=== PATIENT | male | born 1945 | race Caucasian/White ===

== ENCOUNTER 2022-12-04 09:01 | Outpatient (OUT) | payer MEDICARE, SELFPAY ==
[2022-12-04 09:36] LABS: Basophils Absolute Auto 0.1 10^3/uL (0.0-0.1); Basophils Percent Auto 1.3 % (0.2-2.0); Eosinophils Absolute Auto 0.3 10^3/uL (0.0-0.7); Hematocrit 46.7 % (42.0-54.0); Hemoglobin 15.1 g/dL (14.0-18.0); Immature Granulocytes Abs Auto 0.01 10^3/uL (0.00-0.03); Immature Granulocytes Pct Auto 0.2 % (0.0-0.5); Lymphocytes Absolute Auto 1.5 10^3/uL (1.2-3.8); Lymphocytes Percent Auto 27.6 % (20.5-60.0); Mean Corpuscular HGB Conc 32.3 g/dL (29.9-35.2); Mean Corpuscular Hemoglobin 29.2 pg (25.9-34.0); Mean Corpuscular Volume 90.3 fL (80.0-94.0); Mean Platelet Volume 10.8 fL (9.5-13.5); Monocytes Absolute Auto 0.5 10^3/uL (0.3-0.8); Monocytes Percent Auto 9.4 % (1.7-12.0); Neutrophils Absolute Auto 3.1 10^3/uL (1.4-6.5); Neutrophils Percent Auto 55.5 % (43.0-75.0); Platelet Count 221 10^3/uL (150-450); Red Blood Count 5.17 10^6/uL (4.70-6.10); Red Cell Distribution Width 13.6 % (11.0-15.0); White Blood Count 5.5 10^3/uL (4.0-11.0)
[2022-12-04 10:49] LABS: Alanine Aminotransferase 29 U/L (16-63); Anion Gap 9.7; BUN Creatinine Ratio 12.9; Calcium 8.6 mg/dL (8.5-10.1); Carbon Dioxide 30.4 mmol/L (21.0-32.0); Chloride 104 mmol/L (98-107); Chol HDL Ratio 2.6; Cholesterol 197 mg/dL (<=200); Estimated GFR (African America >60 (>=60); Estimated GFR (Non-African Ame >60 (>=60); Glucose 122 mg/dL (74-106); HDL Cholesterol 75 mg/dL (40-60); Potassium 4.1 mmol/L (3.5-5.1); Sodium 140 mmol/L (136-145); Triglycerides 62 mg/dL (<=150); VLDL CHOLESTEROL 12.4 mg/dL
[2022-12-04 11:00] LABS: Prostate Specific Antigen Scrn 0.24 ng/mL (<=4.00)
== END 2022-12-04 09:02 | disposition home or self-care (01) ==
LOC: LAB 09:10
PROVIDERS: PCP Internal Medicine; Visit Provider Internal Medicine
DX: I10 Essential (primary) hypertension (principal); Z79.899 Other long term (current) drug therapy; E78.01 Familial hypercholesterolemia; Z12.5 Encounter for screening for malignant neoplasm of prostate
CPT/HCPCS: 36415; 80048; 80061; 84460; 85025; G0103

== ENCOUNTER 2023-08-23 10:07 | Outpatient (OUT) | payer MEDICARE, SELFPAY ==
--- NOTE | 2023-08-23 10:20 | XR_ITS ---
The [address] [address] Patient Name: CARO JACKSON MRN: [id number] date: 1945 Sex: M Assigned Patient Location: LAB Current Patient Location: LAB Accession/Order Number: [id number] Exam Date: 08/23/2023 10:30 Report Date: 08/23/2023 10:49 At the request of: KAYE ORELLANA Procedure: XR chest 2V PROCEDURE: XR chest 2V DATE: 08/23/2023 9:30 AM CDT COMPARISONS: None. CLINICAL INDICATION: 78 years Male Cough FINDINGS: The cardiomediastinal silhouette and pulmonary vasculature are within normal limits. There is evidence of a few scattered subcentimeter granuloma. The lungs are otherwise clear. There is no consolidating infiltrates to suggest pneumonia. There is no evidence of pleural effusion or pneumothorax. XR/XR chest 2V IMPRESSION: Chest radiograph is essentially within normal limits. Electronically authenticated by: SARAY BORJAS Date: 08/23/2023 10:49
== END 2023-08-23 10:08 | disposition home or self-care (01) ==
LOC: LAB 10:07
PROVIDERS: PCP Internal Medicine; Visit Provider Internal Medicine
DX: R05.9 Cough, unspecified (principal)
CPT/HCPCS: 71046

== ENCOUNTER 2024-01-19 09:05 | Outpatient (OUT) | payer MEDICARE, SELFPAY ==
[2024-01-19 09:23] LABS: Basophils Absolute Auto 0.1 10^3/uL (0.0-0.1); Basophils Percent Auto 1.3 % (0.2-2.0); Eosinophils Absolute Auto 0.5 10^3/uL (0.0-0.7); Eosinophils Percent Auto 8.2 % (0.9-7.0); Hematocrit 43.9 % (42.0-54.0); Hemoglobin 14.7 g/dL (14.0-18.0); Immature Granulocytes Abs Auto 0.01 10^3/uL (0.00-0.03); Immature Granulocytes Pct Auto 0.2 % (0.0-0.5); Lymphocytes Absolute Auto 1.5 10^3/uL (1.2-3.8); Lymphocytes Percent Auto 27.9 % (20.5-60.0); Mean Corpuscular HGB Conc 33.5 g/dL (29.9-35.2); Mean Corpuscular Hemoglobin 29.3 pg (25.9-34.0); Mean Corpuscular Volume 87.5 fL (80.0-94.0); Monocytes Absolute Auto 0.5 10^3/uL (0.3-0.8); Monocytes Percent Auto 9.1 % (1.7-12.0); Neutrophils Absolute Auto 2.9 10^3/uL (1.4-6.5); Neutrophils Percent Auto 53.3 % (43.0-75.0); Platelet Count 208 10^3/uL (150-450); Red Blood Count 5.02 10^6/uL (4.70-6.10); Red Cell Distribution Width 13.4 % (11.0-15.0); White Blood Count 5.5 10^3/uL (4.0-11.0)
--- OUTSIDE RECORDS SUMMARY | 2024-01-19 09:23 | XMS_ITS | CCD ---
Author Organization [facility] Care Team Providers Care Spine Specialist Name Role Phone PHYSICIAN, DEFAULT Unavailable Unavailable PHYSICIAN, DEFAULT Unavailable Unavailable REYNA, DR RESTREPO Primary Care Unavailable BALL, DR RESTREPO Admitting Unavailable BALL, DR RESTREPO Attending Unavailable BALL, DR RESTREPO Consulting Unavailable BALL, DR RESTREPO Admitting Unavailable BALL, DR RESTREPO Attending Unavailable BALL, DR RESTREPO Consulting Unavailable BALL, DR RESTREPO Primary Care Unavailable Reyna, Braeden Unavailable BRAEDEN HERNANDEZ Primary Care Physician Bill RUBY Consulting Unavailable REYNA, BRAEDEN Admitting Unavailable REYNA, BRAEDEN Attending Unavailable REYNA, BRAEDEN Referring Unavailable Bill RUBY Consulting Unavailable Bill RUBY Consulting Unavailable Reyna DOBraeden Primary Care Provider Braeden Hernandez DO Primary Care Provider PATTISAPU, SURINDER K Referring Unavailable BRAEDEN HERNANDEZ E Primary Care Unavailable PATTISAPU, SURINDER K Referring Unavailable REYNA, BRAEDEN E Primary Care Unavailable PATTISAPU, SURINDER K Attending Unavailable PATTISAPU, SURINDER K Referring Unavailable REYNA, BRAEDEN E Primary Care Unavailable REYNA, BRAEDEN E Primary Care Unavailable BALL, BRAEDEN E Referring Unavailable PATTISAPU, SURINDER K Attending Unavailable PATTISAPU, SURINDER K Referring Unavailable BALL, BRAEDEN E Primary Care Unavailable PATTISAPU, SURINDER K Referring Unavailable BALLBRAEDEN E Primary Care Unavailable Allergies Allergy Classification Reported Allergen(s) Allergy Type Date of Onset Reaction(s) Facility (3 sources) patient allergy list reviewed by nurse or physicia Propensity to adverse reactions 6 Comment:Done [employer] Other (9 sources) Doxycycline; Translations: [DOXYCYCLINE] Drug Allergy 7 Vomiting [facility] Medications Current Medications Medication Drug Class(es) Dates Sig (Normalized) Sig (Original) amLODIPine 2.5 mg oral tablet (8 sources) Dihydropyridine Calcium Channel Josiah Start: 11-11-2020 take 1 tablet by mouth twice daily amLODIPine (NORVASC) 2.5 mg tablet Take 2.5 mg by mouth twice daily. 11/11/2020 Active Start: 11-14-2019 take 1 mg by mouth once daily amLODIPine 2.5 mg Tab mg tab(s), Oral, Daily Start Date: 11/14/19 Status: Ordered Comment on above: Take 2.5 mg by mouth twice daily. avanafil 100 mg oral tablet (1 source) Phosphodiesterase 5 Inhibitor Start: 11-14-19 Stendra 100 mg oral tablet 100 mg = 1 tab(s), Oral, As Directed, Take as needed 30 minutes before sexual activity, # 3 tab(s), Refills(s) 6, Pharmacy: [id number], 163, cm, 11/14/19 10:16:00 EDT, Height/Length Dosing, 63.5, kg, 11/14/19 10:16:00 EDT, Weight Dosing Start Date: 11/14/19 Status: Ordered Co Q-10 (1 source) Start: 09-26-19 take 1 tablet by mouth once daily Co Q-10 one tab, Oral, Daily, Prophylaxis Start Date: 09/25/18 Status: Ordered lisinopril 20 mg oral tablet (20 sources) Angiotensin Converting Enzyme Inhibitor Start: 09-26-19 take 1 tablet by mouth twice daily lisinopril (ZESTRIL, PRINIVIL) 20 mg tablet Take 20 mg by mouth twice daily. 11/11/2020 Active take 1 tablet by shalini every twenty-four hours Lisinopril 20 MG 1 tablet Orally Once a day Active Comment on above: Take 20 mg by mouth twice daily. naproxen sodium 220 mg oral tablet (1 source) Nonsteroidal Anti-inflammatory Drug Start: 09-26-19 take 220 mg by mouth every twelve hours as needed for pain Aleve 220 mg, Oral, q12hr, PRN as needed for pain Start Date: 09/25/18 Status: Ordered pramipexole dihydrochloride 0.5 mg oral tablet (20 sources) Nonergot Dopamine Agonist Start: 08-22-19 Pramipexole Active 0.5 MG PO Daily at bedtime 90 90 August 22, 2023 1:55pm TAKE 1 & 1/2 (ONE-HALF) TABLET BY MOUTH ONCE DAILY IN THE EVENING Start: 09-25-2018 End: 08-22-2023 pramipexole (MIRAPEX) 0.25 m g tablet TAKE 1 & 1 2 (ONE HALF) TABLET BY MOUTH ONCE DAILY IN THE EVENING 11/05/2020 Active Comment on above: TAKE 1 & 1 2 (ONE IQBAL LF) TABLET BY MOUTH ONCE DAILY IN THE EVENING rosuvastatin calcium 20 mg oral tablet (6 sources) HMG-CoA Reductase Inhibitor Start: End: 4 take 20 mg by mouth once daily Rosuvastatin Active 20 MG PO Daily 30 June 15, 2023 2:26pm Completed/Discontinued Medications Medication Drug Class(es) Dates Sig (Normalized) Sig (Original) celecoxib 200 mg oral capsule (4 sources) Nonsteroidal Anti-inflammatory Drug Start: 03-10-2006 End: 11-22-2023 CELEBREX 200 MG CAP Take one(1) capsule daily. 0 03/10/2006 11/22/2023 Discontinued Comment on above: Take one(1) capsule daily. lovastatin 40 mg oral tablet (18 sources) HMG-CoA Reductase Inhibitor Start: 09-25-2018 End: 11-22-2023 take 1 tablet by mouth once daily at bedtime lovastatin 40 mg tablet Take 40 mg by mouth daily at bedtime. 10/22/2020 11/22/2023 Discontinued Comment on above: Take 40 mg by mouth daily at bedtime. Problems Active Problems Problem Classification Problem Date Documented Date Episodic/Chronic Acute bronchitis (1 source) Acute bronchitis due to other specified organisms; Translations: [Acute bronchitis] 08-22-2023 Episodic Diabetes mellitus without complication (20 sources) Impaired fasting glycemia; Translations: [Impaired fasting glucose] Episodic Disorders of lipid metabolism (20 sources) Familial hypercholesterolemia; Translations: [Pure hypercholesterolemia] Onset: 02-11-2015 Chronic Disorders of teeth and jaw (1 source) Periapical abscess without sinus Episodic Essential hypertension (20 sources) Essential (primary) hypertension; Translations: [Hypertensive disorder] Onset: 02-08-2014 Chronic Genitourinary symptoms and ill-defined conditions (1 source) Urinary incontinence 11-14-2019 Chronic Heart valve disorders (20 sources) Nonrheumatic aortic (valve) stenosis; Translations: [Rheumatic tricuspid insufficiency] Onset: 10-13-2021 Chronic Hyperplasia of prostate (6 sources) Benign prostatic hypertrophy without outflow obstruction; Translations: [Hypertrophy (benign) of prostate without urinary obstruction and other lower urinary tract symptoms [LUTS]] Onset: 02-11-2015 Chronic Immunizations and screening for infectious disease (3 sources) Vaccination given; Translations: [Encounter for immunization] Episodic Neoplasms of unspecified nature or uncertain behavior (7 sources) Neoplastic disease of uncertain behavior; Translations: [Neoplasm of uncertain behavior of connective and other soft tissue] 03-16-2006 Episodic Osteoarthritis (11 sources) Localized, primary osteoarthritis of the hand; Translations: [Primary localized osteoarthrosis, hand] Onset: 07-20-2017 11-14-2019 Chronic Other aftercare (2 sources) Other radiator fitter (current) 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 therapy; Translations: [OTH INSURANCE COLLECTOR CURRENT DRUG THERAPY] Onset: 12-10-2021 Episodic Other aftercare (3 sources) Long-term current use of drug therapy; Translations: [Other radiator fitter (current) drug therapy] Episodic Other and ill-defined heart disease (1 source) Other ill-defined heart diseases; Translations: [OTHER ILL-DEFINED HEART DISEASES] Onset: 10-14-2021 Chronic Other ear and sense organ disorders (7 sources) Sensorineural hearing loss; Translations: [Unspecified sensorineural hearing loss] 03-16-2006 Chronic Other hereditary and degenerative nervous system conditions (17 sources) Restless legs; Translations: [Restless legs syndrome] 11-14-2019 Chronic Other hereditary and degenerative nervous system conditions (3 sources) Restless legs syndrome; Translations: [Restless legs syndrome (RLS)] Chronic Other injuries and conditions due to external causes (3 sources) History of fall; Translations: [History of falling] Episodic Other lower respiratory disease (3 sources) Cough; Translations: [Cough] 08-22-2023 Episodic Other lower respiratory disease (1 source) Expiratory wheezing; Translations: [Wheezing] 08-22-2023 Episodic Other lower respiratory disease (1 source) Wheezing; Translations: [Wheezing] 08-22-2023 Episodic Other male genital disorders (17 sources) Induratio penis plastica; Translations: [Induration penis plastica] 11-14-2019 Chronic Other male genital disorders (15 sources) Impotence of organic origin; Translations: [Erectile dysfunction due to arterial insufficiency] Onset: 02-24-2016 11-14-2019 Chronic Other male genital disorders (2 sources) Erectile dysfunction co-occurrent and due to arterial insufficiency; Translations: [Erectile dysfunction due to arterial insufficiency] 06-11-2023 Chronic Other nutritional; endocrine; and metabolic disorders (1 source) Hypolipidemia 11-14-2019 Chronic Other screening for suspected conditions (not mental disorders or infectious disease) (10 sources) Encounter for screening for malignant neoplasm of prostate; Translations: [Encounter for screening for diseases of the blood and blood-forming organs and certain disorders involving the immune mechanism] Onset: 02-08-2014 Episodic Residual codes; unclassified (8 sources) Periodic limb movement disorder; Translations: [Periodic limb movement disorder] 06-11-2023 Chronic Residual codes; unclassified (1 source) Periodic limb movement disorder Chronic Residual codes; unclassified (1 source) Procedure and treatment not carried out because of patient's decision for unspecified reasons Episodic Past or Other Problems Problem Classification Problem Date Documented Da te Episodic/Chronic Malaise and fatigue (3 sources) Malaise and fatigue; Translations: [Other malaise and fatigue] Onset: 05-27-2017 Episodic Residual codes; unclassified (3 sources) Requires influenza virus vaccination; Translations: [Need for prophylactic vaccination and inoculation, Influenza] Onset: 12-21-2017 Episodic Unclassified (3 sources) Long-term current use of drug therapy; Translations: [Long-term (current) use of other medications] Onset: 06-05-2018 Results Test Name Value Interpretation Reference Range Facility [facility]lab intern n 12-02-2023 [facility] * * *Final Report* * * DATE OF EXAM: Dec 02 2023 3:54PM [id number] - [facility] SPECT/CT / PROCEDURE REASON: multiple diagnoses * * * * Physician Interpretation * * * * [facility] Report: [facility] Date of service: 12/02/2023 2:47:52 PM CTAC interpreting physician: Rao Harper MD PATIENT: Name: MR. CARO HECTOR Age: 78 years Gender: M 1. Incidental Findings from limited non-diagnostic CTAC: - Coronary calcifications visualized. * * * Final * * * ---- Patient: Name: MR. CARO HECTOR Age: 78 years Gender: M CONCLUSIONS: 1. Not Consistent with TTR amyloidosis * Please note that a negative or mildly positive study does not exclude AL amyloid. In addition, equivocal results could represent AL amyloid or early ATTR. We suggest concomitant workup of AL amyloid with laboratory testing and pathologic assessment as appropriate. Nuclear Med Report: [id number] PLANAR and SPECT: Myocardial imaging of the chest with CT attenuation correction was performed at 3 hours post IV injection of Tc-99m Pyrophosphate. See administered doses below. [facility] Date of service: 12/02/2023 2:47:52 PM Ordering Physician: Requesting Physician: SURINDER DILLON Indication: Suspected Amyloid Heart Disease Interpreting physician: Rao Harper MD CT Dose-Length Product(DLP): 58.0 mGy * cm. CT Dose Reduction Employed: Yes. Exam Type: Rest Study Date: 12/02/2023 Radiopharm: 99m Technetium-HDP Dosage(mCi): 22.6 Injection Time: 11:36:00 AM Atten Correction: performed Time Interval: 3.0 hours Image Quality The overall study imaging quality was deemed to be good. CARDIAC FINDINGS: PLANAR: Visual Comparison to Bone: Grade 0 = No uptake and normal bone uptake (negative for ATTR) SPECT: Uptake Pattern: Absent NON CARDIAC FINDINGS: Summary: Not Consistent with TTR amyloidosis * Please note that a negative or mildly positive study does not exclude AL amyloid. In addition, equivocal results could represent AL amyloid or early ATTR. We suggest concomitant workup of AL amyloid with laboratory testing and pathologic assessment as appropriate. * * * Final * * * RP Commission Auditor: PARTHA Transcribe Date/Time: Dec 02 2023 2:47P Dictated by : RAO HARPER MD This examination was interpreted and the report reviewed and electronically signed by: RAO HARPER MD on Dec 02 2023 4:15PM EST [id number] Normal [facility] SPECT Heart for infarct W Tc -99m PYP Kelly 12-02-2023 * * *Final Report* * * DATE OF EXAM: Dec 02 2023 3:54PM [facility] [id number] - [place] CARDIAC AMYLOID SPECT/CT / PROCEDURE REASON: multiple diagnoses * * * * Physician Interpretation * * * * [place] CTAC Report: [facility] Date of service: 12/02/2023 2:47:52 PM CTAC interpreting physician: Rao Harper MD PATIENT: Name: MR. CARO HECTOR Age: 78 years Gender: M 1. Incidental Findings from limited non-diagnostic CTAC: - Coronary calcifications visualized. * * * Final * * * ---- Patient: Name: MR. CARO HECTOR Age: 78 years Gender: M CONCLUSIONS: 1. Not Consistent with TTR amyloidosis * Please note that a negative or mildly positive study does not exclude AL amyloid. In addition, equivocal results could represent AL amyloid or early ATTR. We suggest concomitant workup of AL amyloid with laboratory testing and pathologic assessment as appropriate. Nuclear Med Report: [id number] PLANAR and SPECT: Myocardial imaging of the chest with CT attenuation correction was performed at 3 hours post IV injection of Tc-99m Pyrophosphate. See administered doses below. [facility] Date of service: 12/02/2023 2:47:52 PM Ordering Physician: Requesting Physician: SURINDER DILLON Indication: Suspected Amyloid Heart Disease Interpreting physician: Rao Harper MD CT Dose-Length Product(DLP): 58.0 mGy * cm. CT Dose Reduction Employed: Yes. Exam Type: Rest Study Date: 12/02/2023 Radiopharm: 99m Technetium-HDP Dosage(mCi): 22.6 Injection Time: 11:36:00 AM Atten Correction: performed Time Interval: 3.0 hours Image Quality The overall study imaging quality was deemed to be good. CARDIAC FINDINGS: PLANAR: Visual Comparison to Bone: Grade 0 = No uptake and normal bone uptake (negative for ATTR) SPECT: Uptake Pattern: Absent NON CARDIAC FINDINGS: Summary: Not Consistent with TTR amyloidosis * Please note that a negative or mildly positive study does not exclude AL amyloid. In addition, equivocal results could represent AL amyloid or early ATTR. We suggest concomitant workup of AL amyloid with laboratory testing and pathologic assessment as appropriate. * * * Final * * * RP Commission Auditor: GOODSTEPHEN Transcribe Date/Time: Dec 02 2023 2:47P Dictated by : RAO HARPER MD This examination was interpreted and the report reviewed and electronically signed by: RAO HARPER MD on Dec 02 2023 4:15PM [facility] Provider, [facility] - 12/02/2023 * * *Final Report* * * DATE OF EXAM: Dec 02 2023 3:54PM [facility] 0847 - [place] CARDIAC AMYLOID SPECT/CT / PROCEDURE REASON: multiple diagnoses * * * * Physician Interpretation * * * * [place] CTAC Report: [facility] Date of service: 12/02/2023 2:47:52 PM CTAC interpreting physician: Rao Harper MD PATIENT: Name: MR. CARO HECTOR Age: 78 years Gender: M 1. Incidental Findings from limited non-diagnostic CTAC: - Coronary calcifications visualized. * * * Final * * * ---- Patient: Name: MR. CARO HECTOR Age: 78 years Gender: M CONCLUSIONS: 1. Not Consistent with TTR amyloidosis * Please note that a negative or mildly positive study does not exclude AL amyloid. In addition, equivocal results could represent AL amyloid or early ATTR. We suggest concomitant workup of AL amyloid with laboratory testing and pathologic assessment as appropriate. Nuclear Med Report: [id number] PLANAR and SPECT: Myocardial imaging of the chest with CT attenuation correction was performed at 3 hours post IV injection of Tc-99m Pyrophosphate. See administered doses below. [facility] Date of service: 12/02/2023 2:47:52 PM Ordering Physician: Requesting Physician: SURINDER DILLON Indication: Suspected Amyloid Heart Disease Interpreting physician: Rao Harper MD CT Dose-Length Product(DLP): 58.0 mGy * cm. CT Dose Reduction Employed: Yes. Exam Type: Rest Study Date: 12/02/2023 Radiopharm: 99m Technetium-HDP Dosage(mCi): 22.6 Injection Time: 11:36:00 AM Atten Correction: performed Time Interval: 3.0 hours Image Quality The overall study imaging quality was deemed to be good. CARDIAC FINDINGS: PLANAR: Visual Comparison to Bone: Grade 0 = No uptake and normal bone uptake (negative for ATTR) SPECT: Uptake Pattern: Absent NON CARDIAC FINDINGS: Summary: Not Consistent with TTR amyloidosis * Please note that a negative or mildly positive study does not exclude AL amyloid. In addition, equivocal results could represent AL amyloid or early ATTR. We suggest concomitant workup of AL amyloid with laboratory testing and pathologic assessment as appropriate. * * * Final * * * RP Commission Auditor: PARTHA Transcribe Date/Time: Dec 02 2023 2:47P Dictated by : RAO HARPER MD This examination was interpreted and the report reviewed and electronically signed by: RAO HARPER MD on Dec 02 2023 4:15PM EST [facility] Radiology Study observation (narrative) [facility] SPECT Heart for infarct W Tc -99m PYP IVOrdered By: Ccf Provider on 12-02-2023 [facility] [place] 12-01-2023 SHAHRAM Telephone (CARDAV) CARO HECTOR ([id number]) 1945 M Date Time Provider Department 12/01/23 SURINDER DILLON During your visit today, we recorded the following information about you: Priscilla Odell 12/01/2023 2:05 PM Signed Patient would like his records and testings from Dr Dillon faxed over to his PCP please fax to: [phone] Attn: Braeden Hernandez. Please send over. Patient has been identified by name and birthdate. Duration of symptoms: N/A Person calling: spouse: Hilaria Ye patient at: on cell [phone] (cell) Was an appointment scheduled: No Closing statement: Results or non-symptom based questions: Thank you for calling [facility], your call will be returned within the next business day. Deborah Briones RN 12/01/2023 3:38 PM Signed Printed and faxed to number provided. Confirmation received. Allergies As of Date: 12/01/2023 Noted Allergy Reaction DOXYCYCLINE 03/22/2006 11 - Vomiting Date Reviewed: 11/22/2023 Reviewed by: Gianna Gyu RN - Fully Assessed Reason for Visit: Fax over Records to PCP [Other] Prescriptions as of 12/01/2023 - rosuvastatin (CRESTOR) 20 mg tablet Take 20 mg by mouth once daily. - amLODIPine (NORVASC) 2.5 mg tablet Take 2.5 mg by mouth twice daily. - lisinopril (ZESTRIL, PRINIVIL) 20 mg tablet Take 20 mg by mouth twice daily. 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] UNCERTAIN BEHAV NEOPL SOFT TISSUE [D48.19] Nonrheumatic aortic valve stenosis [I35.0] 04/25/2023 Encounter Status:Closed by DEBORAH MERAZ on 12/01/23 Normal [facility] Basic metabolic 2000 panelon 11-24-2023 Anion gap [Moles/Vol] 4 mmol/L Low 8-15 [facility] Comment on above: Order Comment: Speci men Type: BLOOD SPECIMEN Ordering Facility: [facility] Address: [address] [place] [address] Performed By: #### 2 4321-2, 15097-5 #### NANDO [facility] CLIA [id number] [address] [place] [address] [place] Calcium [Mass/Vol] 9.5 mg/dL Normal 8.5-10.[address] [facility] Comment on above: Order Comment: Speci men Type: BLOOD SPECIMEN Ordering Facility: [facility] Address: [address] [place] [address] Performed By: #### 2 4321-2, 95690-7 #### NANDO [facility] CLIA [id number] [address] [place] [address] [place] Chloride [Moles/Vol] 105 mmol/L Normal 98-107 [facility] Comment on above: Order Comment: Speci men Type: BLOOD SPECIMEN Ordering Facility: [facility] Address: [address] [place] [address] Performed By: #### 2 4321-2, 31682-1 #### NANDO [facility] CLIA [id number] [address] [place] [address] [place] CO2 [Moles/Vol] 30 mmol/L Normal 22-30 [facility] Comment on above: Order Comment: Speci men Type: BLOOD SPECIMEN Ordering Facility: [facility] Address: [address] [place] [address] Performed By: #### 2 4321-2, 52978-3 #### NANDO [facility] CLIA [id number] [address] [place] [address] [place] Creatinine [Mass/Vol] 0.90 mg/dL Normal 0.73-1.22 [facility] Comment on above: Order Comment: Speci men Type: BLOOD SPECIMEN Ordering Facility: [facility] Address: [address] [place] [address] Performed By: #### 2 4321-2, 48561-9 #### [facility] CLIA [id number] [address] [place] [address] [place] Creatinine and Glomerular filtration rate.predicted panel (S/P/Bld) 89 mL/min/1.73m??? Normal >=60 [facility] Comment on above: Order Comment: Malaika rincon Type: BLOOD SPECIMEN Ordering Facility: [facility] Address: [address] [place] [address] Result Comment: Karli mated Glomerular Filtration Rate (eGFR) is calculated using the 2020 CKD-EPI creatinine equation. This equation utilizes serum creatinine, sex, and age as parameters. The creatinine assay has traceable calibration to isotope dilution-mass spectrometry. Refer to KDIGO guidelines for clinical interpretation. In patients with unstable renal function, e.g. those with acute kidney injury, the eGFR may not accurately reflect actual GFR. Performed By: #### 2 4321-2, 23936-1 #### [facility] CLIA [id number] [address] [place] [address] [place] Glucose [Mass/Vol] 131 mg/dL High 74-[address] [facility] Comment on above: Order Comment: Malaika rincon Type: BLOOD SPECIMEN Ordering Facility: [facility] Address: [address] [place] [address] Result Comment: The [place] Diabetes Association (ADA) provides guidance for cutoff values for fasting glucose and random glucose. The ADA defines fasting as no caloric intake for at least 8 hours. Fasting plasma glucose results between 100 to 125 mg/dL indicate increased risk for diabetes (prediabetes). Fasting plasma glucose results greater than or equal to 126 mg/dL meet the criteria for diagnosis of diabetes. In the absence of unequivocal hyperglycemia, results should be confirmed by repeat testing. In a patient with classic symptoms of hyperglycemia or hyperglycemic crisis, random plasma glucose results greater than or equal to 200 mg/dL meet the criteria for diagnosis of diabetes. Reference: Standards of Medical Care in Diabetes 2016, [place] Diabetes Association. Diabetes Care. 2016.39(Suppl 1). Performed By: #### 2 4321-2, 70468-9 #### [facility] CLIA [id number] [address] [place] [address] [place] Potassium [Moles/Vol] 4.8 mmol/L Normal 3.7-5.1 [facility] Comment on above: Order Comment: Speci men Type: BLOOD SPECIMEN Ordering Facility: [facility] Address: [address] [place] [address] Performed By: #### 2 432-2, 13331-0 #### NANDO [facility] CLIA [id number] [address] [place], [place] [id number] [place] Sodium [Moles/Vol] 139 mmol/L Normal 136-[address] [facility] Comment on above: Order Comment: Speci men Type: BLOOD SPECIMEN Ordering Facility: [facility] Address: [address] [place] [address] Performed By: #### 2 432-2, 98277-2 #### [facility] [place]Angelina [facility] CLIA [id number] [address] [place] [address] [place] Urea nitrogen [Mass/Vol] 14 mg/dL Normal 9-24 [facility] Comment on above: Order Comment: Speci men Type: BLOOD SPECIMEN Ordering Facility: [facility] Address: [address] [place] [address] Performed By: #### 2 432-2, 69724-7 #### [facility] CLIA [id number] [address] [place], [place] [address] [place] IMMUNOFIXATION SCREEN, SERUM on 11-24-2023 MPA RESULT No M protein is identified. Normal No M protein is identified. [facility] Comment on above: Order Comment: Speci men Type: BLOOD SPECIMEN Ordering Facility: [facility] Address: [address] [place] [address] Performed By: #### I [facility] #### [facility] CLIA [id number] [address] [place] [address] [place] [address] [place] STAFF REVIEW (MPA) Reviewed by Kai Bailey MD, Ph.D ([id number]) Normal [facility] Comment on above: Order Comment: Speci men Type: BLOOD SPECIMEN Ordering Facility: [facility] Address: [address] [place] [address] Performed By: #### I [facility] #### [facility] CLIA [id number] [address] [place] [address] [id number] [place] [address] [place] KAPPA/KIMBLE,FREE,SERon 2023 Immunoglobulin light chains.kappa.free (S) [Mass/Vol] 17.1 mg/L Normal 3.3-19.4 [facility] Comment on above: Order Comment: Speci men Type: BLOOD SPECIMEN Ordering Facility: [facility] Address: [address] [place] [address] Result Comment: Rare ly, increased serum free light chains levels may not be detected or accurately quantified due to prozone phenomenon or in high viscosity samples using this immunoturbidimetric assay. Correlation with other laboratory results and clinical findings is recommended. The [place] Free Light Chain was performed using the Binding Site Optilite immunoturbidimetric method. Result obtained with different assay methods or kits cannot be used interchangeably. Performed By: #### 2 4321-2, 86638-8 #### AMHORTEGAT [facility] CLIA [id number] [address] [place] [address] [place] Immunoglobulin light chains.kappa/Immunog lobulin light chains.lambda (S) [Mass ratio] 1.22 Normal 0.26-1.65 [facility] Comment on above: Order Comment: Speci men Type: BLOOD SPECIMEN Ordering Facility: [facility] Address: [address] [place] [address] Performed By: #### 2 4321-2, 64259-0 #### [facility] CLIA [id number] [address] [place] [address] [place] Immunoglobulin light chains.lambda.free [Mass/Vol] 14.0 mg/L Normal 5.7-26.3 [facility] Comment on above: Order Comment: Speci men Type: BLOOD SPECIMEN Ordering Facility: [facility] Address: [address] [place] [address] Result Comment: Rare ly, increased serum free light chains levels may not be detected or accurately quantified due to prozone phenomenon or in high viscosity samples using this immunoturbidimetric assay. Correlation with other laboratory results and clinical findings is recommended. The [place] Free Light Chain was performed using the Binding Site Optilite immunoturbidimetric method. Result obtained with different assay methods or kits cannot be used interchangeably. Performed By: #### 2 4321-2, 88229-9 #### YAHIRT [facility] CLIA [id number] [address] [place] [address] OF [facility] Lipid 1996 panelon 4 Cholesterol [Mass/Vol] 167 mg/dL Normal <200 [facility] Comment on above: Order Comment: Kevini sergey Type: BLOOD SPECIMEN Ordering Facility: [facility] Address: [address] [place] [address] Result Comment: <200 mg/dL, Desirable 200-239 mg/dL, Borderline high >239 mg/dL, High Performed By: #### 2 4321-2, 98812-6 #### YAHIRT [facility] CLIA [id number] [address] [place] [address] Cholesterol in HDL [Mass/Vol] 67 mg/dL Normal >39 [facility] Comment on above: Order Comment: Speci sergey Type: BLOOD SPECIMEN Ordering Facility: [facility] Address: [address] [place] [address] Result Comment: 40-5 9 mg/dL, Acceptable >59 mg/dL, High: Negative risk factor for coronary heart disease <40 mg/dL, Low: Positive risk factor for coronary heart disease Performed By: #### 2 4321-2, 75081-5 #### [facility] CLIA [id number] [address] [place] [address] Cholesterol in LDL [Mass/Vol] 80 mg/dL Normal <100 [facility] Comment on above: Order Comment: Speci men Type: BLOOD SPECIMEN Ordering Facility: [facility] Address: [address] [place] [address] Result Comment: <100 mg/dL, Optimal 100-129 mg/dL, Near optimal/above optimal 130-159 mg/dL, Borderline high 160-189 mg/dL, High >189 mg/dL, Very high Secondary prevention optimal LDL Cholesterol levels are recommended to be < 70 mg/dL Performed By: #### 2 4321-2, 99029-7 #### YAHIRT [facility] CLIA [id number] [address] [place] [address] [facility] Cholesterol in LDL/Cholesterol in HDL [Mass ratio] 1.19 {ratio} Normal <2.54 [facility] Comment on above: Order Comment: Speci men Type: BLOOD SPECIMEN Ordering Facility: [facility] Address: [address] [place] [address] Result Comment: Refe rence: 1. National Cholesterol Education Program ATP III Guideline At-A-Glance Quick Desk Reference: National Heart, Lung, and Blood [place]. National Institutes of Health. 2001: NIH Publication No. 01-3305. 2. An International Atherosclerosis Society position paper: global recommendations for the management of dyslipidemia: executive summary, Atherosclerosis. 2014: 232(2):410-413. Performed By: #### 2 4321-2, 38601-4 #### NANDO [facility] CLIA [id number] [address] [place] [address] [place] Cholesterol in VLDL [Mass/Vol] 20 mg/dL Normal <30 [facility] Comment on above: Order Comment: Speci men Type: BLOOD SPECIMEN Ordering Facility: [facility] Address: [address] [place] [address] Performed By: #### 2 4321-2, 39236-8 #### YAHIRT [facility] CLIA [id number] [address] [place], [place] [address] [place] Cholesterol non HDL [Mass/Vol] 100 mg/dL Normal <130 [facility] Comment on above: Order Comment: Kevini men Type: BLOOD SPECIMEN Ordering Facility: [facility] Address: [address] [place] [address] Result Comment: <130 mg/dL, Optimal 130-159 mg/dL, Near optimal/above optimal 160-189 mg/dL, Borderline high 190-219 mg/dL, High >219 mg/dL, Very high Secondary prevention optimal non HDL Cholesterol levels are recommended to be <100 mg/dL Performed By: #### 2 4321-2, 68868-0 #### YAHIRT [facility] CLIA [id number] [address] [place] [address] Cholesterol.total/Ch olesterol in HDL [Mass ratio] 2.49 {ratio} Normal <5.10 [facility] Comment on above: Order Comment: Speci men Type: BLOOD SPECIMEN Ordering Facility: [facility] Address: [address] [place] [address] Performed By: #### 2 4321-2, 24768-1 #### [facility] CLIA [id number] [address] [place] [address] FASTING TIME 10 hrs Normal [facility] Comment on above: Order Comment: Speci men Type: BLOOD SPECIMEN Ordering Facility: [facility] Address: [address] [place] [address] Performed By: #### 2 4321-2, 98070-2 #### [facility] CLIA [id number] [address] [place] [address] Triglyceride [Mass/Vol] 100 mg/dL Normal <150 [facility] Comment on above: Order Comment: Speci men Type: BLOOD SPECIMEN Ordering Facility: [facility] Address: [address] [place] [address] Result Comment: <150 mg/dL, Normal 150-199 mg/dL, Borderline high 200-499 mg/dL, High >499 mg/dL, Very high Performed By: #### 2 4321-2, 80899-2 #### [facility] [place] [facility]Angelina [facility] CLIA [id number] [address] [place], [place] [address] [place] MONOCLONAL PROT UR W/INTERPo n 11-24-2023 STAFF REVIEW ([facility]) Reviewed by Kai Bailey MD, Ph.D ([id number]) Normal [facility] Comment on above: Order Comment: Speci men Type: URINE SPECIMEN Ordering Facility: [facility] Address: [address] [place] [address] Performed By: #### U RMPA #### [facility] CLIA [id number] [address] [place] [address] [place] UMPA RESULT No M protein is identified. Normal No M protein is identified. [facility] Comment on above: Order Comment: Speci men Type: URINE SPECIMEN Ordering Facility: [facility] Address: [address] [place] [address] Performed By: #### U RMPA #### [facility] CLIA [id number] [address] [place] [address] [place] NT-proBNP [facility] 11-23 Natriuretic peptide.B prohormone N-Terminal [Mass/Vol] 122 pg/mL Normal <450 [facility] Comment on above: Order Comment: Speci men Type: BLOOD SPECIMEN Ordering Facility: [facility] Address: [address] [place] [address] Performed By: #### 2 4321-2, 95715-3 #### AMHORTEGAT [facility] CLIA [id number] [address] [place] [address] [place] Prot/Creat Uron 11-24-2023 Protein/Creatinine (U) [Mass ratio] 0.07 mg/mg Normal <0.15 [facility] Comment on above: Order Comment: Speci men Type: URINE SPECIMEN Ordering Facility: [facility] Address: [address] [place] [address] Result Comment: Adul t Proteinuria Categories: <0.15 mg/mg is considered normal to mildly increased 0.15 - 0.50 mg/mg is considered moderately increased >0.50 mg/mg is considered severely increased KDIGO. (2013). KDIGO 2012 Clinical Practice Guideline for the Evaluation and Management of Chronic Kidney Disease. Official Journal of the International Society of Nephrology, 3(1), 1-150. Performed By: #### 2 357-2 #### [facility] [place] [id number] [address] [place] [address] [place] Protein/Creatinine (U) [Mass ratio]on 11-24-2023 Creatinine (U) [Mass/Vol] 70.0 mg/dL Normal 20.0-300.0 [facility] Comment on above: Order Comment: Speci men Type: URINE SPECIMEN Ordering Facility: [facility] Address: [address] [place] [address] Performed By: #### 2 890-2 #### [facility] [place] [id number] [address] [place] [address] STATES [facility] Protein (U) [Mass/Vol] 5 mg/dL Normal 0-20 [facility] Comment on above: Order Comment: Speci men Type: URINE SPECIMEN Ordering Facility: [facility] Address: [address] [place] [address] Performed By: #### 2 890-2 #### [facility] [place] [id number] [address] [place] [address] OF [facility] CNOVon 11-22-2023 CNOV Office Visit (CARDAV ) CARO HECTRO ([id number]) 1945 M Date Time Provider Department 11/22/23 3:00 PM SURINDER DILLON During your visit today, we recorded the following information about you: Pulse Blood pressure Weight 60/minute 146/60 61.2 kg Surinder Dillon MD 11/22/2023 3:11 PM [facility] [place] Radhika Campbell Department of Cardiovascular Medicine SECTION OF CARDIOLOGY OUTPATIENT VISIT DATE 11/22/2023 OUTPATIENT VISIT TYPE Established CHIEF COMPLAINT: CV HISTORY OF PRESENT ILLNESS: Mr. Hector is a pleasant 78 year old male here for cardiovascular follow-up. Initial consultation 04/26/2023. Symptom-adames, BP at home 112-132/DBP 58-72 No CP/dyspnea/leg swelling/major bleeding. CURRENT MEDICATIONS: amLODIPine (NORVASC) 2.5 mg tablet Take 2.5 mg by mouth twice daily. lisinopril (ZESTRIL, PRINIVIL) 20 mg tablet Take 20 mg by mouth twice daily. lovastatin 40 mg tablet Take 40 mg by mouth daily at bedtime. pramipexole (MIRAPEX) 0.25 mg tablet TAKE 1 AND 1 2 (ONE HALF) TABLET BY MOUTH ONCE DAILY IN THE EVENING I have personally interviewed, confirmed and edited the above information if obtained by others. Physical Exam BP 146/60 (BP Site: Left Arm, BP Position: Sitting, BP Cuff Size: Regular Adult) Pulse 60 Wt 61.2 kg (134 lb 14.7 oz) SpO2 98% Gen: alert, no acute distress, with HEENT: normocephalic, atraumatic, no rinorrhea, no congestion, normal hearing, EOMI, no eye discharge Heart: 3/6 mid peaking systolic murmur, S1/S2+, regular rate and rhythm Lungs: no wheezing, no rales, symmetric expansion, nonlabored Abdomen: soft, nontender, nondistended Musculoskeletal: no edema, nontender Neurological: no focal deficits, alert, oriented Psychatric: cooperative, appropriate Pertinent Diagnostics/Labs/Data reviewed (ECGs and echo listed personally reviewed today or prior) and include: 04/26/23 ECG: NSR, cannot exclude septal infarct pattern; nonspecific ST changes 12/04/2022: LDL 110, HDL 75, TG 65 TTE 11/22/2023: LVEF ~65%, mild LVH, , G1DD, low-normal LA pressures, normal LA/RA size, 1+ AR, Moderate aortic stenosis: AV peak V 3.34m/s, AV mean 25mmHgm DVI 0.29, RENETTA 0.89cm2, relative regional strain 0.7 some apical sparring pattern TTE report only 11/22/2022: LVEF 60-65%, normal LA/RA size, normal RVSF; mod , mild AI, trileaflet AV - RENETTA 1.5cm2, Assessment AND Plan Aortic Stenosis - mostly moderate aortic stenosis, RENETTA in severe range visually calcified Abnormal strain pattern Other: HTN, HLD, OA, minimal smoking in past as teenager, other Impression: New to me 04/26/2023: BP at home per their report; active lifestyle; continue lovastatin; discussed AV, suspect mild-moderate. 11/22/2023: BP at home better. Increase water hydration. Reviewed echocardiogram. Borderline apical sparring. Now on rosuvastatin lipids improved with Dr. Hernandez. Plan: Rosuvastatin 20mg every day , Lisinopril 20mg bid, Amlodipine 2.5mg bid -Re-eval aortic valve disorder in ~ 9 months -Tc-PYP scan and UPEP, KUN, FLC ordered today for amyloid work-up as well as Lp(a) and repeat lipids and BNP/BMP hemodynamics for -Echocardiogram ~ 9 months with follow-up Thank you, CONTACT INFORMATION: Surinder Dillon M.D. Cardiovascular Medicine Staff [facility] Mail Code [id number] [facility] [place] [address] Referring Provider: SURINDER DILLON [[id number]] Allergies As of Date: 11/22/2023 Noted Allergy Reaction DOXYCYCLINE 03/22/2006 11 - Vomiting Date Reviewed: 11/22/2023 Reviewed by: Gianna Guy RN - Fully Assessed Reason for Visit: Established Patient [175] Primary Visit Diagnosis:Nonrheumatic aortic valve stenosis [I35.0] Other Visit Diagnoses:Primary hypertension [I10] Abnormal echocardiogram [R93.1] Order(s):KAPPA/KIMBLE,LAURY E,SER [SQKLFRS] Order #: [id number] FUTURE IMMUNOFIXATION SCREEN, SERUM [SQIFESC] Order #: [id number] FUTURE MONOCLONAL PROT UR W/INTERP [SQURMPA] Order #: [id number] FUTURE PROTEIN / CREATININE RATIO [SQPRATIO] Order #: [id number] FUTURE NM SPECT/CT CARDIAC AMYLOID [[id number]] Order #: [id number] FUTURE LIPID PANEL BASIC [SQLIPB] Order #: [id number] FUTURE ECHO [468085] Order #: [id number]: 1 FUTURE BASIC METABOLIC PANEL [SQBMP] Order #: [id number] FUTURE NT PRO BNP [SQNTBNP] Order #: [id number] FUTURE Prescriptions as of 11/22/2023 - rosuvastatin (CRESTOR) 20 mg tablet Take 20 mg by mouth once daily. - amLODIPine (NORVASC) 2.5 mg tablet Take 2.5 mg by mouth twice daily. - lisinopril (ZESTRIL, PRINIVIL) 20 mg tablet Take 20 mg by mouth twice daily. - pramipexole (MIRAPEX) 0.25 mg tablet TAKE 1 AND 1 2 (ONE HALF) TABLET BY MOUTH ONCE DAILY IN THE EVENING Problem List As Of Date 11/22/2023 Noted Resolved SENSORN (more content not included)... Normal [facility] ECHOon 11-22-2023 Echocardiography Echocardiography Report: Transthoracic Echo [facility] Date of service: 11/22/2023 1:40:37 PM [facility] [employer] Ordering physician: SURINDER DILLON Indication: aortic stenosis Technologist: Guerline Rodriguez Interpreting physician: Jacob Hamm MD PATIENT: Name: MR. CARO HECTOR : 1945 Age: 78 years Gender: M Primary rhythm: sinus. Height: 167.60 cm BSA: 1.72 m Weight: 63.40 kg BMI: 22.6 kg/m Heart rate 64 bpm Blood pressure 165/64 mmHg Technically difficult exam due to body habitus. Color Doppler was utilized to interrogate the cardiac valves assessed and spectral Doppler was utilized to determine the flow velocities and pressure gradients reported in this exam. MEASUREMENTS: Value Indexed Normal Max aortic dimension 3.6 cm Ao < 3.8 Left atrial volume 54 ml (biplane A-L) 32 ml/m Pantera <= 34 LV ID (diastole) 4.3 cm (2D) 2.51 cm/m LV ID (systole) 2.5 cm (2D) 1.45 cm/m IVS, leaflet tips 1.2 cm (2D) Posterior wall thickness 1.1 cm (2D) Left ventricular mass 172 g (2D) 100 g/m LV stroke volume 56 ml (2D biplane) LVOT stroke volume 65 ml 38 ml/m LVOT cardiac output 12.8 l/min 7.5 l/min/m LV end diastolic volume 97 ml (2D biplane) 56.5 ml/m 34<=EDVi<75 LV end systolic volume 41 ml (2D biplane) 23.8 ml/m Ejection Fraction 58 % (2D biplane) EF > 52 FINDINGS: LEFT VENTRICLE The left ventricle is normal in size. There is mild concentric left ventricular hypertrophy. Left ventricular systolic function is normal. Grade I left ventricular diastolic dysfunction. Mitral annular lateral E/e': 5.7. Mitral annular septal E/e': 5.1. Wall Motion: All scored segments are normal. RIGHT VENTRICLE The right ventricle is normal in size. Right ventricular systolic function is normal. RV systolic tissue Doppler velocity is 12.0 cm/s. Tricuspid annular displacement is 2.5 cm. Estimated right ventricular systolic pressure is likely underestimated due to a weak or incomplete tricuspid regurgitation signal and is, at least, 18 mmHg consistent with normal pulmonary artery pressures. Estimated right atrial pressure is 3 mmHg based on IVC assessment. LEFT ATRIUM The left atrial cavity is normal in size. Pulmonary Veins: The pulmonary venous pattern showed normal systolic flow. RIGHT ATRIUM The right atrial cavity is normal in size. Inferior Vena Cava: The inferior vena cava appears normal measuring 1.3 cm. The vessel decreases greater than 50 percent with inspiration. MITRAL VALVE There is trace mitral valve regurgitation. There is mild thickening. The pressure half time is 79 msec. The peak mitral E/A ratio is 0.51. The average mitral E/e' ratio is 5.4. The mitral flow deceleration time is 271 msec. TRICUSPID VALVE There is trace tricuspid valve regurgitation. There is no thickening. The hepatic venous pattern showed normal systolic flow. AORTIC VALVE There is moderate aortic valve stenosis caused by calcified valve. There is mild (1+ - 2+) aortic valve regurgitation. There is moderate calcification. The peak gradient is 45 mmHg (peak velocity = 333.7 cm/s). The mean gradient is 25 mmHg. The LVOT mean velocity is 66.3 cm/s. The LVOT diameter is 2.0 cm. The aortic VTI is 72.3 cm. The mean velocity in the aortic valve is 236.6 cm/s. The dimensionless valve index is 0.29. AV area is 0.89 cm (0.52 cm /m ) by continuity, VTI. The LVOT stroke volume index is 38 ml/m . PULMONIC VALVE There is no pulmonic valve regurgitation. There is no thickening. AORTA The visualized aorta is normal in size. Measurements - Sinus: 3.6 cm. Mid ascending aorta 3.4 cm. Distal ascending aorta 3.3 cm. Mid arch 2.7 cm. PULMONARY ARTERIES The pulmonary arteries are unseen or not interrogated. PERICARDIUM There is an epicardial fat pad. CONCLUSIONS: - Technically difficult exam due to body habitus. - Exam indication: aortic stenosis - The left ventricle is normal in size. There is mild concentric left ventricular hypertrophy. Left ventricular systolic function is normal. EF = 58 5% (2D biplane) Grade I left ventricular diastolic dysfunction. - The right ventricle is normal in size. Right ventricular systolic function is normal. - There is moderate aortic valve stenosis caused by calcified valve. AV area is 0.89 cm (0.52 cm /m ) by continuity, VTI. The peak gradient is 45 mmHg, the mean gradient is 25 mmHg and the dimensionless valve index is 0.29. Difficult to determine valve morphology due to heavy calcification. - The patient has not had a prior CC echocardiographic exam for comparison. * * * Final * * * [facility] : [id number] Normal [facility] Cholesterol in LDL Calc [Mas s/Vol]on 08-10-2023 Cholesterol in LDL [Mass/Vol] 76.0 mg/dL [facility] Comment on above: <100 mg/dl [id number] 0-129 mg/dl NEAR OR ABOVE [id number] mg/dl BORDERLINE [id number] mg/dl HIGH>190 mg/dl VERY HIGH Cholesterol in VLDL Calc [Ma ss/Vol]on 08-10-2023 Cholesterol in VLDL [Mass/Vol] 19.2 mg/dL [facility] Laboratory - Chemistry and C hemistry - challengeon 08-10-2023 Cholesterol [Mass/Vol] 163 mg/dL <=200 [facility] Cholesterol in HDL [Mass/Vol] 68 mg/dL 40-60 [facility] Comment on above: > or =60 mg/dl - LOW CARDIOVASCULAR RISK<40 mg/dl - HIGH CARDIOVASCULAR RISK Triglyceride [Mass/Vol] 96 mg/dL <=150 [facility] Serum or plasma total choles terol/high density lipoprotein (HDL) cholesterol mass vazquez 08-10-2023 Cholesterol.total/Ch olesterol in HDL [Mass ratio] 2.4 {ratio} [facility] Comment on above: 3.3 - 4.4 LOW RISK4. 4 - 7.1 AVERAGE RISK7.1 - 11.0 MODERATE RISK>11.0 HIGH RISK CNCOon 07-26-2023 CNCO Letter Text Normal [facility] CNOVon 04-26-2023 CNOV Office Visit (CARDLAY ) CARO HECTOR ([id number]) 1945 M Date Time Provider Department 04/26/23 1:00 PM SURINDER DILLON During your visit today, we recorded the following information about you: Pulse Blood pressure Weight 77/minute 160/76 63.4 kg Surinder Dillon MD 04/26/2023 1:29 PM [facility] [place] Radhika Campbell Department of Cardiovascular Medicine SECTION OF CARDIOLOGY OUTPATIENT VISIT DATE April 26, 2023 OUTPATIENT VISIT TYPE NEW CONSULTATION CHIEF COMPLAINT: CV HISTORY OF PRESENT ILLNESS: Mr. Hector is a pleasant 77 year old male here for cardiovascular evaluation. Symptom-adames, BP at home 110/60s. No CP/dyspnea/leg swelling/major bleeding. Staying active; staying hydrated. The following portions of the patient's history were reviewed and updated as appropriate, allergies, current medications, past medical, social, surgical, and family history and problem list. PAST MEDICAL HISTORY Diagnosis Date Generalized osteoarthrosis, unspecified site HTN (hypertension) Neoplasm of uncertain behavior of connective and other soft tissue Nonrheumatic aortic valve stenosis 04/25/2023 Sensorineural hearing loss, unspecified Sensorineural hearing loss PAST SURGICAL HISTORY Procedure Laterality Date LIPOMA (LARGE) Right arm TONSILLECTOMY PRIMARY/SECONDARY Tonsillectomy FAMILY HISTORY Problem Relation Age of Onset Diabetes Mother Social History Tobacco Use Smoking status: Former Packs/day: 0.50 Years: 5.00 Additional pack years: 0.00 Total pack years: 2.50 Types: Cigarettes Quit date: 03/10/1965 Years since quittin.1 Vaping Use Vaping Use: Never used Substance Use Topics Alcohol use: Yes Comment: occ ALLERGIES Allergen Reactions Doxycycline Vomiting CURRENT MEDICATIONS: amLODIPine (NORVASC) 2.5 mg tablet Take 2.5 mg by mouth twice daily. lisinopril (ZESTRIL, PRINIVIL) 20 mg tablet Take 20 mg by mouth twice daily. lovastatin 40 mg tablet Take 40 mg by mouth daily at bedtime. pramipexole (MIRAPEX) 0.25 mg tablet TAKE 1 AND 1 2 (ONE HALF) TABLET BY MOUTH ONCE DAILY IN THE EVENING CELEBREX 200 MG CAP Take one(1) capsule daily. (Patient not taking: Reported on 04/26/2023) I have personally interviewed, confirmed and edited the above information if obtained by others. Physical Exam BP 160/76 (BP Site: Left Arm, BP Position: Sitting, BP Cuff Size: Regular Adult) Pulse 77 Wt 63.4 kg (139 lb 12.4 oz) Gen: alert, no acute distress, with HEENT: normocephalic, atraumatic, no rinorrhea, no congestion, normal hearing, EOMI, no eye discharge Heart: 3/6 early peaking systolic murmur, S1/S2+, regular rate and rhythm Lungs: no wheezing, no rales, symmetric expansion, nonlabored Abdomen: soft, nontender, nondistended Musculoskeletal: no edema, nontender Neurological: no focal deficits, alert, oriented Psychatric: cooperative, appropriate Pertinent Diagnostics/Labs/Data reviewed (ECGs and echo listed personally reviewed today or prior) and include: 04/26/23 ECG: NSR, cannot exclude septal infarct pattern; nonspecific ST changes 12/04/2022: LDL 110, HDL 75, TG 65 TTE report only 11/22/2022: LVEF 60-65%, normal LA/RA size, normal RVSF; mod , mild AI, trileaflet AV - RENETTA 1.5cm2, Assessment AND Plan Aortic Stenosis Other: HTN, HLD, OA, minimal smoking in past as teenager, other Impression/Plan: -BP at home better per their report. Continue to monitor. -Discussed continue active lifestyle, good water hydration -Continue Lovastatin (can consider adjustment if LDL not <100 next time), Lisinopril 20mg bid, Amlodipine 2.5mg bid -Discussed aortic valve morphology, disorders, surveillance, treatment options, progression, mortality concern when symptomatic. Suspect still mild-moderate based on clinical examination. Repeat echocardiogram with follow-up November 2023. Thank you, CONTACT INFORMATION: Surinder Dillon M.D. Cardiovascular Medicine Staff [facility] Code [id number] [facility] [place] [address] Referring Provider: BRAEDEN HERNANDEZ [[id number]] Allergies As of Date: 04/26/2023 Noted Allergy Reaction DOXYCYCLINE 03/22/2006 11 - Vomiting Date Reviewed: 04/26/2023 Reviewed by: iVoleta Call OCCA - Fully Assessed Reason for Visit: New Patient [172] Primary Visit Diagnosis:Nonrheumatic aortic valve stenosis [I35.0] Order(s):ECG COMPLETE [ECG01] Order #: [id number] ECHO [[id number]] Order #: [id number]: 1 FUTURE Prescriptions as of 04/26/2023 - amLODIPine (NORVASC) 2.5 mg tablet Take 2.5 mg by mouth twice daily. - lisinopril (ZESTRIL, PRINIVIL) 20 mg tablet Take 20 mg by mouth twice daily. - lovastatin 40 mg tablet Take 40 mg by mouth daily at bedtime. - pramipexole (MIRAPEX) 0.25 mg (more content not included)... Normal [facility] [id number] 04-26-2023 ECG01 Ventricular Rate : 7 7 BPM Atrial Rate : 77 BPM P-R Interval : 134 ms QRS Duration : 94 ms Q-T Interval : 368 ms QTC Calculation(Bazett) : 416 ms Calculated P [place] : 68 degrees Calculated R [place] : 81 degrees Calculated T [place] : 53 degrees NORMAL SINUS RHYTHM , AGE UNDETERMINED ABNORMAL ECG Confirmed by SHAUNA PRATT MD ([id number]) on 05/01/2023 4:37:20 PM NAME : CARO HECTOR PID : [id number] : 1945 Gender : Male Race : ORD : Procedure Date : Apr 26 2023 12:55:41 Edit Date : May 01 2023 16:37:46 Diagnosis: NORMAL SINUS RHYTHM , AGE UNDETERMINED ABNORMAL ECG Confirmed by SHAUNA PRATT MD ([id number]) on 05/01/2023 4:37:20 PM Test Reason : Location : 192 : AVCRD Overread By : SHAUNA PRATT MD Edited By : SHAUNA PRATT MD Referred By : BRAEDEN HERNANDEZ Acquired by : Sosa [facility] Pablito 02-02-2023 CNPN Telephone (CARDAV) KRUNALALTONSultana Hodges ([id number]) 1945 M Date Time Provider Department 02/02/23 DEVANG BARNES During your visit today, we recorded the following information about you: Andra Barnhart MA 02/02/2023 10:00 AM Signed Received notes and referral request from [facility] requesting for pt to establish with Dr. Barnes for Moderate Aortic Stenosis. Will route to scheduling. Sent to scanning. Jackie Doran 02/02/2023 1:01 PM Signed Attempted to reach patient to schedule. Mail box was full and patient does not have my chart. Grace Eric 02/08/2023 9:50 AM Signed Rozina from [facility] physicians calling to ensure that appt has been scheduled with Dr. Barnes for Moderate Aortic Stenosis. Please reach out to , Wendy to schedule and notify [facility] at [phone] with appt date Krista Franklin 02/08/2023 11:29 AM Signed Left message for Caro to call and schedule appt Allergies As of Date: 02/02/2023 Noted Allergy Reaction DOXYCYCLINE 03/22/2006 11 - Vomiting Date Reviewed: 12/09/2020 Reviewed by: Bernardo Langford MD - Fully Assessed Reason for Visit: Appointment [186] Prescriptions as of 02/08/2023 - amLODIPine (NORVASC) 2.5 mg tablet Take 2.5 mg by mouth twice daily. - lisinopril (ZESTRIL, PRINIVIL) 20 mg tablet Take 20 mg by mouth twice daily. - lovastatin 40 mg tablet Take 40 mg by mouth daily at bedtime. - pramipexole (MIRAPEX) 0.25 mg tablet TAKE 1 AND 1 2 (ONE HALF) TABLET BY MOUTH ONCE DAILY IN THE EVENING - CELEBREX 200 MG CAP Take one(1) capsule daily. 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] GENERAL OSTEOARTHROSIS [M15.9] UNCERTAIN BEHAV NEOPL SOFT TISSUE [D48.19] Encounter Status:Closed by ANDRA BARNHART on 02/02/23 [facility] P[facility]ito 01-15-2023 CNPN Telephone (REFPHY) CARO HECTOR ([id number]) 1945 M Date Time Provider Department 01/15/23 NO PCP REFPHY During your visit today, we recorded the following information about you: Swati Doss 01/15/2023 11:45 AM Signed Patient: Caro Hector Date of : 1945 Patient phone number: [phone] Referring Provider for the encounter: Braeden Hernandez Requesting Provider: Devang Barnes Reason for requesting visit (RFV/signs and symptoms/diagnosis): Moderate aortic stenosis, non rheumatic aortic valve stenosis Person calling: self Return call to: self Medical Records/Insurance Card scanned into [facility]: Yes Comments: n/a Larry Snowden 01/20/2023 1:06 PM Signed 1st attempt, tried to reach pt via phone, pt did not answer, vm box full. No Laverne Margaret Denney 01/24/2023 10:15 AM Signed Attempted to reach patient. Voicemail not set up. Unable to leave message for patient requesting a call back to office. No MyChart. Allergies As of Date: 01/15/2023 Noted Allergy Reaction DOXYCYCLINE 03/22/2006 11 - Vomiting Date Reviewed: 12/09/2020 Reviewed by: Bernardo Langford MD - Fully Assessed Reason for Visit: External Referrals/resources [909] Prescriptions as of 01/24/2023 - amLODIPine (NORVASC) 2.5 mg tablet Take 2.5 mg by mouth twice daily. - lisinopril (ZESTRIL, PRINIVIL) 20 mg tablet Take 20 mg by mouth twice daily. - lovastatin 40 mg tablet Take 40 mg by mouth daily at bedtime. - pramipexole (MIRAPEX) 0.25 mg tablet TAKE 1 AND 1 2 (ONE HALF) TABLET BY MOUTH ONCE DAILY IN THE EVENING - CELEBREX 200 MG CAP Take one(1) capsule daily. 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 Insurance Correspondenceon 0 11-16-2022 Insurance Correspondence [id number] D:127 [facility] Physician Orderon 11-16-2022 Physician Order [id number]#1.00CD :127 [facility] CBC AUTO DIFFon 12-08-2021 BASO # 0.1 103/ul Normal 0.0-0.1 [facility] Comment on above: Performed By: #### C BC #### [facility] [address] [address] [address] Jonh Bolivar Basophils/100 WBC (Bld) 1.2 % Normal 0.2-2.0 [facility] Comment on above: Performed By: #### C BC #### [facility] [address] [place] [address] Dr. Jonh Bolivar EO # 0.3 103/ul Normal 0.0-0.7 [facility] Comment on above: Performed By: #### C BC #### [facility] [address] [place] [address] Dr. Jonh Bolivar Eosinophils/100 WBC (Bld) 5.0 % Normal 0.9-7.0 [facility] Comment on above: Performed By: #### C BC #### [facility] [address] [place] [address] Dr. Jonh Bolivar Erythrocyte distribution width (RBC) [Ratio] 13.6 % Normal 11.0-15.0 [facility] Comment on above: Performed By: #### C BC #### [facility] [address] [place] [address] Dr. Jonh Bolivar Hematocrit (Bld) [Volume fraction] 46.7 % Normal 42.0-54.0 [facility] Comment on above: Performed By: #### C BC #### [facility] [address] [place] [address] Dr. Jonh Bolivar Hemoglobin (Bld) [Mass/Vol] 15.2 g/dL Normal 14.0-18.0 [facility] Comment on above: Performed By: #### C BC #### [facility] [address] [place] [address] Dr. Jonh Bolivar IG # 0.02 10e3/ul Normal 0.00-0.03 [facility] Comment on above: Performed By: #### C BC #### [facility] [address] [place] [address] Dr. Jonh Bolivar IG % 0.3 % Normal 0.0-0.5 [facility] Comment on above: Performed By: #### C BC #### [facility] [address] [place] [address] Dr. Jonh Bolivar LYMPH # 1.5 103/ul Normal 1.2-3.8 [facility] Comment on above: Performed By: #### C BC #### [facility] [address] [place] [address] Dr. Jonh Bolivar Lymphocytes/100 WBC (Bld) 21.4 % Normal 20.5-60.0 [facility] Comment on above: Performed By: #### C BC #### [facility] [address] [place] [address] Dr. Jonh Bolivar MANUAL DIFF REQ NO Normal [facility] Comment on above: Performed By: #### C BC #### [facility] [address] [place] [address] Dr. Jonh Bolivar MCH (RBC) [Entitic mass] 29.1 pg Normal 25.9-34.0 [facility] Comment on above: Performed By: #### C BC #### [facility] [address] [place] [address] Dr. Jonh Bolivar MCHC (RBC) [Mass/Vol] 32.5 g/dL Normal 29.9-35.2 [facility] Comment on above: Performed By: #### C BC #### [facility] [address] [place] [address] Dr. Jonh Bolivar MCV (RBC) [Entitic vol] 89.5 fL Normal 80.0-94.0 [facility] Comment on above: Performed By: #### C BC #### [facility] [address] [place] [address] Dr. Jonh Bolivar MONO # 0.6 103/ul Normal 0.3-0.8 [facility] Comment on above: Performed By: #### C BC #### [facility] [address] [place] [address] Dr. Jonh Bolivar Monocytes/100 WBC (Bld) 8.6 % Normal 1.7-12.0 [facility] Comment on above: Performed By: #### C BC #### [facility] [address] [place] [address] Dr. Jonh Bolivar NEUT # 4.3 103/ul Normal 1.4-6.5 [facility] Comment on above: Performed By: #### C BC #### [facility] [address] [place] [address] Dr. Jonh Bolivar Neutrophils/100 WBC (Bld) 63.5 % Normal 43.0-75.0 [facility] Comment on above: Performed By: #### C BC #### [facility] [address] [place] [address] Dr. Jonh Bolivar Platelet mean volume (Bld) [Entitic vol] 10.2 fL Normal 9.5-13.5 [facility] Comment on above: Performed By: #### C BC #### [facility] [address] [place] [address] Dr. Jonh Bolivar PLT 242 103/ul Normal 150-450 [facility] Comment on above: Performed By: #### C BC #### [facility] [address] [place] [address] Dr. Jonh Bolivar RBC 5.22 106/ul Normal 4.70-6.10 [facility] Comment on above: Performed By: #### C BC #### [facility] [address] [place] [address] Dr. Jonh Bolivar WBC 6.8 103/ul Normal 4.0-11.0 [facility] Comment on above: Performed By: #### C BC #### [facility] [address] [place] [address] Dr. Jonh Bolivar LIPID PROFILEon 12-08-2021 CHOL-HDL RATIO NORM SEE BELOW Normal [place] Comment on above: Result Comment: 3.3 - 4.4 LOW RISK 4.4 - 7.1 AVERAGE RISK 7.1 - 11.0 MODERATE RISK >11.0 HIGH RISK Performed By: #### B MP, ALT, LIPID #### [facility] [address] [address] [address] Jonh Bolivar Cholesterol [Mass/Vol] 188 mg/dL Normal <=200 [facility] Comment on above: Performed By: #### B MP, ALT, LIPID #### [facility] [id number] Jonh Bolivar Cholesterol in HDL [Mass/Vol] 60 mg/dL Normal 40-60 [facility] Comment on above: Performed By: #### B MP, ALT, LIPID #### [facility] [address] [address] [address] Jonh Bolivar Cholesterol in LDL [Mass/Vol] 114.8 mg/dL Normal [facility] Comment on above: Performed By: #### B MP, ALT, LIPID #### [facility] [address] [address] [address] Jonh Bolivar Cholesterol.total/Ch olesterol in HDL [Mass ratio] 3.1 {ratio} Normal [facility] Comment on above: Performed By: #### B MP, ALT, LIPID #### [facility] [address] [address] [address] Jonh Bolivar HDL NORMAL > or = 60 mg/dl - LO W CARDIOVASCULAR RISK <40 mg/dl - HIGH CARDIOVASCULAR RISK Normal [facility] Comment on above: Performed By: #### B MP, ALT, LIPID #### [facility] [address] [address] [address] Jonh Bolivar LDL CALC NORMAL SEE BELOW Normal [facility] Comment on above: Result Comment: <100 mg/dl OPTIMAL 100 - 129 mg/dl NEAR OR ABOVE OPTIMAL 130 - 159 mg/dl BORDERLINE HIGH 160 - 189 mg/dl HIGH >190 mg/dl VERY HIGH Performed By: #### B MP, ALT, LIPID #### [facility] [address] [address] [address] Jonh Bolivar Triglyceride [Mass/Vol] 66 mg/dL Normal <=150 [facility] Comment on above: Performed By: #### B MP, ALT, LIPID #### [facility] [address] [address] [address] Jonh Bolivar VLDL CALC 13.2 mg/dL Normal [facility] Comment on above: Performed By: #### B MP, ALT, LIPID #### [facility] [address] [place] [address] Dr. Jonh Bolivar PROF CHEM 8 (BAS METB)on Anion gap [Moles/Vol] 10.8 mmol/L Normal [facility] Comment on above: Performed By: #### B MP, ALT, LIPID #### [facility] [address] [place] [address] Dr. Jonh Bolivar Calcium [Mass/Vol] 8.9 mg/dL Normal 8.5-10.1 [facility] Comment on above: Performed By: #### B MP, ALT, LIPID #### [facility] [address] [place] [address] Dr. Jonh Bolivar Chloride [Moles/Vol] 103 mmol/L Normal 98-107 [facility] Comment on above: Performed By: #### B MP, ALT, LIPID #### [facility] [address] [place] [address] Dr. Jonh Bolivar CO2 [Moles/Vol] 28.9 mmol/L Normal 21.0-32.[address] [facility] Comment on above: Performed By: #### B MP, ALT, LIPID #### [facility] [address] [place] [address] Dr. Jonh Bolivar Creatinine [Mass/Vol] 0.94 mg/dL Normal 0.70-1.30 [facility] Comment on above: Performed By: #### B MP, ALT, LIPID #### [facility] [address] [place] [address] Dr. Jonh Bolivar EGFR-AF HONDURAN >60 Normal >=[address] [facility] Comment on above: Performed By: #### B MP, ALT, LIPID #### [facility] [address] [place] [address] Dr. Jonh Bolivar EGFR-NON AF HONDURAN >60 Normal >=60 [facility] Comment on above: Performed By: #### B MP, ALT, LIPID #### [facility] [address] [place] [address] Dr. Jonh Bolivar Glucose [Mass/Vol] 125 mg/dL Critically high 74-106 T [facility] Comment on above: Performed By: #### B MP, ALT, LIPID #### [facility] [address] [place] [address] Dr. Jonh Bolivar Potassium [Moles/Vol] 4.7 mmol/L Normal 3.5-5.1 [facility] Comment on above: Performed By: #### B MP, ALT, LIPID #### [facility] [address] [place] [address] Dr. Jonh Bolivar Sodium [Moles/Vol] 138 mmol/L Normal 136-145 [facility] Comment on above: Performed By: #### B MP, ALT, LIPID #### [facility] [address] [place] [address] Dr. Jonh Bolivar Urea nitrogen [Mass/Vol] 16.0 mg/dL Normal 7.0-18.0 [facility] Comment on above: Performed By: #### B MP, ALT, LIPID #### [facility] [address] [place] [address] Dr. Jonh Bolivar Urea nitrogen/Creatinine [Mass ratio] 17.0 mg/mg Normal [facility] Comment on above: Performed By: #### B MP, ALT, LIPID #### [facility] [address] [place] [address] Dr[facility] ALT [Catalytic activity/Vol] 23 U/L Normal 16-63 [facility] Comment on above: Performed By: #### B MP, ALT, LIPID #### [facility] [address] [place] [address] Dr. Jonh Bolivar ECHOCARDIO M/2D COMPLETEon 0 10-13-2021 ECHOCARDIO M/2D COMPLETE Patient: CARO HECTOR Exam Date: 10/13/2021 : 1945 Gender:M Ordering : DR BRAEDEN HERNANDEZ D.O. Admission #: [id number] Family : Order #: [id number] CLICK HERE TO VIEW EXAM ECHOCARDIOGRAM REPORT PROCEDURE: CARDIO PULMONARY ECHOCARDIO M/2D COMP INDICATIONS: Nonrheumatic aortic valve stenosis, hypertension COMPARISON: None. DESCRIPTION: COMPLETE ECHOCARDIOGRAM Real-time transthoracic echocardiography with 2D, M-mode, spectral and color flow Doppler performed. QUALITY: Technical quality was good. 64 135# BP 134/82 HR 73 LEFT VENTRICLE: Normal chamber size. Proximal septal hypertrophy (sigmoid septum). Systolic function is at the lower limits of normal. LV EF: Left ventricular ejection fraction is at the lower limits of normal (50%). DIASTOLIC: Grade II diastolic dysfunction. ATRIAL SEPTUM: Visually appears intact. LEFT ATRIUM: Mild dilatation. RIGHT ATRIUM: Normal chamber size. RIGHT VENTRICLE: Normal chamber size. Normal right ventricular systolic function. TRICUSPID VALVE: Normal mobility and thickness. No stenosis with mild regurgitation. No evidence of pulmonary hypertension. RVSP 23 mmHg MITRAL VALVE: Mildly thickened with normal mobility. No evidence of mitral valve stenosis. Mild mitral regurgitation. AORTIC VALVE: Severely calcified aortic valve. Severely diminished mobility. The valve appears to be severely stenotic by 2D imaging. Doppler velocity suggest moderate to severe aortic valve stenosis. DVI 0.3 RENETTA. Trivial aortic regurgitation. AORTIC ROOT: Normal diameter and appearance. PULMONIC VALVE: Not well visualized. No stenosis. No regurgitation. PERICARDIUM: No evidence of pericardial effusion. IVC: Collapses with inspirations. PLEURA: CONCLUSION: 1. Left ventricular systolic function is at the lower limits of normal. LVEF is 50%. 2. Normal right ventricular systolic function. 3. Grade 2 diastolic dysfunction. 4. Severely calcified aortic valve with severely restricted mobility. There is at least moderate to severe aortic valve stenosis. 5. Mild mitral and tricuspid regurgitation. 6. Normal right-sided pressures. 7. If clinically indicated, further imaging by transesophageal echocardiogram would help characterize aortic valve stenosis better. Dictated by: Isaiah Marie M.D. on 10/13/2021 at 17:57 Approved by: Isaiah Marie M.D. on 10/13/2021 at 18:05 Normal [facility] Vital Signs Date Time Vital Sign Value Performing Clinician Facility 11-22-2023 14:50-0400 Body weight 61.2 kg Surinder Dillon MD Work Phone: [facility] 11-22-2023 14:50-0400 Diastolic blood pressure 60 mm[Hg] Surinder Dillon MD Work Phone: [facility] 11-22-2023 14:50-0400 Heart rate 60 /min Surinder Dillon MD Work Phone: [facility] 11-22-2023 14:50-0400 SaO2% (BldA) [Mass fraction] 98 % Surinder Dillon MD Work Phone: [facility] 11-22-2023 14:50-0400 Systolic blood pressure 146 mm[Hg] Surinder Dillon MD Work Phone: [facility] 08-22-2023 13:39-0400 Body height 162.56 cm [facility] 08-22-2023 13:39-0400 Body mass index (BMI) [Ratio] 23.1 kg/m2 [facility] 08-22-2023 13:39-0400 Body weight 61.29 kg [facility] 08-22-2023 13:39-0400 Diastolic blood pressure 71 mm[Hg] [facility] 08-22-2023 13:39-0400 Heart rate 85 /min [facility] 08-22-2023 13:39-0400 Respiratory rate 16 /min [facility] 08-22-2023 13:39-0400 Systolic blood pressure 148 mm[Hg] [facility] 06-14-2023 09:46-0400 Body height 162.56 cm [facility] 06-14-2023 09:46-0400 Body mass index (BMI) [Ratio] 23.9 kg/m2 [facility] 06-14-2023 09:46-0400 Body weight 63.21 kg [facility] 06-14-2023 09:46-0400 Diastolic blood pressure 75 mm[Hg] [facility] 06-14-2023 09:46-0400 Heart rate 80 /min [facility] 06-14-2023 09:46-0400 Respiratory rate 12 /min [facility] 06-14-2023 09:46-0400 Systolic blood pressure 167 mm[Hg] [facility] 04-26-2023 12:59-0500 Body weight 63.4 kg Surinder Dillon MD Work Phone: [facility] 04-26-2023 12:59-0500 Diastolic blood pressure 76 mm[Hg] Surinder Dillon MD Work Phone: [facility] 04-26-2023 12:59-0500 Heart rate 77 /min Surinder Dillon MD Work Phone: [facility] 04-26-2023 12:59-0500 Systolic blood pressure 160 mm[Hg] Surinder Dillon MD Work Phone: [facility] 01-04-2023 09:09-0400 Body height 162.56 cm Braeden Ball Other [employer] Other 12-13-2022 10:00-0400 Body height 162.56 cm Braeden Ball Other [employer] Other 12-13-2022 10:00-0400 Body mass index (BMI) [Ratio] 23.86 kg/m2 Braeden Ball Other [employer] Other 12-13-2022 10:00-0400 Body weight 63.05 kg Braeden Ball Other [employer] Other 12-13-2022 10:00-0400 Diastolic blood pressure 67 mm[Hg] Braeden Ball Other [employer] Other 12-13-2022 10:00-0400 Respiratory rate 12 /min Braeden Ball Other [employer] Other 12-13-2022 10:00-0400 Systolic blood pressure 134 mm[Hg] Braeden Ball Other [employer] Other 06-23-2022 11:00-0400 Body height 162.56 cm Braeden Ball Other [employer] Other 06-23-2022 11:00-0400 Body mass index (BMI) [Ratio] 24.51 kg/m2 [employer] Other [employer] Other 06-23-2022 11:00-0400 Body weight 64.77 kg [employer] Other [employer] Other 06-23-2022 11:00-0400 Diastolic blood pressure 78 mm[Hg] [employer] Other [employer] Other 06-23-2022 11:00-0400 Respiratory rate 12 /min [employer] Other [employer] Other 06-23-2022 11:00-0400 Systolic blood pressure 158 mm[Hg] [employer] Other [employer] Other Encounters Encounter Date Encounter Type Care Provider Facility Start: 12-02-[address] [facility] ity:[facility] Start: 12-02-2023 End: 12-02-2023 Subsequent hospital visit by physician Jose Mojica [facility] Comment on above: Nonrheumatic aortic valve stenosis [I35.0] Start: 12-01-2023 End: 12-01-2023 Telephone encounter Surinder Dillon MD Work Phone: Cardiology Comment on above: Fax over Records to PCP Start: 11-24-2023 End: 11-24-2023 ambulatory SURINDER DILLON Facility:[facility] Start: 11-22-2023 End: 11-22-2023 Patient encounter procedure Surinder Dillon MD Work Phone: Cardiology Comment on above: Nonrheumatic aortic valve stenosis (Primary Dx); Primary hypertension; Abnormal echocardiogram Start: 11-22-2023 End: 11-22-2023 ambulatory SURINDER DILLON Facility:[facility] Start: 08-22-2023 End: 08-22-2023 ambulatory [facility] Work Phone: Start: 08-22-2023 End: 08-22-2023 Patient encounter procedure [facility] Physician [facility] Work Phone: Start: 08-10-2023 Non-patient / Non-visit [facility] Physician [facility] Professional [employer] Work Phone: Start: 06-15-2023 Non-patient / Non-visit [facility] Physician [facility] Work Phone: Start: 06-14-2023 End: 06-14-2023 ambulatory [facility] Work Phone: Start: 06-14-2023 End: 06-14-2023 Patient encounter procedure [facility] Physician [facility] Work Phone: Start: 04-26-2023 End: 04-26-2023 ambulatory BRAEDEN HERNANDEZ Facility:[facility] Start: 04-26-2023 End: 04-26-2023 Patient encounter procedure Surinder Dillon MD Work Phone: Cardiology Comment on above: Nonrheumatic aortic valve stenosis (Primary Dx) Start: 02-14-2023 End: 02-14-2023 ambulatory Braeden Reyna Other [employer] Other Start: 02-14-2023 Telephone encounter Braeden Mattson Clinical Neuropsychologist Start: 02-02-2023 Telephone encounter Devang foreman MD Work Phone: Cardiology Comment on above: Appointment Start: 01-31-2023 End: 01-31-2023 ambulatory Braeden Hernandez Other [employer] Other Start: 01-31-2023 Telephone encounter Braeden Mattson [facility] Start: 01-15-2023 Telephone encounter No Pcp [facility] Ref erring Physician Comment on above: External Referrals/r esources Start: 01-10-2023 End: 01-10-2023 ambulatory Braeden Hernandez Other [employer] Other Start: 01-10-2023 Telephone encounter Braeden LIAO [facility] Start: 01-04-2023 End: 01-04-2023 ambulatory Braeden Hernandez Other [employer] Other Start: 01-04-2023 Telephone encounter Braeden LIAO [facility] Start: 12-13-2022 End: 12-13-2022 ambulatory Braeden Hernandez Other [employer] Other Start: 12-13-2022 Patient encounter procedure Braeden Hernandez [facility] Start: 12-13-2022 Telephone encounter Braeden LIAO [facility] Start: 12-03-2022 End: 12-03-2022 ambulatory Braeden Hernandez Other [employer] Other Start: 12-03-2022 Telephone encounter Braeden LIAO [facility] Start: 11-24-2022 End: 11-24-2022 ambulatory Braeden Hernandez Other [employer] Other Start: 11-24-2022 Telephone encounter Braeden LIAO [facility] Start: 11-22-2022 End: 11-23-2022 ambulatory Bill RUBY [facility] Start: 11-22-2022 End: 11-22-2022 Patient encounter procedure BRAEDEN HERNANDEZ [facility] Start: 11-09-2022 End: 11-09-2022 ambulatory Braeden Hernandez Other [employer] Other Start: 11-09-2022 Telephone encounter Braeden LIAO [facility] Start: 06-23-2022 End: 06-23-2022 ambulatory Braeden Hernandez Other [employer] Other Start: 06-23-2022 Office outpatient vi sit 15 minutes Braeden Hernandez [facility] Start: 05-03-2022 End: 05-03-2022 ambulatory Braeden Hernandez Other [employer] Other Start: 05-03-2022 Telephone encounter Braeden Reyna [facility] Start: 12-10-2021 Adult health examination Anthony Hernandez Other [employer] Other Start: 12-08-2021 End: 12-09-[address] BRAEDEN HERNANDEZ Facility:[facility] Start: 10-13-2021 End: 10-14-[address] BRAEDEN HERNANDEZ Facility:[facility] Start: 06-21-2017 End: 06-22-2017 Ambulatory DEFAULT PHYSICIAN Facility:[facility] Procedures Date Procedure Procedure Detail Performing Clinician Start: 12-02-2023 Rp loclzj carmen spect w/ct 1 area 1 day imaging Surinder Dillon MD Work Phone: Start: 12-08-[address] ARROYO IN [place] Comment on above: Performed By: #### P [facility] #### [facility] [address] [place] [address] Dr. Jonh Bolivar Start: 09-26-2018 Icapsular cataract x trj insj io lens prsth 1 stg BRAEDEN HERNANDEZ Start: 02-11-2015 Screening for malign ant neoplasm of colon Braeden Hernandez Other Start: 02-08-2014 Diabetes mellitus screening Braeden Hernandez Other Start: 02-08-2014 Hyperlipidemia screening Braeden Hernandez Other Start: 02-08-2014 Screening for malign ant neoplasm of prostate Braeden Hernandez Other Depression screening Linda Hernandez Other Screening for malign ant neoplasm of prostate Braeden Hernandez Other Tonsillectomy BRAEDEN HERNANDEZ Plan of Treatment Date Care Activity Detail Author Start: 06-14-2027 Urine microalbumin profile DTa P,Tdap,Td Vaccine (2 - Tdap) [facility] Start: 11-23-2026 Diabetes Screening Diabetes Screenin g [facility] Start: 08-13-2024 End: 08-13-2024 Patient encounter procedure Cardiology Comment on above: echo Schedule echocardiog tamara same day as f/up with me in ~ 9 months Start: 12-02-2023 End: 12-02-2023 Patient encounter procedure [facility] Comment on above: Weight 140 / Patient not Diabetic / Order in EPIC // DX: Nonrheumatic aortic valve stenosis [I35.0] Start: 11-24-2023 End: 11-24-2023 ambulatory 11/24/2023 8:30 AM EDT Results Only [facility] [address] [place] [address] Nonrheumatic aortic valve stenosis [I35.0] [facility] Comment on above: Nonrheumatic aortic valve stenosis [I35.0] Start: 11-22-2023 End: 02-21-2024 Basic metabolic 2000 panel - Serum or Plasma BASIC METABOLIC PANEL Lab Routine Nonrheumatic aortic valve stenosis Primary hypertension Abnormal echocardiogram Expected: 11/22/2023, Expires: 02/21/2024 [facility] Comment on above: Expected: 11/22/2023 , Expires: 02/21/2024 Start: 11-22-2023 End: 02-21-2024 IMMUNOFIXATION SCREEN, SERUM IMMUNOFIXATION SCREEN, SERUM Lab Routine Nonrheumatic aortic valve stenosis Primary hypertension Abnormal echocardiogram Expected: 11/22/2023, Expires: 02/21/2024 [facility] Comment on above: Expected: 11/22/2023 , Expires: 02/21/2024 Start: 11-22-2023 End: 02-21-2024 KAPPA/KIMBLE,FREE,SER KAPPA/KIMBLE,FREE,SER Lab Routine Nonrheumatic aortic valve stenosis Primary hypertension Abnormal echocardiogram Expected: 11/22/2023, Expires: 02/21/2024 [facility] Work Phone: Comment on above: Expected: 11/22/2023 , Expires: 02/21/2024 Start: 11-22-2023 End: 02-21-2024 Lipid 1996 panel - Serum or Plasma LIPID PANEL BASIC Lab Routine Nonrheumatic aortic valve stenosis Primary hypertension Expected: 11/22/2023, Expires: 02/21/2024 [facility] Comment on above: Expected: 11/22/2023 , Expires: 02/21/2024 Start: 11-22-2023 End: 02-21-2024 MONOCLONAL PROT UR W/INTERP MONOCLONAL PROT UR W/INTERP Lab Routine Nonrheumatic aortic valve stenosis Primary hypertension Abnormal echocardiogram Expected: 11/22/2023, Expires: 02/21/2024 [facility] Comment on above: Expected: 11/22/2023 , Expires: 02/21/2024 Start: 11-22-2023 End: 02-21-2024 Natriuretic peptide.B prohormone N-Terminal [Mass/volume] in Serum or Plasma NT PRO BNP Lab Routine Nonrheumatic aortic valve stenosis Primary hypertension Abnormal echocardiogram Expected: 11/22/2023, Expires: 02/21/2024 [facility] Comment on above: Expected: 11/22/2023 , Expires: 02/21/2024 Start: 11-22-2023 End: 02-21-2024 Protein/Creatinine [Mass Ratio] in Urine PROTEIN / CREATININE RATIO Lab Routine Nonrheumatic aortic valve stenosis Primary hypertension Abnormal echocardiogram Expected: 11/22/2023, Expires: 02/21/2024 [facility] Comment on above: Expected: 11/22/2023 , Expires: 02/21/2024 Start: 11-06-2023 Covid-19 Vaccine () Covid-19 Vaccine () [facility] Start: 11-06-2023 Covid-19 Vaccine () Covid-19 Vaccine () [facility] Start: 11-06-2023 Influenza vaccination Influenza Vacc ine (#1) [facility] Start: 03-07-2023 Advance Directive Discussion Advance Directive Discussion [facility] Start: 03-07-2023 Depression Assessment Depression Ass essment [facility] Start: 11-05-2022 Covid-19 Vaccine () Covid-19 Vaccine () [facility] Start: 11-05-2022 Covid-19 Vaccine () Covid-19 Vaccine () [facility] Start: 11-05-2022 Influenza vaccination Influenza Vacc ine (#1) [facility] Start: 07-15-2022 RSV Vaccine (1 - 1-d ose 75+ series) RSV Vaccine (1 - 1-dose 75+ series) [facility] Start: 03-07-2022 Advance Directive Discussion Advance Directive Discussion [facility] Start: 03-07-2022 Depression Assessment Depression Ass essment [facility] Start: 03-10-2009 Diabetes Screening Diabetes Screenin g [facility] Start: 2007 RSV Vaccine (1 - 1-d ose 60+ series) RSV Vaccine (1 - 1-dose 60+ series) [facility] Start: 07-15-1997 Shingrix Vaccine (1 of 2) Connell grix Vaccine (1 of 2) [facility] Start: 07-15-1992 Cologuard (FIT-DNA) Cologuard (FIT-D NA) [facility] Start: 07-15-1992 Colonoscopy Colonoscopy [facility] Start: 07-15-1992 Colorectal Cancer Screening Colorectal Cancer Screening [facility] Start: 07-15-[address] Colonography [facility] Start: 07-15-1992 Fecal Occult Blood Fecal Occult Bloo d [facility] Start: 07-15-1992 Screening for malign ant neoplasm of colon [facility] Start: 07-15-1992 Sigmoidoscopy Sigmoidoscopy [facility] Start: 07-15-1982 Lipid 1996 panel - S chelsy or Plasma Lipid Screening [facility] Start: 07-15-1982 Lipid panel Lipid Screening [facility] Start: 07-15-1966 Urine microalbumin profile DTa P,Tdap,Td Vaccine (1 - Tdap) [facility] Start: 07-15-1965 Anxiety Screening Anxiety Screening [facility] Start: 07-15-1965 Depression Screening Depression Scre ening [facility] Start: 07-15-1965 Hepatitis C Screening Hepatitis C [facility] Start: 07-15-1965 Hepatitis C screening Hepatitis C [facility] ECG COMPLETE ECG COMPLETE ECG Routine Nonrheumatic aortic valve stenosis Ordered: 04/26/2023 [facility] Work Phone: Comment on above: Ordered: 04/26/2023 End: 04-26-2024 Echocardiography ECHO Cardiology Routine Nonrheumatic aortic valve stenosis 1 Occurrences starting 04/26/2023 until 04/26/2024 [facility] Work Phone: Comment on above: 1 Occurrences starti ng 04/26/2023 until 04/26/2024 End: 11-21-2024 Echocardiography ECHO Cardiology Routine Nonrheumatic aortic valve stenosis Primary hypertension Abnormal echocardiogram 1 Occurrences starting 11/22/2023 until 11/21/2024 [facility] Comment on above: 1 Occurrences starti ng 11/22/2023 until 11/21/2024 End: 12-21-2024 SPECT Heart for infarct W Tc-99m PYP IV NM SPECT/CT CARDIAC AMYLOID Radiology Routine Nonrheumatic aortic valve stenosis Primary hypertension Abnormal echocardiogram 1 Occurrences starting 11/22/2023 until 12/21/2024 [facility] Comment on above: 1 Occurrences starti ng 11/22/2023 until 12/21/2024 XR Chest 2 Views [facility] Immunizations Immunization Date Immunization Notes Care Provider Fa susanne 12-13-2022 influenza virus vaccine, unspecified formulation [facility] 12-13-2022 influenza, high dose seasonal, preservative-free Braeden Hernandez Other [facility] [employer] Other 12-10-2021 influenza virus vaccine, split virus (incl. purified surface antigen) Braeden Hernandez Other [facility] [employer] Other 12-10-2021 influenza virus vaccine, unspecified formulation [facility] 12-01-2020 influenza virus vaccine, split virus (incl. purified surface antigen) Braeden Hernandez Other [facility] [employer] Other 12-01-2020 influenza virus vaccine, unspecified formulation [facility] 12-13-2019 influenza virus vaccine, split virus (incl. purified surface antigen) Braeden Hernandez Other [employer] [facility] [employer] Other 12-13-2019 influenza virus vaccine, unspecified formulation [facility] 12-27-2018 influenza virus vaccine, split virus (incl. purified surface antigen) Braeden Hernandez Other [facility] [employer] Other 12-27-2018 influenza virus vaccine, unspecified formulation [facility] 06-21-2018 pneumococcal polysaccharide vaccine, 23 valent Braeden Hernandez Other [facility] 12-21-2017 influenza virus vaccine, split virus (incl. purified surface antigen) Braeden Hernandez Other [employer] Other 12-21-2017 influenza virus vaccine, unspecified formulation No Pcp [facility] 06-13-2017 diphtheria, tetanus toxoids and acellular pertussis vaccine, unspecified formulation Braeden Hernandez Other [facility] 06-13-2017 pneumococcal conjuga te vaccine, 13 valent Braeden Hernandez Other [facility] Payers Date Payer Category Payer Unknown 2017 Medicare [id number]. [id number] 1959 Unknown [id number] 1945 Unknown [id number] 1945 Unknown [id number] 1945 Unknown [id number] Social History Date Type Detail Facility Start: 12-09-2020 End: 12-02-2023 Sex Assigned At [facility] Start: 11-14-2019 Tobacco smoking status Ex-smoker (fi nding) [facility] Start: 03-10-1960 End: 03-10-1965 History of tobacco use Current smoker [facility] Start: 03-10-1960 End: 03-10-1965 History of tobacco use Cigarette Smoker [facility] Start: 03-16-2006 End: 04-26-2023 Alcohol intake Current drinker of alcohol (finding) [facility] Start: 03-16-2006 End: 12-02-2023 Alcohol intake [facility] National Score (1-100), lower number is lower risk Not on file [facility] Start: 1945 Sex Assigned At Not on file [facility] Start: 04-26-2023 Alcohol Comment occ [facility] Start: 1945 Sex Assigned At Male F [facility] Clinical Notes 06-23-2022 to 12-02-2023 Susanne Gilbert, (R) - 12/02/2023 3:00 PM EDTTelephone Encounter - Deborah Meraz RN - 12/01/2023 3:05 PM EDTTelephone Encounter - Deborah Meraz RN - 12/01/2023 3:05 PM EDT Note Date & Type Note Facility 12-02-2023 History of Presen t illness Narrative RADIOLOGY SERVICE PROGRESS NOTE SERVICE DATE: 12/02/2023 SERVICE TIME: 12:21 PM PATIENT IDENTITY VERIFICATION COMPLETED USING TWO (2) STANDARD IDENTIFIERS: Name and Date of confirmed by patient verbally and Name and Date of confirmed by identification band FALL SCREENING: Has the patient had 2 falls in the last year or 1 fall with injury or currently using an Ambulatory Assistive Device (Walker, Cane, Wheelchair, Crutches, etc.)? No PATIENT GENDER DATA: .male ALLERGIES: Reviewed and unchanged MEDICATIONS REVIEWED: Yes PATIENT RELEVANT IMPLANT DATA REVIEWED: Not Applicable PATIENT PRESENTS WITH AN IMPLANTABLE OR ATTACHED SPA ASSOCIATE: No CREATININE: Creatinine Date Value Ref Range Status 11/24/2023 0.90 0.73 - 1.22 mg/dL Final 03/10/2006 0.9 0.7 - 1.4 mg/dL Final Estimated Glomerular Filtration Rate Date Value Ref Range Status 11/24/2023 89 >=60 mL/min/1.73m Final Comment: Estimated Glomerular Filtration Rate (eGFR) is calculated using the 2020 CKD-EPI creatinine equation. This equation utilizes serum creatinine, sex, and age as parameters. The creatinine assay has traceable calibration to isotope dilution-mass spectrometry. Refer to KDIGO guidelines for clinical interpretation. In patients with unstable renal function, e.g. those with acute kidney injury, the eGFR may not accurately reflect actual GFR. P.O.C.T. RESULTS: N/A December 02, [address] PERFORMED: No IV SITE: Ambulatory: A peripheral IV was started in the Left antecubital site with a Angio cath: 24 gauge. POST EXAM PIV STATUS: Discontinued PROCEDURE TYPE: NM INJECT: CARDIAC AMYLOID SPECT/CT. 22.6 mCi Tc99m HDP. No other medications given.. ADMINISTRATION TIME: 11:36 PATIENT DISCHARGED TO: Ambulatory patient, left [place] department area. A Diagnostic radioactive procedure has taken place, with no further precautions necessary other than routine body substance precautions. More information regarding radiation safety can be found using this link: [email or web address]%[email or web address] [email or web address] SIGNATURE: MARCELLA [place]) PATIENT NAME: Caro Hector DATE: December 02, 2023 TIME: 12:21 PM PAGER/CONTACT #: documented in this encounter [facility] 12-02-2023 Note HNO ID: [id number] Author: SUSANNE GILBERT RT (R) Service: Nuclear Medicine Author Type: Technologist Type: Progress Notes Filed: 12/02/2023 12:22 Note Text: RADIOLOGY SERVICE PROGRESS NOTE SERVICE DATE: 12/02/2023 SERVICE TIME: 12:21 PM PATIENT IDENTITY VERIFICATION COMPLETED USING TWO (2) STANDARD IDENTIFIERS: Name and Date of confirmed by patient verbally and Name and Date of confirmed by identification band FALL SCREENING: Has the patient had 2 falls in the last year or 1 fall with injury or currently using an Ambulatory Assistive Device (Walker, Cane, Wheelchair, Crutches, etc.)? No PATIENT GENDER DATA: .male ALLERGIES: Reviewed and unchanged MEDICATIONS REVIEWED: Yes PATIENT RELEVANT IMPLANT DATA REVIEWED: Not Applicable PATIENT PRESENTS WITH AN IMPLANTABLE OR ATTACHED SPA ASSOCIATE: No CREATININE: Creatinine Date Value Ref Range Status 11/24/2023 0.90 0.73 - 1.22 mg/dL Final 03/10/2006 0.9 0.7 - 1.4 mg/dL Final Estimated Glomerular Filtration Rate Date Value Ref Range Status 11/24/2023 89 >=60 mL/min/1.73m? Final Comment: Estimated Glomerular Filtration Rate (eGFR) is calculated using the 2020 CKD-EPI creatinine equation. This equation utilizes serum creatinine, sex, and age as parameters. The creatinine assay has traceable calibration to isotope dilution-mass spectrometry. Refer to KDIGO guidelines for clinical interpretation. In patients with unstable renal function, e.g. those with acute kidney injury, the eGFR may not accurately reflect actual GFR. P.O.C.T. RESULTS: N/A December 02, [address] PERFORMED: No IV SITE: Ambulatory: A peripheral IV was started in the Left antecubital site with a Angio cath: 24 gauge. POST EXAM PIV STATUS: Discontinued PROCEDURE TYPE: NM INJECT: CARDIAC AMYLOID SPECT/CT. 22.6 mCi Tc99m HDP. No other medications given.. ADMINISTRATION TIME: 11:36 PATIENT DISCHARGED TO: Ambulatory patient, left [place] department area. A Diagnostic radioactive procedure has taken place, with no further precautions necessary other than routine body substance precautions. More information regarding radiation safety can be found using this link: [email or web address]-% 20Diagnostic%20Nuclear%20Medic [email or web address] SIGNATURE: RT Bonita(R) PATIENT NAME: Caro Hector DATE: December 02, 2023 TIME: 12:21 PM PAGER/CONTACT #: [facility] 12-01-2023 Telephone encount er Note Printed and faxed to number provided. Confirmation received. [facility] 12-01-2023 Miscellaneous Notes Formattin g of this note might be different from the original. Printed and faxed to number provided. Confirmation received. Patient would like his records and testings from Dr Dillon faxed over to his PCP please fax to: [phone] Attn: Braeden Hernandez. Please send over. Patient has been identified by name and birthdate. Duration of symptoms: N/A Person calling: spouse: Hilaria Call patient at: on cell [phone] (cell) Was an appointment scheduled: No Closing statement: Results or non-symptom based questions: Thank you for calling [facility], your call will be returned within the next business day. Priscilla Denney documented in this encounter [facility] 12-01-2023 Telephone encount er Note Patient would like his records and testings from Dr Dillon faxed over to his PCP please fax to: [phone] Attn: Braeden Hernandez. Please send over. Patient has been identified by name and birthdate. Duration of symptoms: N/A Person calling: spouse: Hilaria Call patient at: on cell [phone] (cell) Was an appointment scheduled: No Closing statement: Results or non-symptom based questions: Thank you for calling [facility], your call will be returned within the next business day. Priscilla Denney [facility] 11-22-2023 History of Presen t illness Narrative Images from the original note were not included. [facility] [place] [facility] Department of Cardiovascular Medicine SECTION OF CARDIOLOGY OUTPATIENT VISIT DATE 11/22/2023 OUTPATIENT VISIT TYPE Established CHIEF COMPLAINT: CV HISTORY OF PRESENT ILLNESS: Mr. Hector is a pleasant 78 year old male here for cardiovascular follow-up. Initial consultation 04/26/2023. Symptom-adames, BP at home 112-132/DBP 58-72 No CP/dyspnea/leg swelling/major bleeding. CURRENT MEDICATIONS: amLODIPine (NORVASC) 2.5 mg tablet Take 2.5 mg by mouth twice daily. lisinopril (ZESTRIL, PRINIVIL) 20 mg tablet Take 20 mg by mouth twice daily. lovastatin 40 mg tablet Take 40 mg by mouth daily at bedtime. pramipexole (MIRAPEX) 0.25 mg tablet TAKE 1 & 1 2 (ONE HALF) TABLET BY MOUTH ONCE DAILY IN THE EVENING I have personally interviewed, confirmed and edited the above information if obtained by others. Physical Exam BP 146/60 (BP Site: Left Arm, BP Position: Sitting, BP Cuff Size: Regular Adult) Pulse 60 Wt 61.2 kg (134 lb 14.7 oz) SpO2 98% Gen: alert, no acute distress, with HEENT: normocephalic, atraumatic, no rinorrhea, no congestion, normal hearing, EOMI, no eye discharge Heart: 3/6 mid peaking systolic murmur, S1/S2+, regular rate and rhythm Lungs: no wheezing, no rales, symmetric expansion, nonlabored Abdomen: soft, nontender, nondistended Musculoskeletal: no edema, nontender Neurological: no focal deficits, alert, oriented Psychatric: cooperative, appropriate Pertinent Diagnostics/Labs/Data reviewed (ECGs and echo listed personally reviewed today or prior) and include: 04/26/23 ECG: NSR, cannot exclude septal infarct pattern; nonspecific ST changes 12/04/2022: LDL 110, HDL 75, TG 65 TTE 11/22/2023: LVEF ~65%, mild LVH, , G1DD, low-normal LA pressures, normal LA/RA size, 1+ AR, Moderate aortic stenosis: AV peak V 3.34m/s, AV mean 25mmHgm DVI 0.29, RENETTA 0.89cm2, relative regional strain 0.7 some apical sparring pattern TTE report only 11/22/2022: LVEF 60-65%, normal LA/RA size, normal RVSF; mod , mild AI, trileaflet AV - RENETTA 1.5cm2, Assessment & Plan Aortic Stenosis - mostly moderate aortic stenosis, RENETTA in severe range visually calcified Abnormal strain pattern Other: HTN, HLD, OA, minimal smoking in past as teenager, other Impression: New to me 04/26/2023: BP at home per their report; active lifestyle; continue lovastatin; discussed AV, suspect mild-moderate. 11/22/2023: BP at home better. Increase water hydration. Reviewed echocardiogram. Borderline apical sparring. Now on rosuvastatin lipids improved with Dr. Hernandez. Plan: Rosuvastatin 20mg every day , Lisinopril 20mg bid, Amlodipine 2.5mg bid -Re-eval aortic valve disorder in ~ 9 months -Tc-PYP scan and UPEP, KUN, FLC ordered today for amyloid work-up as well as Lp(a) and repeat lipids and BNP/BMP hemodynamics for -Echocardiogram ~ 9 months with follow-up Thank you, CONTACT INFORMATION: Surinder Dillon M.D. Cardiovascular Medicine Staff Jonathan Costa [facility] Mail Code [id number] [facility] [place] [address] documented in this encounter [facility] 11-22-2023 Note HNO ID: [id number] Author: SURINDER DILLON MD Service: ? Author Type: Physician Type: Progress Notes Filed: 11/22/2023 15:11 Note Text: [facility] [place] [facility] Department of Cardiovascular Medicine SECTION OF CARDIOLOGY OUTPATIENT VISIT DATE 11/22/2023 OUTPATIENT VISIT TYPE Established CHIEF COMPLAINT: CV HISTORY OF PRESENT ILLNESS: Mr. Hector is a pleasant 78 year old male here for cardiovascular follow-up. Initial consultation 04/26/2023. Symptom-adames, BP at home 112-132/DBP 58-72 No CP/dyspnea/leg swelling/major bleeding. CURRENT MEDICATIONS: amLODIPine (NORVASC) 2.5 mg tablet Take 2.5 mg by mouth twice daily. lisinopril (ZESTRIL, PRINIVIL) 20 mg tablet Take 20 mg by mouth twice daily. lovastatin 40 mg tablet Take 40 mg by mouth daily at bedtime. pramipexole (MIRAPEX) 0.25 mg tablet TAKE 1 AND 1 2 (ONE HALF) TABLET BY MOUTH ONCE DAILY IN THE EVENING I have personally interviewed, confirmed and edited the above information if obtained by others. Physical Exam BP 146/60 (BP Site: Left Arm, BP Position: Sitting, BP Cuff Size: Regular Adult) Pulse 60 Wt 61.2 kg (134 lb 14.7 oz) SpO2 98% Gen: alert, no acute distress, with HEENT: normocephalic, atraumatic, no rinorrhea, no congestion, normal hearing, EOMI, no eye discharge Heart: 6 mid peaking systolic murmur, S1/S2+, regular rate and rhythm Lungs: no wheezing, no rales, symmetric expansion, nonlabored Abdomen: soft, nontender, nondistended Musculoskeletal: no edema, nontender Neurological: no focal deficits, alert, oriented Psychatric: cooperative, appropriate Pertinent Diagnostics/Labs/Data reviewed (ECGs and echo listed personally reviewed today or prior) and include: 04/26/23 ECG: NSR, cannot exclude septal infarct pattern; nonspecific ST changes 12/04/2022: LDL 110, HDL 75, TG 65 TTE 11/22/2023: LVEF ~65%, mild LVH, , G1DD, low-normal LA pressures, normal LA/RA size, 1+ AR, Moderate aortic stenosis: AV peak V 3.34m/s, AV mean 25mmHgm DVI 0.29, RENETTA 0.89cm2, relative regional strain 0.7 some apical sparring pattern TTE report only 11/22/2022: LVEF 60-65%, normal LA/RA size, normal RVSF; mod , mild AI, trileaflet AV - RENETTA 1.5cm2, Assessment AND Plan Aortic Stenosis - mostly moderate aortic stenosis, RENETTA in severe range visually calcified Abnormal strain pattern Other: HTN, HLD, OA, minimal smoking in past as teenager, other Impression: New to me 04/26/2023: BP at home per their report; active lifestyle; continue lovastatin; discussed AV, suspect mild-moderate. 11/22/2023: BP at home better. Increase water hydration. Reviewed echocardiogram. Borderline apical sparring. Now on rosuvastatin lipids improved with Dr. Hernandez. Plan: Rosuvastatin 20mg every day , Lisinopril 20mg bid, Amlodipine 2.5mg bid -Re-eval aortic valve disorder in ~ 9 months -Tc-PYP scan and UPEP, KUN, FLC ordered today for amyloid work-up as well as Lp(a) and repeat lipids and BNP/BMP hemodynamics for -Echocardiogram ~ 9 months with follow-up Thank you, CONTACT INFORMATION: Surinder Dillon M.D. Cardiovascular Medicine Staff Jonathan Wilfrido [facility] Mail Code [id number] [facility] [place] [address] [facility] 04-26-2023 History of Presen t illness Narrative Images from the original note were not included. [facility] [facility] Department of Cardiovascular Medicine SECTION OF CARDIOLOGY OUTPATIENT VISIT DATE April 26, 2023 OUTPATIENT VISIT TYPE NEW CONSULTATION CHIEF COMPLAINT: CV HISTORY OF PRESENT ILLNESS: Mr. Hector is a pleasant 77 year old male here for cardiovascular evaluation. Symptom-adames, BP at home 110/60s. No CP/dyspnea/leg swelling/major bleeding. Staying active; staying hydrated. The following portions of the patient's history were reviewed and updated as appropriate, allergies, current medications, past medical, social, surgical, and family history and problem list. PAST MEDICAL HISTORY Diagnosis Date Generalized osteoarthrosis, unspecified site HTN (hypertension) Neoplasm of uncertain behavior of connective and other soft tissue Nonrheumatic aortic valve stenosis 04/25/2023 Sensorineural hearing loss, unspecified Sensorineural hearing loss PAST SURGICAL HISTORY Procedure Laterality Date LIPOMA (LARGE) Right arm TONSILLECTOMY PRIMARY/SECONDARY <AGE 14 Tonsillectomy FAMILY HISTORY Problem Relation Age of Onset Diabetes Mother Social History Tobacco Use Smoking status: Former Packs/day: 0.50 Years: 5.00 Additional pack years: 0.00 Total pack years: 2.50 Types: Cigarettes Quit date: 03/10/1965 Years since quittin.1 Vaping Use Vaping Use: Never used Substance Use Topics Alcohol use: Yes Comment: occ ALLERGIES Allergen Reactions Doxycycline Vomiting CURRENT MEDICATIONS: amLODIPine (NORVASC) 2.5 mg tablet Take 2.5 mg by mouth twice daily. lisinopril (ZESTRIL, PRINIVIL) 20 mg tablet Take 20 mg by mouth twice daily. lovastatin 40 mg tablet Take 40 mg by mouth daily at bedtime. pramipexole (MIRAPEX) 0.25 mg tablet TAKE 1 & 1 2 (ONE HALF) TABLET BY MOUTH ONCE DAILY IN THE EVENING CELEBREX 200 MG CAP Take one(1) capsule daily. (Patient not taking: Reported on 04/26/2023) I have personally interviewed, confirmed and edited the above information if obtained by others. Physical Exam BP 160/76 (BP Site: Left Arm, BP Position: Sitting, BP Cuff Size: Regular Adult) Pulse 77 Wt 63.4 kg (139 lb 12.4 oz) Gen: alert, no acute distress, with HEENT: normocephalic, atraumatic, no rinorrhea, no congestion, normal hearing, EOMI, no eye discharge Heart: 3/6 early peaking systolic murmur, S1/S2+, regular rate and rhythm Lungs: no wheezing, no rales, symmetric expansion, nonlabored Abdomen: soft, nontender, nondistended Musculoskeletal: no edema, nontender Neurological: no focal deficits, alert, oriented Psychatric: cooperative, appropriate Pertinent Diagnostics/Labs/Data reviewed (ECGs and echo listed personally reviewed today or prior) and include: 04/26/23 ECG: NSR, cannot exclude septal infarct pattern; nonspecific ST changes 12/04/2022: LDL 110, HDL 75, TG 65 TTE report only 11/22/2022: LVEF 60-65%, normal LA/RA size, normal RVSF; mod , mild AI, trileaflet AV - RENETTA 1.5cm2, Assessment & Plan Aortic Stenosis Other: HTN, HLD, OA, minimal smoking in past as teenager, other Impression/Plan: -BP at home better per their report. Continue to monitor. -Discussed continue active lifestyle, good water hydration -Continue Lovastatin (can consider adjustment if LDL not <100 next time), Lisinopril 20mg bid, Amlodipine 2.5mg bid -Discussed aortic valve morphology, disorders, surveillance, treatment options, progression, mortality concern when symptomatic. Suspect still mild-moderate based on clinical examination. Repeat echocardiogram with follow-up November 2023. Thank you, CONTACT INFORMATION: Surinder Dillon M.D. Cardiovascular Medicine Staff Jonathan Anna [facility] Mail Code [id number] [place] [place] [address] documented in this encounter [facility] 04-26-2023 Note HNO ID: [id number] Author: SURINDER DILLON MD Service: ? Author Type: Physician Type: Progress Notes Filed: 04/26/2023 13:29 Note Text: [facility] [place] [facility] Department of Cardiovascular Medicine SECTION OF CARDIOLOGY OUTPATIENT VISIT DATE April 26, 2023 OUTPATIENT VISIT TYPE NEW CONSULTATION CHIEF COMPLAINT: CV HISTORY OF PRESENT ILLNESS: Mr. Hector is a pleasant 77 year old male here for cardiovascular evaluation. Symptom-adames, BP at home 110/60s. No CP/dyspnea/leg swelling/major bleeding. Staying active; staying hydrated. The following portions of the patient's history were reviewed and updated as appropriate, allergies, current medications, past medical, social, surgical, and family history and problem list. PAST MEDICAL HISTORY Diagnosis Date Generalized osteoarthrosis, unspecified site HTN (hypertension) Neoplasm of uncertain behavior of connective and other soft tissue Nonrheumatic aortic valve stenosis 04/25/2023 Sensorineural hearing loss, unspecified Sensorineural hearing loss PAST SURGICAL HISTORY Procedure Laterality Date LIPOMA (LARGE) Right arm TONSILLECTOMY PRIMARY/SECONDARY Tonsillectomy FAMILY HISTORY Problem Relation Age of Onset Diabetes Mother Social History Tobacco Use Smoking status: Former Packs/day: 0.50 Years: 5.00 Additional pack years: 0.00 Total pack years: 2.50 Types: Cigarettes Quit date: 03/10/1965 Years since quittin.1 Vaping Use Vaping Use: Never used Substance Use Topics Alcohol use: Yes Comment: occ ALLERGIES Allergen Reactions Doxycycline Vomiting CURRENT MEDICATIONS: amLODIPine (NORVASC) 2.5 mg tablet Take 2.5 mg by mouth twice daily. lisinopril (ZESTRIL, PRINIVIL) 20 mg tablet Take 20 mg by mouth twice daily. lovastatin 40 mg tablet Take 40 mg by mouth daily at bedtime. pramipexole (MIRAPEX) 0.25 mg tablet TAKE 1 AND 1 2 (ONE HALF) TABLET BY MOUTH ONCE DAILY IN THE EVENING CELEBREX 200 MG CAP Take one(1) capsule daily. (Patient not taking: Reported on 04/26/2023) I have personally interviewed, confirmed and edited the above information if obtained by others. Physical Exam BP 160/76 (BP Site: Left Arm, BP Position: Sitting, BP Cuff Size: Regular Adult) Pulse 77 Wt 63.4 kg (139 lb 12.4 oz) Gen: alert, no acute distress, with HEENT: normocephalic, atraumatic, no rinorrhea, no congestion, normal hearing, EOMI, no eye discharge Heart: 3/6 early peaking systolic murmur, S1/S2+, regular rate and rhythm Lungs: no wheezing, no rales, symmetric expansion, nonlabored Abdomen: soft, nontender, nondistended Musculoskeletal: no edema, nontender Neurological: no focal deficits, alert, oriented Psychatric: cooperative, appropriate Pertinent Diagnostics/Labs/Data reviewed (ECGs and echo listed personally reviewed today or prior) and include: 04/26/23 ECG: NSR, cannot exclude septal infarct pattern; nonspecific ST changes 12/04/2022: LDL 110, HDL 75, TG 65 TTE report only 11/22/2022: LVEF 60-65%, normal LA/RA size, normal RVSF; mod , mild AI, trileaflet AV - RENETTA 1.5cm2, Assessment AND Plan Aortic Stenosis Other: HTN, HLD, OA, minimal smoking in past as teenager, other Impression/Plan: -BP at home better per their report. Continue to monitor. -Discussed continue active lifestyle, good water hydration -Continue Lovastatin (can consider adjustment if LDL not <100 next time), Lisinopril 20mg bid, Amlodipine 2.5mg bid -Discussed aortic valve morphology, disorders, surveillance, treatment options, progression, mortality concern when symptomatic. Suspect still mild-moderate based on clinical examination. Repeat echocardiogram with follow-up November 2023. Thank you, CONTACT INFORMATION: Surinder Dillon M.D. Cardiovascular Medicine Staff [id number] [place] [place] [address] [facility] 02-02-2023 Miscellaneous Notes Formattin g of this note might be different from the original. Attempted to reach patient to schedule. Mail box was full and patient does not have my chart. Received notes and referral request from [facility] requesting for pt to establish with Dr. Barnes for Moderate Aortic Stenosis. Will route to scheduling. Sent to scanning. documented in this encounter [facility] 01-20-2023 Miscellaneous Notes Formattin g of this note might be different from the original. 1st attempt, tried to reach pt via phone, pt did not answer, vm box full. No mc Patient: Caro Hector Date of : 1945 Patient phone number: [phone] Referring Provider for the encounter: Braeden Hernandez Requesting Provider: Devang Barnes Reason for requesting visit (RFV/signs and symptoms/diagnosis): Moderate aortic stenosis, non rheumatic aortic valve stenosis Person calling: self Return call to: self Medical Records/Insurance Card scanned into [facility] [employer] [facility]: Yes Comments: n/a documented in this encounter [facility] 12-13-2022 Evaluation note Encounter Date Diagnosis Assessment Notes Dec, Medicare annual wellness visit, subsequent (ICD-10 - Z00.00) Personalized health advice was given to the beneficiary including a written plan for screenings discussed and provided. Advanced care planning reviewed and/or information given as requested. Additional counseling was provided here today in regards to, [ ]. The above visit was performed by [ ], under direct supervision of [ ]. Document reviewed and amended by provider signed below. Dec, Nonrheumatic aortic (valve) stenosis (ICD-10 - I35.0) He is asymptomatic I reviewed the past 3 years of Echocardiogram - RENETTA, Velocities and Gradients reviewed - he has moderatae He understands importance of controlling BP I suggested becoming established w/ a Compliance Review Officer but he declined at this time Dec, Hypertension (ICD-10 - I10) This patient is instructed to consume a healthy, low-fat, low-salt diet. They are also encouraged to continue exercise to achieve/maintain a normal BMI. Dec, Hyperlipidemia type II (ICD-10 - E78.01) Instructed on diet and exercise with continued statin therapy.Discussed the beneficial effects of lowering cholesterol in reducing the risk for cerebrovascular and cardiovascular disease. Dec, IFG (impaired fasting glucose) (ICD-10 - R73.01) Healthy diet and exercise. Monitor A1C in 6mo Dec, Restless leg syndrome (ICD-10 - G25.81) Continue medical treatment Much improved, occasionally will take 1/2 in afternoon Dec, PLMD (periodic limb movement disorder) (ICD-10 - G47.61) Doesn't interfere w/ sleep, noticed by . Dec, Screening PSA (prostate specific antigen) (ICD-10 - Z12.5) Continue yearly PSA - his results are < 1 - mild BPH symptoms Dec, Screening for malignant neoplasm of colon declined (ICD-10 - Z53.20) [facility] Other 09-29-2023 Evaluation note* Encounter Date Diagnosis Assessment Notes Treatment Notes Treatment Clinical Notes Nov, Hypertension (ICD-10 - I10) Nov, Hyperlipidemia type II (ICD-10 - E78.01) Nov, Screening PSA (prostate specific antigen) (ICD-10 - Z12.5) Nov, High risk medication use (ICD-10 - Z79.899) [facility] Other 09-18-2023 NoteEchocardiology Procedure Exam Date/Time Accession # Ordering Dr. Charlton Transthoracic 11/22/2022 10:10 EDT [id number] BRAEDEN HERNANDEZ DO Complete CPT code [id number] Reason for Exam (Echo Transthoracic Complete) I35.0 Nonrheumatic aortic ([place]) [place] [address] Adult Echocardiogram Report Name: CARO HECTOR Study Date: 11/22/2022 09:11 AM BP: 171/82 mmHg Patient Location: [facility] HR: 66 : 1945 Gender: Male Height: 64 in Age: 77 yrs Ethnicity: [facility] Weight: 140 lb Reason For Study: I35.0 Nonrheumatic aortic (valve) stenosis BSA: 1.7 m2 History: Murmur, Aortic stenosis, HTN Ordering Physician: BRAEDEN HERNANDEZ Referring Physician: BRAEDEN HERNANDEZ Performed By: Maricarmen Reyes, RDCS Interpretation Summary No comparison study is available. Ejection Fraction = 60-65%. The left ventricular wall motion is normal. Diastolic dysfunction, Grade II (pseudonormalization pattern). Mild aortic regurgitation. Moderate valvular aortic stenosis. There is trace tricuspid regurgitation. Right ventricular systolic pressure is 27 mmHg. Procedure A complete two-dimensional transthoracic echocardiogram was performed (2D, M- mode, spectral and color flow Doppler). Study quality is good. I WMSI = 1.00 % Normal = 100 Segments Size X - Cannot 2 - 1-2 small Interpret 1 - Normal Hypokinetic 3 - Akinetic 4 - Dyskinetic3-5 moderate 5 - Aneurysmal 6-14 large 15-16 diffuse Left Ventricle Echocardiology Report The left ventricle is normal in size. There is normal left ventricular wall thickness. Ejection Fraction = 60-65%. The left ventricular wall motion is normal. Diastolic dysfunction, Grade II (pseudonormalization pattern). Left Atrium The left atrial size is normal. Right Atrium Right atrial size is normal. Right Ventricle The right ventricular systolic function is normal. Aortic Valve The aortic valve is trileaflet. Focal thickening with restricted cusp opening. Focal calcification. Mild aortic regurgitation. Moderate valvular aortic stenosis. Mitral Valve Mitral valve structure is normal. Tricuspid Valve Structurally normal tricuspid valve. There is trace tricuspid regurgitation. Right ventricular systolic pressure is 27 mmHg. Pulmonic Valve The pulmonic valve is normal. Arteries The aortic root is normal in size. Venous The inferior vena cava is normal in size, and collapses normally with respiration. Effusion There is no pericardial effusion. MMode/2D Measurements & Calculations RVDd: 2.8 cm LVIDd: 4.4 cm FS: 59.1 % Ao root diam: 3.0 cm IVSd: 0.83 cm LVIDs: 1.8 cm EDV(Teich): 87.3 ml Ao root area: 7.0 cm2 LVPWd: 0.92 cm ESV(Teich): 9.7 ml LA dimension: 3.8 cm EF(Teich): 88.9 % asc Aorta Diam: 3.1 cm LVOT diam: 2.3 cm LVLd ap4: 7.8 cm EDV(MOD-sp2): 61.0 ml LVOT area: 4.2 cm2 EDV(MOD-sp4): 63.0 ml ESV(MOD-sp2): 23.5 ml LVLs ap4: 6.2 cm EF(MOD-sp2): 61.5 % ESV(MOD-sp4): 22.2 ml EF(MOD-sp4): 64.8 % SV(MOD-sp4): 40.8 ml TAPSE: 2.2 cm Ao Sinus of Valsalva: 3.2 cm Ao Sinotubular Junction: 2.4 cm Echocardiology Report IVC Diam: 1.8 cm RVIDd/LVIDd: 0.64 EF (MOD-bp): 63.1 % LA Vol Index: 29.2 ml/m2 Doppler Measurements & Calculations MV E max louie: 82.7 cm/sec MV dec time: 0.19 sec Ao V2 max: 299.2 cm/sec LV V1 max P.5 mmHg MV A max louie: 90.7 cm/sec Ao max P.8 mmHg LV V1 mean P.0 mmHg MV E/A: 0.91 Ao V2 mean: 203.6 cm/sec LV V1 max: 106.2 cm/sec Lat Peak E' Louie: 7.6 cm/sec Ao mean P.4 mmHg LV V1 mean: 84.1 cm/sec E/E' Lat: 10.9 Ao V2 VTI: 77.0 cm LV V1 VTI: 25.8 cm Med Peak E' Louie: 7.5 cm/sec E/E' Med: 11.0 RENETTA(I,D): 1.4 cm2 RENETTA(V,D): 1.5 cm2 SV(LVOT): 109.0 ml TR max louie: 246.1 cm/sec RAP systole: 3.0 mmHg AV VR: 0.35 TR max P.2 mmHg RENETTA(VTI)/BSA_phl: 0.82 RVSP(TR): 27.2 mmHg FINAL REPORT Dictated: 11/22/2022 9:11 am Bill RUBY MD Signed (Electronic Signature): 11/22/2022 12:41 pm Signed by: Bill RUBY MD Transcribed by: SONAL Technologist: [facility]09-05-2023 Evaluation note* Encounter Date Diagnosis Assessment Notes Treatment Notes Treatment Clinical Notes Nov, Nonrheumatic aortic (valve) stenosis (ICD-10 - I35.0) [facility] Other 04-19-2023 Evaluation note* Encounter Date Diagnosis Assessment Notes Treatment Notes Treatment Clinical Notes Jun, Hypertension (ICD-10 - I10) This patient is instructed to consume a healthy, low-fat, low-salt diet. They are also encouraged to continue exercise to achieve/maintain a normal BMI. - continue to monitor at home Jun, Nonrheumatic aortic (valve) stenosis (ICD-10 - I35.0) Denies CP, syncope or tachycardia Echocardiogram due in October w/ plans for Cardiology referral Jun, Dental abscess (ICD-10 - K04.7) Planning extraction of entire mouth [facility] [facility] Other Evaluation + Plan note No data available for this section [facility] note[facility] InformationNort [employer] Other Evaluation note* Diagnosis Nonrheumatic aortic valve stenosis- Primary Aortic valve disorders [facility] Diagnosis Onset Date Resolution Status Aortic stenosis acute Elevated cholesterol acute Hypertension acute IFG (impaired fasting glucose) acute RLS (restless legs syndrome) acute [facility] Work Phone: Evaluation note* Diagnosis Onset Date Resolution Status Aortic stenosis acute Elevated cholesterol acute Hypertension acute IFG (impaired fasting glucose) acute RLS (restless legs syndrome) acute Cough acute Wheezing on exhalation acute Acute bronchitis due to other specified organisms noneactive [facility] Work Phone: Evaluation note* Diagnosis Nonrheumatic aortic valve stenosis- Primary Aortic valve disorders Primary hypertension Unspecified essential hypertension Abnormal echocardiogram Nonspecific (abnormal) findings on radiological and other examination of other intrathoracic organs [facility] Diagnosis Nonrheumatic aortic valve stenosis Aortic valve disorders Primary hypertension Unspecified essential hypertension Abnormal echocardiogram Nonspecific (abnormal) findings on radiological and other examination of other intrathoracic organs documented in this encounter [facility] general Narrative - Reported* Type Description Date Medical History IFG (impaired fasting glucose) Medical History Restless leg syndrome Medical History Erectile dysfunction due to rubio rial insufficiency Medical History Nonrheumatic aortic (valve) sten osis Medical History Hypertension Medical History Peyronie disease Medical History Hyperlipidemia type II Surgical History LIPOMA EXCISED 2013 Hospitalization History SEE SURGICAL HX [facility] Other Hospital Discharge instructions No data available for this section [facility] No data available for this section [facility] (n[facility] Outpatient Procedure (Routine) - Authorized Specialty Diagnoses / Procedures Referred By Anna Marie t Referred To Contact [facility] Diagnoses Nonrheumatic aortic valve stenosis Procedures ECHO ECHO TTHRC R-T 2D W/WOM-MODE COMPL SPEC&[place] [address] [place] [address] [address] Referral ID Status Reason Start Date Expiration Date Visits Requested Visits Authorized [id number] Authorized Auto-Generat ed Referral 04/26/2023 04/25/2024 1 1 * Outpatient Procedure (Routine) - Pending Review Specialty Diagnoses / Procedures [facility]erred To Contact [facility] Diagnoses Nonrheumatic aortic valve stenosis Procedures ECG COMPLETE ECG ROUTINE ECG W/LEAST 12 LDS W/I&R Surinder Dillon [place] [id number] [place] [id number] [address] Referral ID Status Reason Start Date Expiration Date Visits Requested Visits Authorized [id number] Pending Review Auto-Generat ed Referral 04/26/2023 04/25/2024 1 1 [facility] for referral (narrative)* Outpatient Procedure (Routine) - Authorized Specialty Diagnoses / Procedures [facility] To Contact [facility] Diagnoses Nonrheumatic aortic valve stenosis Primary hypertension Abnormal echocardiogram Procedures ECHO ECHO TTHRC R-T 2D W/WOM-MODE COMPL SPEC&COLR D Surinder Dillon [place] [id number] [place] [id number] [facility] [address] [place] [address] Referral ID Status Reason Start Date Expiration Date Visits Requested Visits Authorized [id number] Authorized Auto-Generat ed Referral 11/22/2023 11/21/2024 1 1 * Diagnostic Procedure Only (Routine) - Authorized Specialty Diagnoses / Procedures Referred By Anna Marie t Referred To Contact [facility] Diagnoses Nonrheumatic aortic valve stenosis Primary hypertension Abnormal echocardiogram Procedures NM SPECT/CT CARDIAC AMYLOID RP LOCLZJ CARMEN SPECT W/CT 1 AREA 1 DAY IMAGING Surinder Dillon [place] [id number] [place] [id number] [facility] [address] [place] [address] Referral ID Status Reason Start Date Expiration Date Visits Requested Visits Authorized [id number] Authorized Auto-Generat ed Referral 11/22/2023 12/21/2024 2 2 [facility] for referral (narrative)* Diagnostic Procedure Only (Routine) - Closed Specialty Diagnoses / Procedures Referred By Anna Marie noel Referred To Contact [facility] Diagnoses Nonrheumatic aortic valve stenosis Primary hypertension Abnormal echocardiogram Procedures NM SPECT/CT CARDIAC AMYLOID RP LOCLZJ CARMEN SPECT W/CT 1 AREA 1 DAY IMAGING Surinder Dillon [place] [id number] [place] [address] [facility] [address] [place] [id number] Referral ID Status Reason Start Date Expiration Date V isits Requested Visits Authorized [id number] Closed Auto-Generate d Referral 11/22/2023 12/21/2024 2 2 [facility] for visit Narrative* Diagnostic Procedure Only (Routine) - Closed Specialty Diagnoses / Procedures Referred By Contac t Referred To Contact [facility]AG[facility] Diagnoses Nonrheumatic aortic valve stenosis Primary hypertension Abnormal echocardiogram Procedures NM SPECT/CT CARDIAC AMYLOID RP LOCLZJ CARMEN SPECT W/CT 1 AREA [place] [address] [place] [address] [facility] [address] [place] [address] Referral ID Status Reason Start Date Expiration Date V isits Requested Visits Authorized [id number] Closed Auto-Generate d Referral 11/22/2023 12/21/2024 2 2 [facility] Summary Purpose Family History No Family History Records FoundNo Family History Records FoundNo Family History Records FoundNo Family History Records FoundNo Family History Records Found Advance Directives Advance Directive Response Recorded Date/ Time Advance Directives No March 30, 2023 12:58pm Chief Complaint and Reason for Visit Chief Complaint 6 month follow up Reason for Visit Aortic stenosis Elevated cholesterol Hypertension IFG (impaired fasting glucose) RLS (restless legs syndrome) Chief Complaint 6 month follow up Amb Documentation cough Reason for Visit Aortic stenosis Elevated cholesterol Hypertension IFG (impaired fasting glucose) RLS (restless legs syndrome) Cough Wheezing on exhalation Acute bronchitis due to other specified organisms Additional Source Comments (unrecognized sect ion and content) No Status Records FoundNo Status Records FoundNo Status Records FoundNo Status Records FoundNo Status Records Found INFORMATION SOURCE (unrecogn ized section and content) DATE CREATED AUTHOR 08/25/2017 [facility] DATE CREATED AUTHOR AUTHOR'S ORGANIZ ATION 12/11/2021 [facility] DATE CREATED AUTHOR AUTHOR'S ORGANIZ ATION 11/23/2022 [facility] DATE CREATED AUTHOR AUTHOR'S ORGANIZ ATION 12/03/2023 [facility] DATE CREATED AUTHOR AUTHOR'S ORGANIZ ATION 12/03/2023 [facility] REASON FOR VISIT (unrecogniz ed section and content) Reason Comments External Referrals/resources Reason Comments Appointment Reason Comments New Patient Reason Comments Established Patient Reason Comments Fax over Records to PCP Patient Care team informatio n (unrecognized section and content) Spine Specialist Relationship Specialty Start Date End Date Braeden Hernandez DO PCP General 02/15/06 Spine Specialist Relationship Specialty Start Date End Date Braeden Hernandez DO PCP General 02/15/06 Team Status: Active Member Role Status Dates Braeden Hernandez DO Primary Care Provider Active Team Status: Inactive Member Role Status Dates Braeden Reyna DO Primary Care Provide r, Attending Provider Active Start: June 14, 2023 End: June 14, 2023 Team Status: Active Member Role Status Dates Braeden Hernandez DO Primary Care Provider Active Start: June 15, 2023 DAKOTA Atkinson Attending Provider Active St art: June 15, 2023 Team Status: Active Member Role Status Dates Braeden Reyna DO Primary Care Provide r, Attending Provider Active Start: August 10, 2023 Team Status: Inactive Member Role Status Dates Braeden Reyna DO Primary Care Provide r, Attending Provider Active Start: August 22, 2023 End: August 22, 2023 Spine Specialist Relationship Specialty Start Date End Date Braeden Hernandez [facility] General 02/15/06 Spine Specialist Relationship Specialty Start Date End Date Braeden Hernandez [facility] General 02/15/06 Spine Specialist Relationship Specialty Start Date End Date Braeden Hernandez [facility] General 02/15/06 Spine Specialist Relationship Specialty Start Date End Date Braeden Hernandez [facility] General 02/15/06 Source Comments (unrecognize d section and content) In the event this informatio n is protected by the Federal Confidentiality of Alcohol and Drug Abuse Patient Records regulations: The Federal rules restrict any use of the information to criminally investigate or prosecute any alcohol or drug abuse patient.[facility] the event this information is protected by the Federal Confidentiality of Alcohol and Drug Abuse Patient Records regulations: The Federal rules restrict any use of the information to criminally investigate or prosecute any alcohol or drug abuse patient.[facility] the event this information is protected by the Federal Confidentiality of Alcohol and Drug Abuse Patient Records regulations: The Federal rules restrict any use of the information to criminally investigate or prosecute any alcohol or drug abuse patient.[facility] the event this information is protected by the Federal Confidentiality of Alcohol and Drug Abuse Patient Records regulations: The Federal rules restrict any use of the information to criminally investigate or prosecute any alcohol or drug abuse patient.[facility] the event this information is protected by the Federal Confidentiality of Alcohol and Drug Abuse Patient Records regulations: The Federal rules restrict any use of the information to criminally investigate or prosecute any alcohol or drug abuse patient.[facility] the event this information is protected by the Federal Confidentiality of Alcohol and Drug Abuse Patient Records regulations: The Federal rules restrict any use of the information to criminally investigate or prosecute any alcohol or drug abuse patient.[facility] the event this information is protected by the Federal Confidentiality of Alcohol and Drug Abuse Patient Records regulations: The Federal rules restrict any use of the information to criminally investigate or prosecute any alcohol or drug abuse patient.[facility] Goals (unrecognized section and content) Goals may be documented in a n alternate section FOR RECORDS PERTAINING TO PATIENTS WHO ARE OR HAVE BEEN ENROLLED IN A CHEMICAL DEPENDENCY/SUBSTANCEABUSE PROGRAM, SOME INFORMATION MAY BE OMITTED. This clinical summary was aggregated from multiple sources. Caution should be exercised in using it in the provision of clinical care. This summary normalizes information from multiple sources, and as a consequence, information in this document may materially change the coding, format and clinical context of patient data. In addition, data may be omitted in some cases. CLINICAL DECISIONS SHOULD BE BASED ON THE PRIMARY CLINICAL RECORDS. [facility]. provides no warranty or guarantee of the accuracy or completeness of information in this document.
[2024-01-19 09:46] LABS: Alanine Aminotransferase 25 U/L (16-63); Albumin Globulin Ratio 1.1; Albumin Level 3.4 g/dL (3.4-5.0); Alkaline Phosphatase 75 U/L (46-116); Anion Gap 13.4; Aspartate Amino Transferase 13 U/L (15-37); Bilirubin Total 0.9 mg/dL (0.2-1.0); Calcium 8.4 mg/dL (8.5-10.1); Chloride 107 mmol/L (98-107); Chol HDL Ratio 2.3; Cholesterol 149 mg/dL (<=200); Estimated GFR (African America >60 (>=60 mL/min/1.73m^2); Estimated GFR (Non-African Ame >60 (>=60 mL/min/1.73m^2); Globulin 3.2 g/dL; Glucose 119 mg/dL (74-106); HDL Cholesterol 64 mg/dL (40-60); Potassium 4.4 mmol/L (3.5-5.1); Sodium 143 mmol/L (136-145); Total Protein 6.6 g/dL (6.4-8.2); Triglycerides 67 mg/dL (<=150); VLDL CHOLESTEROL 13.4 mg/dL
[2024-01-19 10:19] LABS: Prostate Specific Antigen Scrn 0.24 ng/mL (<=4.00)
[2024-01-19 10:48] LABS: Estimated Average Glucose 120 mg/dL; Glycohemoglobin A1C 5.8 % (4.5-6.2)
== END 2024-01-19 09:06 | disposition home or self-care (01) ==
LOC: LAB 09:07
PROVIDERS: PCP Internal Medicine; Visit Provider Internal Medicine
DX: R73.01 Impaired fasting glucose (principal); I10 Essential (primary) hypertension; E78.00 Pure hypercholesterolemia, unspecified; I35.0 Nonrheumatic aortic (valve) stenosis; Z12.5 Encounter for screening for malignant neoplasm of prostate
CPT/HCPCS: 36415; 80053; 80061; 83036; 85025; G0103

== ENCOUNTER 2025-01-22 07:49 | Outpatient (OUT) | payer MEDICARE, SELFPAY ==
--- OUTSIDE RECORDS SUMMARY | 2025-01-22 07:55 | XMS_ITS | CCD ---
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 Name Role Phone PHYSICIAN, DEFAULT Unavailable Unavailable PHYSICIAN, DEFAULT Unavailable Unavailable REYNA, DR RESTREPO Primary Care Unavailable REYNA, DR RESTREPO Admitting Unavailable BALL, DR RESTREPO Attending Unavailable BALL, DR RESTREPO Consulting Unavailable BALL, DR RESTREPO Admitting Unavailable BALL, DR RESTREPO Attending Unavailable BALL, DR RESTREPO Consulting Unavailable BALL, DR RESTREPO Primary Care Unavailable Braeden Orellana Unavailable BRAEDEN ORELLANA Primary Care Physician Bill RUBY Consulting Unavailable BRAEDEN ORELLANA Admitting Unavailable REYNA, BRAEDEN Attending Unavailable REYNA, BRAEDEN Referring Unavailable Bill RUBY Consulting Unavailable Bill RUBY Consulting Unavailable Braeden Orellana DO Primary Care Provider Braeden Orellana DO Primary Care Provider PATTISAPU, SURINDER K Referring Unavailable BRAEDEN ORELLANA Primary Care Unavailable PATTISAPU, SURINDER K Referring Unavailable BRAEDEN ORELLANA Primary Care Unavailable Braeden Orellana MD Primary Care Provider Topher Sullivan OD Unavailable NELY NELSON Attending Unavailable PATTISAPU, SURINDER Attending Unavailable PATTISAPU, SURINDER Referring Unavailable BRAEDEN ORELLANA Primary Care Unavailable PATTISAPU, SURINDER Referring Unavailable BRAEDEN ORELLANA Primary Care Unavailable PATTISAPU, SURINDER Attending Unavailable PATTISAPU, SURINDER Referring Unavailable BRAEDEN ORELLANA Primary Care Unavailable PATTISAPU, SURINDER Referring Unavailable BRAEDEN ORELLANA E Primary Care Unavailable PATTISAPU, SURINDER Referring Unavailable BRAEDEN ORELLANA E Primary Care Unavailable Allergies Allergy ClassificationReported Allergen(s)Allergy TypeDate of OnsetReaction(s) Facility (3 sources)patient allergy list reviewed by nurse or physiciaPropensity to adverse apieoabyj96-38-7552Zhozkgf:Washio Other (12 sources)Doxycycline; Translations: [DOXYCYCLINE]Drug Cacyovc71-34-5228 Vomiting, GI intolerancePremier Health [facility] Medications Current Medications MedicationDrug Class(es)DatesSig (Normalized)Sig (Original)amLODIPine 2.5 mg oral tablet (15 sources)Dihydropyridine Calcium Channel BlockerStart: 15-80-1406pfuo 1 tablet by mouth twice dailyAmlodipine 2.5 mg tablet Active 0 .ROUTE .COMPLEX 180 December 19, 2023 5:51pm Take 1 tablet by mouth twice dailyStart: 11-11-2020 End: 53-95-0621nhik 1 tablet by mouth twice dailyAmlodipine 2.5 mg tablet Discontinued 2.5 MG PO Twice daily December 19, 2023 12:00am December 19, 2023 5:51pmStart: 10-11-2009mdsp 1 mg by mouth once dailyamLODIPine 2.5 mg Tab mg tab(s), Oral, Daily Start Date: 11/14/19 Status: OrderedComment on above:Take 2.5 mg by mouth twice daily.avanafil 100 mg oral tablet (1 source)Phosphodiesterase 5 InhibitorStart: 20-30-6587Seonogc 100 mg oral tablet 100 mg = 1 tab(s), Oral, As Directed, Take as needed 30 minutes before se xual activity, # 3 tab(s), Refills(s) 6, Pharmacy: [id number], 163, cm, 11/14/19 10:16:00 EDT, Height/Length Dosing, 63.5, kg, 11/14/19 10:16:00 EDT, Weight Dosing Start Date: 11/14/19 Status: OrderedCo Q-10 (1 source)Start: 33-61-4795mjlq 1 tablet by mouth once dailyCo Q-10 one tab, Oral, Daily, Prophylaxis Start Date: 09/25/18 Status: Ordereddoxepin hydrochloride 10 mg oral capsule (1 source)Tricyclic AntidepressantStart: 82-96-2406jwtn 1 capsule by mouth once daily at bedtimeDoxepin 10 mg capsule Active 10 MG PO Daily at bedtime 7 July 17, 2024 12:00amgabapentin 300 mg oral capsule (1 source)Anti-epileptic AgentStart: 76-47-7211wypp 1 capsule by mouth once daily at bedtimegabapentin (NEURONTIN) 300 mg capsule Take 300 mg by mouth daily at bedtime. 07/26/2024 Activeketorolac tromethamine 5 mg/ml ophthalmic solution (2 sources)Nonsteroidal Anti-inflammatory Drug, Cyclooxygenase InhibitorStart: 03-13-2024 End: 62-76-3489vuct 1 drop(s) into the eye(s) in the morningketorolac (Acular) 0.5 % ophthalmic solution Indications: Age-related nuclear cataract of right eye Administer 1 drop into affected eye(s) in the morning and 1 drop before bedtime. 5 mL 1 03/13/2024 04/12/2024 Activelisinopril 20 mg oral tablet (20 sources)Angiotensin Converting Enzyme InhibitorStart: 23-42-7699bplq 1 tablet by mouth twice dailyLisinopril 20 mg tablet Active 0 .ROUTE .COMPLEX 180 December 04, 2023 5:58pm Take 1 tablet by mouth twice dailyStart: 09-25-2018 End: 20-75-2326yffj 1 tablet by mouth twice dailylisinopril (ZESTRIL, PRINIVIL) 20 mg tablet Take 20 mg by mouth twice daily. 11/11/2020 Activetake 1 tablet by mouth every twenty-four hoursLisinopril 20 MG 1 tablet Orally Once a day Active Comment on above:Take 20 mg by mouth twice daily.naproxen sodium 220 mg oral tablet (1 source)Nonsteroidal Anti-inflammatory DrugStart: 30-41-0013daar 220 mg by mouth every twelve hours as needed for painAleve 220 mg, Oral, q12hr, PRN as needed for pain Start Date: 09/25/18 Status: Orderedofloxacin 3 mg/ml ophthalmic solution (2 sources)Quinolone AntimicrobialStart: 03-13-2024 End: 88-66-4523iwku 1 drop(s) into the eye(s) five times dailyofloxacin (Ocuflox) 0.3 % ophthalmic solution Indications: Age-related nuclear cataract of right eye Administer 1 drop into affected eye(s) 5 (five) times a day for 1 day Starting 1 day before surgery, continue after surgery as directed 5 mL 1 03/13/2024 03/14/2024 Activepramipexole dihydrochloride 0.75 mg oral tablet (20 sources)Nonergot Dopamine AgonistStart: 31-02-1437yoqy 1 tablet by mouth once daily at bedtimePramipexole 0.75 mg tablet Active 0.75 MG PO Daily at bedtime July 17, 2024 10:44amStart: 08-22-2023 End: 45-20-6718fjow 1 tablet by mouth at bedtimepramipexole (Mirapex) 0.5 MG tablet Take 0.5 mg by mouth at bedtime 02/13/2024 ActiveStart: 09-25-2018 End: 49-77-4706xbybicmyinm (MIRAPEX) 0.25 mg tablet TAKE 1 & 1 2 (ONE HALF) TABLET BY MOUTH ONCE DAILY IN THE EVENING 11/05/2020 ActiveComment on above:TAKE 1 & 1 2 (ONE HALF) TABLET BY MOUTH ONCE DAILY IN THE EVENINGprednisoLONE acetate 10 mg/ml ophthalmic suspension (2 sources)CorticosteroidStart: 03-13-2024 End: 33-82-4188xzzbzwcwNWNB acetate (Pred-Forte) 1 % ophthalmic suspension Indications: Age-related nuclear cataract of right eye Administer 1 drop into affected eye(s) in the morning and 1 drop at noon and 1 drop in the evening and 1 drop before bedtime. Do all this for 14 days. 5 mL 1 03/13/2024 03/27/2024 Activerosuvastatin calcium 20 mg oral tablet (13 sources)HMG-CoA Reductase InhibitorStart: 07-42-3642moqe 1 tablet by mouth once dailyRosuvastatin 20 mg tablet Active 0 .ROUTE .COMPLEX December 02, 2023 1:01pm Take 1 tablet by mouth once dailyStart: 06-15-2023 End: 20-11-5958hcza 1 tablet by mouth once dailyRosuvastatin 20 mg tablet Discontinued 20 MG PO Daily June 15, 2023 2:26pm November 1:01pm Completed/Discontinued Medications MedicationDrug Class(es)DatesSig (Normalized)Sig (Original)benzonatate 200 mg oral capsule (2 sources)Non-narcotic AntitussiveStart: 08-23-2023 End: 57-68-4149lccb 1 capsule by mouth three times dailyBenzonatate 200 mg capsule Discontinued 200 MG PO Three times daily 30 10 August 23, 2023 12:00am July 17, 2024 10:39amcelecoxib 200 mg oral capsule (4 sources)Nonsteroidal Anti-inflammatory DrugStart: 03-10-2006 End: 23-30-6213TFFOCTXV 200 MG CAP Take one(1) capsule daily. 0 03/10/2006 11/22/2023 DiscontinuedComment on above:Take one(1) capsule daily.lovastatin 40 mg oral tablet (20 sources)HMG-CoA Reductase InhibitorStart: 09-25-2018 End: 58-70-3298uyyo 1 tablet by mouth once daily in the eveningLovastatin 40 mg tablet Discontinued 40 MG PO Every evening 90 90 April 26, 2023 1:00am June 15, 2023 2:26pmComment on above:Take 40 mg by mouth daily at bedtime. Problems Active Problems Problem ClassificationProblemDateDocumented DateEpisodic/ChronicAcute bronchitis (1 source)Acute bronchitis due to other specified organisms; Translations: [Acute bronchitis]22-56-7206ExufevtoVzuqlhea (3 sources)Age-related nuclear cataract of right eye; Translations: [Age-related nuclear cataract, right eye]Onset: 799763-75-7547XxrmcflUazdxmxd mellitus without complication (20 sources)Impaired fasting glycemia; Translations: [Impaired fasting glucose] EpisodicDisorders of lipid metabolism (20 sources)Familial hypercholesterolemia; Translations: [Pure hypercholesterolemia]Onset: 33-36-7064YmmkpxuKeruraehk of teeth and jaw (1 source)Periapical abscess without sinusEpisodicEssential hypertension (20 sources)Essential (primary) hypertension; Translations: [Hypertensive disorder]Onset: 06-17-8758TwjrbctVxplfsakuetqy symptoms and ill-defined conditions (1 source)Urinary cggsujrbxgxi71-81-2251OtoxrpbLyjrg valve disorders (20 sources)Nonrheumatic aortic (valve) stenosis; Translations: [Rheumatic tricuspid insufficiency]Onset: 45-94-3365SlyxmvjOlnppbq on above:Echo: LVEF 65%, Velocity 334, gradient 25/x, DVI 0.29, RENETTA 0.89 - 11/2023Hyperplasia of prostate (6 sources)Benign prostatic hypertrophy without outflow obstruction; Translations: [Hypertrophy (benign) of prostate without urinary obstruction and other lower urinary tract symptoms [LUTS]]Onset: 19-85-1548JtxxphsNkngfmzwdlxtq and screening for infectious disease (3 sources)Vaccination given; Translations: [Encounter for immunization]Episodic Neoplasms of unspecified nature or uncertain behavior (8 sources)Neoplastic disease of uncertain behavior; Translations: [Neoplasm of uncertain behavior of connective and other soft tissue]34-09-0156Ogvsdbkw Osteoarthritis (12 sources)Localized, primary osteoarthritis of the hand; Translations: [Primary localized osteoarthrosis, hand]Onset: 570995-93-5274AodnzkdFqrwd aftercare (2 sources)Other predatory animal exterminator (current) drug therapy; Translations: [OTH FPC CURRENT DRUG THERAPY]Onset: 67-17-6539DtkhqkupNzddw aftercare (3 sources)Long-term current use of drug therapy; Translations: [Other predatory animal exterminator (current) drug therapy]EpisodicOther and ill-defined heart disease (1 source)Other ill-defined heart diseases; Translations: [OTHER ILL-DEFINED HEART DISEASES]Onset: 26-04-5633DnotxbkZlbrf ear and sense organ disorders (8 sources)Sensorineural hearing loss; Translations: [Unspecified sensorineural hearing loss]53-29-9600HjrctyoOshat hereditary and degenerative nervous system conditions (19 sources)Restless legs; Translations: [Restless legs syndrome]11-14-2019 ChronicOther hereditary and degenerative nervous system conditions (5 sources)Restless legs syndrome; Translations: [Restless legs syndrome (RLS)] ChronicOther injuries and conditions due to external causes (3 sources)History of fall; Translations: [History of falling]EpisodicOther lower respiratory disease (3 sources)Cough; Translations: [Cough]77-04-5079DwmgnbtuHwgzp lower respiratory disease (1 source)Expiratory wheezing; Translations: [Wheezing]17-13-8594ZwxslwjyAfxxi lower respiratory disease (1 source)Wheezing; Translations: [Wheezing]34-72-0290BsfztbuoOrjvq male genital disorders (19 sources)Induratio penis plastica; Translations: [Induration penis plastica] 64-11-3922ExwrpqvYlgqo male genital disorders (15 sources)Impotence of organic origin; Translations: [Erectile dysfunction due to arterial insufficiency]Onset: 108355-47-9542NtqqbotBxbdm male genital disorders (4 sources)Erectile dysfunction co-occurrent and due to arterial insufficiency; Translations: [Erectile dysfunction due to arterial insufficiency]06-11-2023 ChronicOther nutritional; endocrine; and metabolic disorders (1 source)Xogkobinaoqoh46-72-2862BepmsjbUcxernax codes; unclassified (9 sources)Periodic limb movement disorder; Translations: [Periodic limb movement disorder]92-91-8801CqghdbbXrzrarpi codes; unclassified (1 source)Periodic limb movement disorderChronicResidual codes; unclassified (1 source)Periodic leg movements of sleep ; Translations: [Periodic limb movement disorder]67-20-7694VotsrnpQdrlcvye codes; unclassified (2 sources)Procedure and treatment not carried out because of patient's decision for unspecified reasons; Translations: [Surgical or other procedure not carried out because of patient's decision]EpisodicResidual codes; unclassified (1 source)Colon cancer screening declined; Translations: [Procedure and treatment not carried out because of patient's decision for unspecified reasons] 69-30-4533Qafjfxxr Past or Other Problems Problem ClassificationProblemDateDocumented DateEpisodic/ChronicMalaise and fatigue (3 sources)Malaise and fatigue; Translations: [Other malaise and fatigue]Onset: 35-97-0060EqvtqcrqFneje screening for suspected conditions (not mental disorders or infectious disease) (13 sources)Encounter for screening for malignant neoplasm of prostate; Translations: [Encounter for screening for diseases of the blood and blood- forming organs and certain disorders involving the immune mechanism]Onset: 37-62-2223LnxisiizYubeehg on above:PSA: 0.24 - 11/2022, 0.24 - 4Residual codes; unclassified (3 sources)Requires influenza virus vaccination; Translations: [Need for prophylactic vaccination and inoculation, Influenza]Onset: 06-20-7313Rgxeoxhj Unclassified (3 sources)Long-term current use of drug therapy; Translations: [Long-term (current) use of other medications]Onset: 06-05-2018 Results Test NameValueInterpretationReference RangeFacilityCNOVon 75-90-4634LQUIYeiiby Visit (CARDAV) CARO HECTOR ([id number]) 1945 M Date Time Provider Department 08/06/24 2:00 PM SURINDER DILLON During your visit today, we recorded the following information about you: Pulse Blood pressure Weight Height 68/minute 142/67 61.5 kg 1.676 m Surinder Dillon MD 08/06/2024 2:15 PM Signed [facility] Department of Cardiovascular Medicine SECTION OF CARDIOLOGY OUTPATIENT VISIT DATE 08/06/2024 OUTPATIENT VISIT TYPE Established CHIEF COMPLAINT: CV HISTORY OF PRESENT ILLNESS: Mr. Hector is a pleasant 79 year old male here for cardiovascular follow-up. Initial consultation 04/26/2023. Symptom-adames, BP at home 112-132/DBP 58-72 No CP/dyspnea/leg swelling/major bleeding. CURRENT MEDICATIONS: gabapentin (NEURONTIN) 300 mg capsule Take 300 mg by mouth daily at bedtime. rosuvastatin (CRESTOR) 20 mg tablet Take 20 mg by mouth once daily. amLODIPine (NORVASC) 2.5 mg tablet Take 2.5 mg by mouth twice daily. lisinopril (ZESTRIL, PRINIVIL) 20 mg tablet Take 20 mg by mouth twice daily. pramipexole (MIRAPEX) 0.25 mg tablet TAKE 1 AND 1 2 (ONE HALF) TABLET BY MOUTH ONCE DAILY IN THE EVENING I have personally interviewed, confirmed and edited the above information if obtained by others. Physical Exam BP 142/67 (BP Site: Left Arm, BP Position: Sitting, BP Cuff Size: Regular Adult) Pulse 68 Ht 167.6 cm (5' 6 ) Wt 61.5 kg (135 lb 9.3 oz) BMI 21.88 kg/m? Gen: alert, no acute distress, with HEENT: normocephalic, atraumatic, no rinorrhea, no congestion, normal hearing, EOMI, no eye discharge Heart: 05/10 mid peaking systolic murmur, S1/S2+, regular rate and rhythm Lungs: no wheezing, no rales, symmetric expansion, nonlabored Abdomen: soft, nontender, nondistended Musculoskeletal: no edema, nontender Neurological: no focal deficits, alert, oriented Psychatric: cooperative, appropriate Last 20 Encounter BP Readings: Date: BP: 08/06/2024 142/67 11/22/2023 146/60 04/26/2023 160/76 12/09/2020 144/74 03/16/2006 134/91] Pertinent Diagnostics/Labs/Data reviewed (ECGs and echo listed personally reviewed today or prior) and include: 12/02/2023 Tc-PYP Scan: not consistent with TTR TTE 08/06/2024: LVEF 65%, mild LVH, sinus 3.8cm, mild chordal PADMINI; normal LA/RA size, normal RVSF/size, G1DD (Mitral E 50cm/s), 1+ AR, negative apical sparring pattern, AV Peak V 3.49m/s, AV mean 29mmHg, DVI 0.29, RENETTA 0.91cm2, TTE 11/22/2023: LVEF ~65%, mild LVH, , G1DD, low-normal LA pressures, normal LA/RA size, 1+ AR, Moderate aortic stenosis: AV peak V 3.34m/s, AV mean 25mmHg, DVI 0.29, RENETTA 0.89cm2, relative regional strain 0.7 some apical sparring pattern TTE report only 11/22/2022: LVEF 60-65%, normal LA/RA size, normal RVSF; mod , mild AI, trileaflet AV - RENETTA 1.5cm2, 08/06/2024 ECG: NSR, nonspecific ST changes, normal HI/QT interval 04/26/23 ECG: NSR, cannot exclude septal infarct pattern; nonspecific ST changes Nt ProBNP 11/24/2023: 122 11/24/2023: TC 167, TG 100, HDL 67, LDL 80, K/L 1.22, UMPA negative 12/04/2022: LDL 110, HDL 75, TG 65 Assessment AND Plan Aortic Stenosis - mostly moderate aortic stenosis, RENETTA in severe range visually restricted; mild-mod calcified Other: HTN, HLD, OA, minimal smoking in past as teenager, other Impression: New to me 04/26/2023: BP at home per their report; active lifestyle; continue lovastatin; discussed AV, suspect mild-moderate. 11/22/2023: BP at home better. Increase water hydration. Reviewed echocardiogram. Borderline apical sparring. Now on rosuvastatin lipids improved with Dr. Orellana. TC-PYP scan, Lp(a), lipids, BMP/BNP for valve hemodynamic changes. 08/07/2024: mild increase in peak AV velocity but DVI similar. BP at home better. Plan: Rosuvastatin 20mg every day , Lisinopril 20mg bid, Amlodipine 2.5mg bid Increase water hydration based on inflows RTC ~ 7 months, can repeat echo after that Thank you, CONTACT INFORMATION: Surinder Dillon M.D. Cardiovascular Medicine Staff [facility]Prov[facility] Mail Code [id number] [facility] [place] [address] Referring Provider: SURINDER DILLON [[id number]] Allergies As of Date: 08/06/2024 Noted Allergy Reaction DOXYCYCLINE 03/22/2006 11 - Vomiting Date Reviewed: 08/06/2024 Reviewed by: Deborah Zhao RN - Fully Assessed Reason for Visit: Established Patient [175] Primary Visit Diagnosis:Nonrheumatic aortic valve stenosis [I35.0] Other Visit Diagnosis:Primary hypertension [I10] Order(s):ECG COMPLETE [ECG01] Order #: [id number] Prescriptions as of 08/06/2024 - gabapentin (NEURONTIN) 300 mg capsule Take 300 mg by mouth daily at bedtime. - rosuvastatin (CRESTOR) 20 mg tablet Take 20 mg by mouth once daily. - amLODIPine (NORVASC) 2.5 mg tablet Take 2.5 mg by m (more content not included)...NormalHolzer [facility] – [facility] GJQ41ca 70-39-0535WSS66Rbsxowpexhn Rate : 68 BPM Atrial Rate : 68 BPM P-R Interval : 138 ms QRS Duration : 94 ms Q-T Interval : 408 ms QTC Calculation(Bazett) : 433 ms Calculated P [place] : 71 degrees Calculated R [place] : 85 degrees Calculated T [place] : 59 degrees NORMAL SINUS RHYTHM WITH SINUS ARRHYTHMIA NONSPECIFIC ST ABNORMALITY ABNORMAL ECG Confirmed by JACOB WELSH M.D. ([id number]) on 08/07/2024 2:25:54 PM NAME : CARO HECTOR PID : [id number] : 1945 Gender : Male Race : ORD : Procedure Date : Aug 06 2024 13:54:45 Edit Date : Aug 07 2024 14:25:57 Diagnosis: NORMAL SINUS RHYTHM WITH SINUS ARRHYTHMIA NONSPECIFIC ST ABNORMALITY ABNORMAL ECG Confirmed by JACOB WELSH M.D. ([id number]) on 08/07/2024 2:25:54 PM Test Reason : Location : 192 : AVCRD Overread By : JACOB WELSH M.D. Edited By : JACOB WELSH M.D. Referred By : SURINDER DILLON [facility] [id number] Echocardiography Report: Transthoracic Echo [facility] Date of service: 08/06/2024 1:06:07 PM SERVICE INSTRUCTOR Ordering physician: SURINDER DILLON Exam indication: Routine surveillance of moderate or severe valvular stenosis (>1yr) Technologist: Mervat Peralta [facility] Interpreting physician: Melvin Ellsworth MD PATIENT: Name: MR. CARO HECTOR : 1945 Age: 79 years Gender: M Primary rhythm: sinus. Height: 167.60 cm BSA: 1.69 m Weight: 61.20 kg BMI: 21.8 kg/m Heart rate 67 bpm Blood pressure 142/67 mmHg Color Doppler was utilized to interrogate the cardiac valves assessed and spectral Doppler was utilized to determine the flow velocities and pressure gradients reported in this exam. Myocardial strain analysis was performed in this exam to aid in the assessment of cardiac function. MEASUREMENTS: Value Indexed Normal Max aortic dimension 3.8 cm Ao < 3.8 Left atrial volume 38 ml (Butcher's) 22 ml/m Pantera <= 34 LV ID (diastole) 3.7 cm (2D) 2.22 cm/m LV ID (systole) 2.7 cm (2D) 1.61 cm/m IVS, leaflet tips 1.4 cm (2D) Posterior wall thickness 1.3 cm (2D) Left ventricular mass 180 g (2D) 107 g/m Global peak long strain -15.4 % LV stroke volume 55 ml (2D biplane) LVOT stroke volume 68 ml 40 ml/m LV end diastolic volume 91 ml (2D biplane) 54.2 ml/m 34<=EDVi<75 LV end systolic volume 36 ml (2D biplane) 21.5 ml/m Ejection Fraction 60 % (2D biplane) EF > 52 FINDINGS: LEFT VENTRICLE The left ventricle is normal in size. There is mild concentric left ventricular hypertrophy. Left ventricular systolic function is normal. Global LV myocardial strain is borderline abnormal. The relative regional strain ratio is 0.4 (a score of greater than 1 is sensitive and specific for the diagnosis of cardiac amyloidosis). Grade I left ventricular diastolic dysfunction. Mitral annular lateral E/e': 6.3. Mitral annular septal E/e': 6.3. Wall Motion: All scored segments are normal. RIGHT VENTRICLE The right ventricle is normal in size. Right ventricular systolic function is normal. RV systolic tissue Doppler velocity is 11.0 cm/s. Tricuspid annular displacement is 1.9 cm. Estimated right ventricular systolic pressure is likely underestimated due to a weak or incomplete tricuspid regurgitation signal and is, at least, 20 mmHg consistent with normal pulmonary artery pressures. Estimated right atrial pressure is 3 mmHg based on IVC assessment. LEFT ATRIUM The left atrial cavity is normal in size. Pulmonary Veins: The pulmonary venous pattern showed normal systolic flow. RIGHT ATRIUM The right atrial cavity is normal in size. Inferior Vena Cava: The inferior vena cava appears normal measuring 1.5 cm. The vessel decreases greater than 50 percent with inspiration. MITRAL VALVE There is trace (trace - 1+) mitral valve regurgitation. There is no thickening. The pressure half time is 79 msec. The peak mitral E/A ratio is 0.60. The average mitral E/e' ratio is 6.3. The mitral flow deceleration time is 273 msec. TRICUSPID VALVE There is trace (trace - 1+) tricuspid valve regurgitation. There is no thickening. The hepatic venous pattern showed normal systolic flow. AORTIC VALVE There is moderately severe aortic valve stenosis caused by calcified valve. There is mild (1+ - 2+)aortic valve regurgitation. There is moderate calcification. The peak gradient is 49 mmHg (peak velocity = 348.9 cm/s). The mean gradient is 29 mmHg. The LVOT mean velocity is 65.9 cm/s. The LVOT diameter is 2.0 cm. The aortic VTI is 74.2 cm. The mean velocity in the aortic valve is 246.7 cm/s. Thedimensionless valve index is 0.29. AV area is 0.91 cm (0.54 cm /m ) by continuity, VTI. The LVOT stroke volume index is 40 ml/m . PULMONIC VALVE There is trace pulmonic valve regurgitation. There is no thickening. AORTA The visualized aorta is borderline dilated. Measurements - Aortic valve annulus 1.9 cm. Sinus: 3.8 cm. Sinotubular junction 2.8 cm. Mid ascending aorta 3.4 cm. Distal ascending aorta 3.4 cm. Mid arch 2.1 cm. INTERATRIAL SEPTUM There is no evidence of intracardiac shunting as detected by Doppler. PERICARDIUM There is no pericardial effusion. CONCLUSIONS: - Exam indication: Routine surveillance of moderate or severe valvular stenosis (>1yr) - The left ventricle is normal in size. There is mild concentric left ventricular hypertrophy. Leftventricular systolic function is normal. EF = 60 5% (2D biplane) - The right ventricle is normal in size. Right ventricular systolic function is normal. - The visualized aorta is borderline dilated with a maximal dimension of 3.8 cm. - There is moderately severe aortic valve stenosis caused by calcified valve. AV area is 0.91 cm (0.54 cm /m ) by continuity, VTI. The peak gradient is 49 mmHg, the mean gradient is 29 mmHg and the dimensionless valve index is 0.29. Prior pk/mn gradients were (more content not included)...NormalCenterville Eye+[facility] - bilateralon 61-29-4052Ibxdvvtuh: Cataract both eyes (OU) Testing Indication: Performed for preop measurements in the determination of an intraocular lens (IOL) for both eyes (OU) Test Reliability: Good quality both eyes (OU) Interpretation: Good measurements for intraocular lens (IOL) calculation purposes. Calculation made for both eyes (OU).[facility] Radiology Study observation (narrative)[facility] HealthcareBasophils Auto (Bld) [#/Vol]on 96-25-3257Dqoaescwg (Bld) [#/Vol]Automated basophil count0.0-0.1 [facility] HospitalBasophils/100 WBC Auto (Bld)on 01-19-2024 Basophils/100 WBC (Bld)Automated basophil %0.2-2.0[facility] HospitalCholesterol in LDL Calc [Mass/Vol]on 37-03-7940Znnsyitcpuy in LDL [Mass/Vol]Cholesterol in LDL [Mass/volume] in Serum or Plasma by calculation [facility] HospitalComment on above:<100 mg/dl MAZWCEG500-784 mg/dl NEAR OR ABOVE AKMDYKI105-778 mg/dl BORDERLINE YTTK005-955 mg/dl HIGH>190 mg/dl VERY HIGHCholesterol in VLDL Calc [Mass/Vol]on 03-71-8126Ehbxbhqymwv in VLDL [Mass/Vol]Cholesterol in VLDL [Mass/volume] in Serum or Plasma by calculationOhio State East HospitalEosinophils/100 WBC Auto (Bld)on 24-87-3092Vrpiyyolosq/100 WBC (Bld)Automated eosinophil %High0.9-7.0[facility] HospitalErythrocyte distribution width Auto (RBC) [Ratio]on 79-44-5551Wxfgajrckcn distribution width (RBC) [Ratio]Erythrocyte distribution width [Ratio] by Automated count11.0-15.0[facility] Estimated glomerular filtration rate (GFR) non- Americanon 01-19-2024 GFR/1.73 sq M.predicted among non-blacks MDRD (S/P/Bld) [Vol rate/Area]Estimated glomerular filtration rate (GFR) non->=60 mL/min/1.73m 2 [facility] HospitalGlobulin Calc (S) [Mass/Vol]on 01-19-2024 Globulin (S) [Mass/Vol]Serum globulin measurement by calculation (mass/volume) [facility] HospitalGlucose mean value [Mass/volume] in Blood Estimated from glycated hemoglobinon 88-60-8081Sdrwley glucose Estimated from glycated hemoglobin (Bld) [Mass/Vol]Glucose mean value [Mass/volume] in Blood Estimated from glycated hemoglobinOhio State East HospitalHematocrit Auto (Bld) [Volume fraction]on 12-79-3914Ldtorfnpwv (Bld) [Volume fraction] Hematocrit [Volume Fraction] of Blood by Automated count42.0-54.0[facility] HospitalHemoglobin [Mass/volume] in Bloodon 46-86-0546Zmfzmdhnrp (Bld) [Mass/Vol]Hemoglobin [Mass/volume] in Blood14.0-18.0[facility] HospitalLaboratory - Chemistry and Chemistry - challengeon 01-19-2024 Albumin [Mass/Vol]3.4 g/dL3.4-5.0[facility] HospitalALP [Catalytic activity/Vol]75 U/Q75-994SpvhveirmOhio State East HospitalALT [Catalytic activity/Vol]25 U/L38-32XhinldqodOhio State East HospitalAST [Catalytic activity/Vol]13 U/EVyk57-37FnjazqzczOhio State East HospitalBilirubin [Mass/Vol] 0.9 mg/dL0.2-1.0[facility] HospitalCalcium [Mass/Vol]8.4 mg/dLLow 8.5-10.1FMercy Health Urbana HospitalChloride [Moles/Vol]107 mmol/L98-107 [facility] HospitalCholesterol [Mass/Vol]149 mg/dL<=200[facility] HospitalCholesterol in HDL [Mass/Vol]64 mg/mSDgpo73-48BrznbvdqbOhio State East HospitalComment on above:> or =60 mg/dl - LOW CARDIOVASCULAR RISK<40 mg/dl - HIGH CARDIOVASCULAR RISKCO2 [Moles/Vol]27.0 mmol/L21.0-32.0 [facility] HospitalCreatinine [Mass/Vol]1.00 mg/dL0.70-1.30 [facility] HospitalGFR/1.73 sq M.predicted MDRD (S/P/Bld) [Vol rate/Area]mL/min/{1.73_m2}>=60 mL/min/1.73m 2FMercy Health Urbana Hospital Glucose [Mass/Vol]119 mg/vBAtcc28-084IkjrluxamOhio State East HospitalPotassium [Moles/Vol]4.4 mmol/L3.5-5.1FMercy Health Urbana HospitalProtein [Mass/Vol] 6.6 g/dL6.4-8.2FUC Medical Centerodium [Moles/Vol]143 mmol/L 136-145[facility] HospitalTriglyceride [Mass/Vol]67 mg/dL<=150 [facility] HospitalUrea nitrogen [Mass/Vol]10.0 mg/dL7.0-18.0 [facility] HospitalUrea nitrogen/Creatinine [Mass ratio]10.0 mg/mg [facility] HospitalLaboratory - Hematology and Cell countson 10-25-5634YiS7s (Bld) [Mass fraction]5.8 %4.5-6.2FMercy Health Urbana HospitalComment on above:ADA RECOMMENDED LIMIT 4.0 - 6.0ADA THERAPEUTIC TARGET < 7.0ACTION SUGGESTED> 7.0Immature granulocytes/100 WBC (Bld)0.2 %0.0-0.5FMercy Health Urbana HospitalLeukocytes [#/volume] corrected for nucleated erythrocytes in Blood by Automated counon 45-72-8182XNF corrected for nucl RBC Auto (Bld) [#/Vol]Leukocytes [#/volume] corrected for nucleated erythrocytes in Blood by Automated coun4.0-11.0[facility] HospitalLymphocytes Auto (Bld) [#/Vol]on 69-01-4961Upvnetxbhes (Bld) [#/Vol]Lymphocytes [#/volume] in Blood by Automated count1.2-3.8[facility] HospitalLymphocytes/100 WBC Auto (Bld)on 08-86-0635Zgwqlggwall/100 WBC (Bld)Lymphocytes/100 leukocytes in Blood by Automated count20.5-60.0[facility] HospitalH Auto (RBC) [Entitic mass]on 04-77-0655ARC (RBC) [Entitic mass]MCH [Entitic mass] by Automated count25.9-34.0[facility] HospitalMCHC Auto (RBC) [Mass/Vol]on 19-17-7875QCDX (RBC) [Mass/Vol]MCHC [Mass/volume] by Automated count29.9-35.2FMercy Health Urbana HospitalMCV Auto (RBC) [Entitic vol]on 49-27-0000QCR (RBC) [Entitic vol]MCV [Entitic volume] by Automated count 80.0-94.0[facility] HospitalMonocytes Auto (Bld) [#/Vol]on 34-94-6722Cmethylss (Bld) [#/Vol]Automated blood monocyte count0.3-0.8[facility] HospitalMonocytes/100 WBC Auto (Bld)on 56-54-3989Irjszpoog/100 WBC (Bld)Automated monocyte %1.7-12.0[facility] Neutrophils Auto (Bld) [#/Vol]on 65-95-1218Yvyypujfbpl (Bld) [#/Vol]Neutrophils [#/volume] in Blood by Automated count1.4-6.5FMercy Health Urbana Hospital Neutrophils/100 WBC Auto (Bld)on 93-06-4687Cogfcvyndvt/100 WBC (Bld)Automated neutrophil %43.0-75.0[facility] HospitalNo Panel Informationon 85-92-9768Dcknbyurzzz # (Auto)0.5 10 3/uL0.0-0.7FMercy Health Urbana HospitalImmature Granulocyte # (Auto)0.01 10 3/uL0.00-0.03[facility] HospitalProstate Specific Antigen Screen0.24 ng/mL<=4.00[facility] HospitalPlatelet mean volume Auto (Bld) [Entitic vol]on 01-19-2024 Platelet mean volume (Bld) [Entitic vol]Platelet mean volume [Entitic volume] in Blood by Automated count9.5-13.5FMercy Health Urbana HospitalPlatelets Auto (Bld) [#/Vol]on 33-02-5104Ulsbcrqca (Bld) [#/Vol]Platelets [#/volume] in Blood by Automated ehkdu763-401QmhqqeakeOhio State East HospitalRBC Auto (Bld) [#/Vol] on 51-63-0831TTP (Bld) [#/Vol]Erythrocytes [#/volume] in Blood by Automated count4.70-6.10[facility] Medical Centererum or plasma albumin/globulin mass ratioon 63-47-1586Hyzsbcm/Globulin [Mass ratio]Serum or plasma albumin/globulin mass ratioMetroHealth Main Campus Medical Centererum or plasma anion gap determinationon 74-01-4904Hzfeo gap [Moles/Vol]Serum or plasma anion gap determinationMetroHealth Main Campus Medical Centererum or plasma total cholesterol/high density lipoprotein (HDL) cholesterol mass vazquez 01-19-2024 Cholesterol.total/Cholesterol in HDL [Mass ratio]Serum or plasma total cholesterol/high density lipoprotein (HDL) cholesterol mass [facility] HospitalComment on above:3.3 - 4.4 LOW RISK4.4 - 7.1 AVERAGE RISK7.1 - 11.0 MODERATE RISK>11.0 HIGH RISKNM CARDIAC AMYLOID SPECT/CTon 31-69-2346UP CARDIAC AMYLOID SPECT/CT* * *Final Report* * * DATE OF EXAM: Dec 02 2023 3:54PM N 0847 - NM CARDIAC AMYLOID SPECT/CT / PROCEDURE REASON: multiple diagnoses * * * * Physician Interpretation * * * * NM CTAC Report: [facility] Date of service: 12/02/2023 2:47:52 PM CTAC interpreting physician: Rao Harper MD PATIENT: Name: MR. CARO HECTOR Age: 78 years Gender: M 1. Incidental Findings from limited non-diagnostic CTAC: - Coronary calcifications visualized. * * * Final * * * Patient: Name: MR. CARO HECTOR Age: 78 years Gender: M CONCLUSIONS: 1. Not Consistent with TTR amyloidosis * Please note that a negative or mildly positive study does not exclude AL amyloid. In addition, equivocal results could represent AL amyloid or early ATTR. We suggest concomitant workup of AL amyloid with laboratory testing and pathologic assessment as appropriate. Nuclear Med Report: Aw-25q-Siaofupqgqmzy PLANAR and SPECT: Myocardial imaging of the chest with CT attenuation correction was performed at 3 hours post IV injection of Tc-99m Pyrophosphate. See administered doses below. [facility] Date of service: 12/02/2023 2:47:52 PM [...] * * Final * * * RP Molding Machine Operator: PARTHA Transcribe Date/Time: Dec 02 2023 2:47P Dictated by : RAO HARPER MD This examination was interpreted and the report reviewed and electronically signed by: RAO HARPER MD on Dec 02 2023 4:15PM EST [id number] Center of [facility] for infarct W Tc-99m PYP Kelly 12-02-2023* * *Final Report* * * DATE OF EXAM: Dec 02 2023 3:54PM [facility] 0847 - NM CARDIAC AMYLOID SPECT/CT / PROCEDURE REASON: multiple diagnoses * * * * Physician Interpretation * * * * NM CTAC Report: [facility] Date of service: 12/02/2023 2:47:52 PM CTAC interpreting physician: Rao Harper MD PATIENT: Name: MR. CARO HECTOR Age: 78 years Gender: M 1. Incidental Findings from limited non-diagnostic CTAC: - Coronary calcifications visualized. * * * Final * * * Patient: Name: MR. CARO HECTOR Age: 78 years Gender: M CONCLUSIONS: 1. Not Consistent with TTR amyloidosis * Please note that a negative or mildly positive study does not exclude AL amyloid. In addition, equivocal results could represent AL amyloid or early ATTR. We suggest concomitant workup of AL amyloid with laboratory testing and pathologic assessment as appropriate. Nuclear Med Report: Py-24a-Uxfabebkddpyd PLANAR and SPECT: Myocardial imaging of the chest with CT attenuation correction was performed at 3 hours post IV injection of Tc-99m Pyrophosphate. See administered doses below. [facility] Date of service: 12/02/2023 2:47:52 PM [...] * * Final * * * RP Molding Machine Operator: PARTHA Transcribe Date/Time: Dec 02 2023 2:47P Dictated by : RAO HARPER MD This examination was interpreted and the report reviewed and electronically signed by: RAO HARPER MD on Dec 02 2023 4:15PM [facility] RADIOLOGYProvider, [facility] [place] - 12/02/2023 * * *Final Report* * * DATE OF EXAM: Dec 02 2023 3:54PM [facility] 0847 - NM CARDIAC AMYLOID SPECT/CT / PROCEDURE REASON: multiple diagnoses * * * * Physician Interpretation * * * * NM CTAC Report: [facility] Date of service: 12/02/2023 2:47:52 PM CTAC interpreting physician: Rao Harper MD PATIENT: Name: MR. CARO HECTOR Age: 78 years Gender: M 1. Incidental Findings from limited non-diagnostic CTAC: - Coronary calcifications visualized. * * * Final * * * Patient: Name: MR. CARO HECTOR Age: 78 years Gender: M CONCLUSIONS: 1. Not Consistent with TTR amyloidosis * Please note that a negative or mildly positive study does not exclude AL amyloid. In addition, equivocal results could represent AL amyloid or early ATTR. We suggest concomitant workup of AL amyloid with laboratory testing and pathologic assessment as appropriate. Nuclear Med Report: Eq-84i-Trayrezhjhodf PLANAR and SPECT: Myocardial imaging of the chest with CT attenuation correction was performed at 3 hours post IV injection of Tc-99m Pyrophosphate. See administered doses below. [facility] Date of service: 12/02/2023 2:47:52 PM [...] * * Final * * * RP Molding Machine Operator: PARTHA Transcribe Date/Time: Dec 02 2023 2:47P Dictated by : RAO HARPER MD This examination was interpreted and the report reviewed and electronically signed by: RAO HARPER MD on Dec 02 2023 4:15PM EST [facility] (narrative)[facility] Heart for infarct W Tc-99m PYP IVOrdered By: Ccf Provider on 32-97-2981Afwupimxe ClinicCNPNon 07-99-8650XQGVYzizhyrzx (CARDAV) CARO HECTOR ([id number]) 1945 M Date Time Provider Department 12/01/23 SURINDER DILLON During your visit today, we recorded the following information about you: Priscilla Odell 12/01/2023 2:05 PM Signed Patient would like his records and testings from Dr Dillon faxed over to his PCP please fax to: [phone] Attn: Braeden Orellana. Please send over. Patient has been identified by name and birthdate. Duration of symptoms: N/A Person calling: spouse: Hilaria Call patient at: on cell [phone] (cell) Was an appointment scheduled: No Closing statement: Results or non-symptom based questions: Thank you for calling [facility], your call will be returned within the [...] 04/25/2023 Encounter Status:Closed by DEBORAH MERAZ on 12/01/23NormalCMercy HospitalBaspring view hospital metabolic 2000 panelon 93-31-5595Gyscq gap [Moles/Vol]4 mmol/LLow 8-15[facility] JacksonComselect specialty hospital-[place] on above:Order Comment: Specimen Type: BLOOD SPECIMEN Ordering Facility: [facility] Address: [address] [place], [place] [address]Performed By: #### 88295-0, 24446-2 #### [facility] CLIA [id number] [address] [place] [address] [place] AMERICACalcium [Mass/Vol]9.5 mg/dLNormal 8.5-10.2CParkwood Hospital on above:Order Comment: Specimen Type: BLOOD SPECIMEN Ordering Facility: [facility] Address: [address] [place], [place] [address]Performed By: #### 59386-5, 64375-0 #### [facility] CLIA [id number] [address] [place] [address] [place] AMERICAChloride [Moles/Vol]105 mmol/LNormal 98-107[facility] on above:Order Comment: Specimen Type: BLOOD SPECIMEN Ordering Facility: [facility] Address: [address] [place], [place] [address]Performed By: #### 23502-0, 22312-5 #### [facility] CLIA [id number] [address] [place] [address] [place] AMERICACO2 [Moles/Vol]30 mmol/UHkpdac20-16 [facility] on above:Order Comment: Specimen Type: BLOOD SPECIMEN Ordering Facility: [facility] Address: [address] [place], [place] [address]Performed By: #### 75028-2, 14999-3 #### [facility] CLIA [id number] [address] [place] [address] [place] AMERICACreatinine [Mass/Vol]0.90 mg/dLNormal 0.73-1.22[facility] on above:Order Comment: Specimen Type: BLOOD SPECIMEN Ordering Facility: [facility] Address: [address] [place], [place] [address]Performed By: #### 18385-2, 65995-2 #### [facility] CLIA [id number] [address] [place] [address] [place] AMERICACreatinine and Glomerular filtration rate.predicted panel (S/P/Bld)89 mL/min/1.73m???Normal>=60[facility] on above:Order Comment: Specimen Type: BLOOD SPECIMEN Ordering Facility: [facility] Address: [address] [place], [place] [id number] Comment: Estimated Glomerular Filtration Rate (eGFR) is calculated using the 2020 CKD-EPI cre atinine equation. This equation utilizes serum creatinine, sex, and age as parameters. The creatinine assay has traceable calibration to isotope dilution- mass spectrometry. Refer to KDIGO guidelines for clinical interpretation. In patients with unstable renal function, e.g. those with acute kidney injury, the eGFR may not accurately reflect actual GFR.Performed By: #### 61015-5, 57735-9 #### [facility] CLIA [id number] [address] [place] [address] [place] AMERICAGlucose [Mass/Vol]131 mg/jAOonz41-05 [facility] on above:Order Comment: Specimen Type: BLOOD SPECIMEN Ordering Facility: [facility] Address: [address] [place], [place] [address]Result Comment: The [place] Diabetes Association (ADA) provides guidance for cutoff [...] Standards of Medical Care in Diabetes 2016, [place] [employer]. Diabetes Care. 2016.39(Suppl 1).Performed By: #### 98966-7, 66062-1 #### [facility]ENTERAngel[facility] CLIA [id number] [address] [place] [address] [place] AMERICAPotassium [Moles/Vol]4.8 mmol/LNormal 3.7-5.1CParkwood Hospital on above:Order Comment: Specimen Type: BLOOD SPECIMEN Ordering Facility: [facility] Address: [address] [place], [place] [address]Performed By: #### 67741-9, 16879-4 #### [facility]ENTERAngel[facility] CLIA [id number] [address] [place] [address] [place] AMERICASodium [Moles/Vol]139 mmol/LNormal 136-144[facility] on above:Order Comment: Specimen Type: BLOOD SPECIMEN Ordering Facility: [facility] Address: [address] [place], [place] [address]Performed By: #### 98414-0, 86308-8 #### [facility]ENTERAngel[facility] CLIA [id number] [address] [place] [address] [place] AMERICAUrea nitrogen [Mass/Vol]14 mg/dLNormal 9-[facility] on above:Order Comment: Specimen Type: BLOOD SPECIMEN Ordering Facility: [facility] Address: [address] [place], [place] [address]Performed By: #### 13014-3, 47548-8 #### [facility] CLIA [id number] [address] [place] [address] [place] AMERICACholesterol in LDL Calc [Mass/Vol]on 27-03-9747Utpjagvvyzk in LDL [Mass/Vol]Cholesterol in LDL [Mass/volume] in Serum or Plasma by calculation<100[facility] HospitalComment on above: <100 mg/dL, Optimal 100-129 mg/dL, Near optimal/above optimal 130-159 mg/dL, Borderline high 160-189 mg/dL, High>189 mg/dL, Very highSecondary prevention optimal LDL Cholesterol levels are recommended to be < 70 mg/dLCholesterol in VLDL Calc [Mass/Vol]on 12-21-5288Kbuimujguvr in VLDL [Mass/Vol]Cholesterol in VLDL [Mass/volume] in Serum or Plasma by calculation<30[facility] HospitalIMMUNOFIXATION SCREEN, SERUMon 04-24-3956QWX RESULTNo M protein is identified.NormalNo M protein is identified.[facility] on above:Order Comment: Specimen Type: BLOOD SPECIMEN Ordering Facility: [facility] Address: [address] [place], [place] [address]Performed By: #### IFESC #### [facility] CLIA [id number] [address] [place], [place] [address] [address] [place] OF AMERICASTAFF REVIEW (MPA)Reviewed by Kai Bailey MD, Ph.D ([id number])[facility] on above:Order Comment: Specimen Type: BLOOD SPECIMEN Ordering Facility: [facility] Address: [address] [place], [place] [address]Performed By: #### IFESC #### [facility] CLIA [id number] [address] [place] [address] [place] AMERICAImmunoglobulin light chains.kappa.free [Mass/volume] in Serumon 58-76-6886Rlqxblhowlajnw light chains.kappa.free (S) [Mass/Vol]Immunoglobulin light chains.kappa.free [Mass/volume] in Serum3.3-19.4FMercy Health Urbana HospitalComment on above: Rarely, increased serum free light chains levels may not be detected or accurately quantified due to prozone phenomenon or in high viscosity samples using this immunoturbidimetric assay. Correlation with other laboratory results and clinical findings is recommended. The [place] Free Light Chain was performed using the Binding Site Optilite immunoturbidimetric method. Result obtained with different assay methods or kits cannot be used interchangeably.Immunoglobulin light chains.kappa.free/Immunoglobulin light chains.lambda.free [Tito 35-22-9981Nefwmamblwnmgz light chains.kappa.free/Immunoglobulin light chains.lambda.free (S) [Mass ratio]Immunoglobulin light chains.kappa.free/Immunoglobulin light chains.lambda.free [Mass0.26-1.65 [facility] HospitalImmunoglobulin light chains.lambda.free [Mass/volume] in Serum or Plasmaon 68-57-1127Unyqcyviknycao light chains.lambda.free [Mass/Vol]Immunoglobulin light chains.lambda.free [Mass/volume] in Serum or Plasma5.7-26.3FMercy Health Urbana HospitalComment on above:Rarely, increased serum free light chains levels may not be detected or accurately quantified due to prozone phenomenon or in high viscosity samples using this immunoturbidimetric assay. Correlation with other laboratory results and clinical findings is recommended. The [place] Free Light Chain was performed using the Binding Site Optilite immunoturbidimetric method. Result obtained with differentassay methods or kits cannot be used interchangeably. KAPPA/KIMBLE,FREE,SERon 57-15-1649Xeuvrgrvwexeew light chains.kappa.free (S) [Mass/Vol]17.1 mg/LNormal3.3-19.4CMercy HospitalComment on above: Order Comment: Specimen Type: BLOOD SPECIMEN Ordering Facility: [facility] Address: [address] [place], [place] [address]Result Comment: Rarely, increased serum free light chains levels may not be detected or accurately quantified due to prozone phenomenon or in high viscosity samples using this immunoturbidimetric assay. Correlation with other laboratory results and clinical findings is recommended. The [place] Free Light Chain was performed using the Binding Site Optilite immunoturbidimetric method. Result obtained with different assay methods or kits cannot be used interchangeably.Performed By: #### KLFRS #### [facility] CLIA [id number] [address] [place] [address] [place] AMERICAImmunoglobulin light chains.kappa/Immunoglobulin light chains.lambda (S) [Mass ratio]1.22Normal 0.26-1.65[facility] – JacksonComment on above:Order Comment: Specimen Type: BLOOD SPECIMEN Ordering Facility: [facility] Address: [address] [place], [place] [address]Performed By: #### KLFRS #### [facility] CLIA [id number] [address] [place] [address] STATES OF [facility]ANCE HOSPITALImmunoglobulin light chains.lambda.free [Mass/Vol]14.0 mg/LNormal5.7-26.3CMercy Hospital Comment on above:Order Comment: Specimen Type: BLOOD SPECIMEN Ordering Facility: [facility] Address: [address] [place], [place] [address]Result Comment: Rarely, increased serum free light chains levels may not be detected or accurately quantified due to prozone phenomenon or in high viscosity samples using this immunoturbidimetric assay. Correlation with other laboratory results and clinical findings is recommended. The Lambda Free Light Chain was performed using the Binding Site Optilite immunoturbidimetric method. Result obtained with different assay methods or kits cannot be used interchangeably.Performed By: #### KLFRS #### [facility] CLIA [id number] [address] [place] [address] [place] AMERICALaboratory - Chemistry and Chemistry - challengeon 08-26-5950Tycrkmy [Mass/Vol]9.5 mg/dL8.5-10.2FMercy Health Urbana HospitalChloride [Moles/Vol]105 mmol/A47-610NeigruvwhOhio State East HospitalCholesterol [Mass/Vol]167 mg/dL<200Ohio [facility] HospitalComment on above:<200 mg/dL, Desirable 200-239 mg/dL, Borderline high>239 mg/dL, HighCholesterol in HDL [Mass/Vol]67 mg/dL>39Ohio [facility] HospitalComment on above:40-59 mg/dL, Acceptable>59 mg/dL, High: Negative risk factor for coronary heart disease<40 mg/dL, Low: Positive risk factor for coronary heart diseaseCO2 [Moles/Vol]30 mmol/L97-10BydfdejcnOhio State East HospitalCreatinine [Mass/Vol]0.90 mg/dL0.73-1.22[facility] Glucose [Mass/Vol]131 mg/hNNaaq77-12KwwnzlpvjOhio State East HospitalComment on above:The [place] Diabetes Association (ADA) provides guidance for cutoff values for fasting glucose andrandom glucose. The ADA defines fasting as no caloric intake for at least 8 hours. Fasting plasma glucose results between 100 to 125 mg/dL indicate increased risk for diabetes (prediabetes).Fasting plasma glucose results greater than or equal to 126 mg/dL meet the criteria for diagnosis of diabetes. In the absence of unequivocal hyperglycemia, results should be confirmed by repeat testing. In a patient with classic symptoms of hyperglycemia or hyperglycemic crisis, random plasma glucose resultsgreater than or equal to 200 mg/dL meet the criteria for diagnosis of diabetes.Reference: Standardsof Medical Care in Diabetes 2016, [place] [employer]. Diabetes Care. 2016.39(Suppl 1).Potassium [Moles/Vol]4.8 mmol/L3.7-5.1FUC Medical Centerodium [Moles/Vol]139 mmol/U922-580UrwewnnlqOhio State East HospitalTriglyceride [Mass/Vol]100 mg/dL<150Ohio [facility] East HospitalComment on above:<150 mg/dL, Normal 150-199 mg/dL, Borderline high 200-499 mg/dL, High>499 mg/dL, Very highUrea nitrogen [Mass/Vol]14 mg/dL9-24[facility] HospitalLaboratory - Urinalysison 41-12-4887Zfatqbb (U) [Mass/Vol]5 mg/dL0-20[facility] HospitalLipid 1996 panelon 06-54-7924Tzrolxgjgbl [Mass/Vol]167 mg/dLNormal<200[facility] Comment on above:Order Comment: Specimen Type: BLOOD SPECIMEN Ordering Facility: [facility] Address: [address] [place], [place] [id number] Comment: <200 mg/dL, Desirable 200-239 mg/dL, Borderline high >239 mg/dL, HighPerformed By: #### 10394-9, 28426-9 #### [facility] CLIA [id number] [address] [place] [address] [place] AMERICACholesterol in HDL [Mass/Vol]67 mg/dL Normal>39[facility] JacksonComment on above:Order Comment: Specimen Type: BLOOD SPECIMEN Ordering Facility: [facility] Address: [address] [place] [address] Comment: 40-59 mg/dL, Acceptable >59 mg/dL, High: Negative risk factor for coronary heart disease <40 mg/dL, Low: Positive risk factor for coronary heart diseasePerformed By: #### 42231-7, 36745-4 #### [facility] CLIA [id number] [address] [place] [address] [place] AMERICACholesterol in LDL [Mass/Vol]80 mg/dL Normal<100[facility]Comselect [facility]-[place] on above:Order Comment: Specimen Type: BLOOD SPECIMEN Ordering Facility: [facility] Address: [address] [place], [place] [id number] Comment: <100 mg/dL, Optimal 100-129 mg/dL, Near optimal/above optimal 130-159 mg/dL, Borderline high 160-189 mg/dL, High >189 mg/dL, Very high Secondary prevention optimal LDL Cholesterol levels are recommended to be < 70 mg/dLPerformed By: #### 52717-9, 77207-9 #### [facility] CLIA [id number] [address] [place] [address] [place] AMERICACholesterol in LDL/Cholesterol in HDL [Mass ratio]1.19 {ratio}Normal<2.54[facility] on above: Order Comment: Specimen Type: BLOOD SPECIMEN Ordering Facility: [facility] Address: [address] [place], [place] [address]Result Comment: Reference: 1. National Cholesterol Education Program ATP III Guideline At-A-Glance Quick Desk Reference: National Heart, Lung, and Blood [place]. National Institutes of Health. 2001: NIH Publication No. 01-3305. 2. An International Atherosclerosis Society position paper: global recommendations for the management of dyslipidemia: executive summary, Atherosclerosis. 2014: 232(2):410-413.Performed By: #### 94997-7, 07434-2 #### [facility] CLIA [id number] [address] [place] [address] [place] AMERICACholesterol in VLDL [Mass/Vol]20 mg/dL Normal<30[facility] on above:Order Comment: Specimen Type: BLOOD SPECIMEN Ordering Facility: [facility] Address: [address] [place], [place] [address]Performed By: #### 96263-0, 86560-8 #### [facility] CLIA [id number] [address] [place] [address] [place] AMERICACholesterol non HDL [Mass/Vol]100 mg/dL Normal<130[facility] on above:Order Comment: Specimen Type: BLOOD SPECIMEN Ordering Facility: [facility] Address: [address] [place], [place] [address]Result Comment: <130 mg/dL, Optimal 130-159 mg/dL, Near optimal/above optimal 160-189 mg/dL, Borderline high 190-219 mg/dL, High >219 mg/dL, Very high Secondary prevention optimal non HDL Cholesterol levels are recommended to be <100 mg/dLPerformed By: #### 63528-4, 07207-0 #### [facility] CLIA [id number] [address] [place] [address] [place] AMERICACholesterol.total/Cholesterol in HDL [Mass ratio]2.49 {ratio}Normal<5.10[facility] Clinic ClevelandComment on above: Order Comment: Specimen Type: BLOOD SPECIMEN Ordering Facility: [facility] Address: [address] [place], [place] [address]Performed By: #### 68657-1, 66300-2 #### [facility] CLIA [id number] [address] [place] [address] [place] OF AMERICAFASTING TIME10 hrsNormalCParkwood Hospital on above:Order Comment: Specimen Type: BLOOD SPECIMEN Ordering Facility: [facility] Address: [address] [place], [place] [address]Performed By: #### 54957-3, 75692-3 #### [facility] CLIA [id number] [address] [place] [address] [place] AMERICATriglyceride [Mass/Vol]100 mg/dLNormal <150[facility] on above:Order Comment: Specimen Type: BLOOD SPECIMEN Ordering Facility: [facility] Address: [address] [place], [place] [address]Result Comment: <150 mg/dL, Normal 150-199 mg/dL, Borderline high 200-499 mg/dL, High >499 mg/dL, Very highPerformed By: #### 46386-8, 15112-1 #### [facility] CLIA [id number] [address] [place] [address] [place] AMERICAMONOCLONAL PROT UR W/INTERPon 03-59-0760SSQIG REVIEW ([facility])Reviewed by Kai Bailey MD, Ph.D ([id number])Normal [facility] on above:Order Comment: Specimen Type: URINE SPECIMEN Ordering Facility: [facility] Address: [address] [place], [place] [address]Performed By: #### URMPA #### [facility] CLIA [id number] [address] [place] [address] [place] [address] [place] AMERICAUMPA RESULTNo M protein is identified.NormalNo M protein is identified.[facility] on above:Order Comment: Specimen Type: URINE SPECIMEN Ordering Facility: [facility] Address: [address] [place], [place] [address]Performed By: #### URMPA #### [facility] CLIA [id number] [address] [place] [address] [place] AMERICANT-proBNP SerPl-mCncon 95-66-5346Bdgnrpasqyn peptide.B prohormone N-Terminal [Mass/Vol]122 pg/mLNormal <450[facility] JacksonComment on above:Order Comment: Specimen Type: BLOOD SPECIMEN Ordering Facility: [facility] Address: [address] [place], [place] [address]Performed By: #### 60215-6 #### [facility] CLIA [id number] [address] [place] [address] [place] AMERICANatriuretic peptide.B prohormone N-Terminal [Mass/volume] in Serum or Plasmaon 05-01-8650Nbwodugrasy peptide.B prohormone N-Terminal [Mass/Vol]Natriuretic peptide.B prohormone N- Terminal [Mass/volume] in Serum or Plasma<450[facility] HospitalNo Panel Informationon 25-61-5262Ooidk Monoclonal ProteinNo M protein is identified.No M protein is identified.[facility] HospitalUrine Monoclonal Staff ReviewReviewed by Kai Bailey MD, Ph.D ([id number])[facility] HospitalUrine Random Rssxprnxnp16.0 mg/dL20.0-300.0[facility] HospitalCholesterol Ratio (LDL/HDL)1.19<2.54[facility] HospitalComment on above:Reference:1. National Cholesterol Education Program ATP III Guideline At-A-Glance Quick Desk Reference: National Heart, Lung, and Blood [place]. National Institutes of Health. 2001: NIH Publication No. 01-3305.2. An International Atherosclerosis Society position paper: global recommendations for the management of dyslipidemia: executive summary, Atherosclerosis. 2014: 232(2):410-413.Estimated GFR (CKD-EPI)89 mL/min/1.73m??? >=60[facility] HospitalComment on above:Estimated Glomerular Filtration Rate (eGFR) is calculated using the 2020 CKD-EPI creatinine equation. This equation utilizes serum creatinine, sex, and age as parameters. The creatinine assay has traceable calibration to isotope dilution-mass spectrometry. Refer to KDIGO guidelines for clinical interpretation. In patients with unstable renal function, e.g. those with acute kidney injury, the eGFRmay not accurately reflect actual GFR.Fasting Kjcexr69 hrsOhio State East HospitalLeuk/Lymph Sign Pathologist (Misc)Reviewed by Kai Bailey MD, Ph.D ([id number])[facility] HospitalNon-HDL Axezxiqnnos890 mg/dL<130 [facility] HospitalComment on above:<130 mg/dL, Optimal 130-159 mg/dL, Near optimal/above optimal 160-189 mg/dL, Borderline high 190-219 mg/dL, High>219 mg/dL, Very highSecondary prevention optimal non HDL Cholesterol levels are recommended to be <100 mg/dLSerum ImmunofixationNo M protein is identified. No M protein is identified.[facility] HospitalProt/Creat Uron 21-17-9036Mwlcclz/Creatinine (U) [Mass ratio]0.07 mg/mgNormal<0.15[facility] on above:Order Comment: Specimen Type: URINE SPECIMEN Ordering Facility: [facility] Address: [address] [place], [place] [address]Result Comment: Adult Proteinuria Categories: <0.15 mg/mg is considered normal to mildly increased 0.15 - 0.50 mg/mg is considered moderately increased >0.50 mg/mg is considered severely increased KDIGO. (2013). KDIGO 2012 Clinical Practice Guideline for the Evaluation and Management of Chronic Kidney Disease. Official Journal of the International Society of Nephrology, 3(1), 1-150.Performed By: #### 2890-2 #### [facility] CLIA [id number] [address] [place] [address] [place] AMERICAProtein/Creatinine (U) [Mass ratio]on 11-46-4105Tumkthqygi (U) [Mass/Vol]70.0 mg/xBTzlbcd24.0-300.0[facility] on above:Order Comment: Specimen Type: URINE SPECIMEN Ordering Facility: [facility] Address: [address] [place], [place] [address]Performed By: #### 2890-2 #### [facility] CLIA [id number] [address] [place] [address] [place] AMERICAProtein (U) [Mass/Vol]5 mg/dLNormal0-20[facility] JacksonComment on above:Order Comment: Specimen Type: URINE SPECIMEN Ordering Facility: [facility] Address: [address] [place], [place] [address]Performed By: #### 2890-2 #### [facility] CLIA [id number] [address] [place] [address] [place] AMERICASerum or plasma anion gap determinationon 52-45-6050Eqqiu gap [Moles/Vol]Serum or plasma anion gap determinationLow8-15[facility] Medical Centererum or plasma total cholesterol/high density lipoprotein (HDL) cholesterol mass vazquez 11-24-2023 Cholesterol.total/Cholesterol in HDL [Mass ratio]Serum or plasma total cholesterol/high density lipoprotein (HDL) cholesterol mass rat<5.10[facility] HospitalUrine protein/creatinine ratioon 11-24-2023 Protein/Creatinine (U) [Ratio]Urine protein/creatinine ratio<0.15[facility] HospitalComment on above:Adult Proteinuria Categories:<0.15 mg/mg is considered normal to mildly increased0.15 - 0.50 mg/mg is considered moderately increased>0.50 mg/mg is considered severely increasedKDIGO. (2013). KDIGO 2012 Clinical Practice Guideline for the Evaluation and Management of Chronic Kidney Disease. Official Journal of the International Society of Nephrology, 3(1), 1-150.CNOVon 55-91-5384ITDFTrjbvo Visit (CARDLAY) CARO [id number]) 1945 M Date Time Provider Department 11/22/23 3:00 PM SURINDER DILLON During your visit today, we recorded the following information about you: Pulse Blood pressure Weight 60/minute 146/60 61.2 kg Surinder Dillon MD 11/22/2023 3:11 PM Signed [facility] Radhika Campbell Department of Cardiovascular Medicine SECTION [...] Now on rosuvastatin lipids improved with Dr. Orellana. Plan: Rosuvastatin 20mg every day , Lisinopril 20mg bid, Amlodipine 2.5mg bid -Re-eval aortic valve disorder in ~ 9 months -Tc-PYP scan and UPEP, KUN, FLC ordered today for amyloid work-up as well as Lp(a) and repeat lipids and BNP/BMP hemodynamics for -Echocardiogram ~ 9 months with follow-up Thank you, CONTACT INFORMATION: Surinder Dillon M.D. Cardiovascular Medicine Staff [facility] Mail Code [id number] [facility] [place] [address] Referring Provider: SURINDER DILLON [[id number]] Allergies As of Date: 11/22/2023 Noted Allergy Reaction DOXYCYCLINE 03/22/2006 11 - Vomiting Date Reviewed: 11/22/2023 Reviewed by: Gianna Guy RN - Fully Assessed Reason for Visit: Established Patient [175] Primary Visit Diagnosis:Nonrheumatic aortic valve stenosis [I35.0] Other Visit Diagnoses:Primary hypertension [I10] Abnormal echocardiogram [R93.1] Order(s):KAPPA/KIMBLE,FREE,SER [SQKLFRS] Order #: [id number] FUTURE IMMUNOFIXATION SCREEN, SERUM [SQIFESC] Order #: [id number] FUTURE MONOCLONAL PROT UR W/INTERP [SQURMPA] Order #: [id number] FUTURE PROTEIN / CREATININE RATIO [SQPRATIO] Order #: [id number] FUTURE NM SPECT/CT CARDIAC AMYLOID [1784655] Order #: [id number] FUTURE LIPID PANEL BASIC [SQLIPB] Order #: [id number] FUTURE ECHO [193328] Order #: [id number]: 1 FUTURE BASIC METABOLIC PANEL [SQBMP] Order #: [id number] FUTURE NT PRO BNP [SQNTBNP] Order #: [id number] FUTURE Prescriptions as of 11/22/2023 - rosuvastatin [...] 11/22/2023 Noted Resolved SENSORN (more content not included)...NormalSub[facility] 41-68-0860TazzgnejsonbilolWnhywyljkbmzmjyp Report: Transthoracic Echo [facility] Date of service: 11/22/2023 1:40:37 PM 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 CARO HECTOR : [...] There is mild concentric left ventricular hypertrophy. Leftventricular systolic function is normal. EF = 58 5% (2D biplane) Grade I left ventricular diastolicdysfunction. - The right ventricle is normal in size. Right ventricular systolic function is normal. - There is moderate aortic valve stenosis caused by calcified valve. AV area is 0.89 cm (0.52 cm /m) by continuity, VTI. The peak gradient is 45 mmHg, the mean gradient is 25 mmHg and the dimensionless valve index is 0.29. Difficult to determine valve morphology due to heavy calcification. - The patient has not had a prior CC echocardiographic exam for comparison. * * * Final * * * CC [employer] [facility] : [id number]t [facility] ClevelandCholesterol in LDL Calc [Mass/Vol]on 08-10-2023 Cholesterol in LDL [Mass/Vol]76.0 mg/dLOhio State East HospitalComment on above:<100 mg/dl DVKEWCD271-017 mg/dl NEAR OR ABOVE JWAGCCW636-698 mg/dl BORDERLINE NEQW621-284 mg/dl HIGH>190 mg/dl VERY HIGHCholesterol in VLDL Calc [Mass/Vol]on 79-56-7430Pdogjspfyxx in VLDL [Mass/Vol]19.2 mg/dLOhio State East HospitalLaboratory - Chemistry and Chemistry - challengeon 30-58-6080Cjhoudrgkni [Mass/Vol]163 mg/dL<=200[facility] Cholesterol in HDL [Mass/Vol]68 mg/bH68-72FxuxhywumOhio State East Hospital Comment on above:> or =60 mg/dl - LOW CARDIOVASCULAR RISK<40 mg/dl - HIGH CARDIOVASCULAR RISKTriglyceride [Mass/Vol]96 mg/dL<=150[facility] Medical Centererum or plasma total cholesterol/high density lipoprotein (HDL) cholesterol mass vazquez 46-42-2040Qxapqybyeem.total/Cholesterol in HDL [Mass ratio]2.4 {ratio}[facility] HospitalComment on above:3.3 - 4.4 LOW RISK4.4 - 7.1 AVERAGE RISK7.1 - 11.0 MODERATE RISK>11.0 HIGH RISKConsent for Treatmenton 92-04-3501Uqulkwm for Treatment [id number]#1.00CD:[address] [place], [place] [address]Insurance Correspondenceon 76-55-4411Zwzzqipyw Correspondence [id number]#1.00CD:[address] [place], [place] [address]Physician Orderon 21-82-9216Lvootcwya Order [id number]#1.00CD:[address] [place], [place] [address]CBC AUTO DIFFon 04-15-2921PYIH #0.1 103/ulNormal0.0-0.1[facility] Hospital - CantonComment on above:Performed By: #### CBC #### [facility] [address] [place] [address] Dr. Jonh Turnerphils/100 WBC (Bld)1.2 %Normal0.2-2.0The [facility] Comment on above:Performed By: #### CBC #### [facility] [address] [place] [address] Dr. Jonh Koenig #0.3 103/ulNormal0.0-0.7The [facility] TroyComment on above: Performed By: #### CBC #### [facility] [address] [place] [address] Dr. Jonh Diamondosinophils/100 WBC (Bld)5.0 %Normal0.9-7.0The [facility] Comment on above:Performed By: #### CBC #### [facility] [address] [place] [address] Dr. Jonh Diamondrythrocyte distribution width (RBC) [Ratio]13.6 %Qjooxo95.0-15.0 The [facility] TroyComment on above:Performed By: #### CBC #### [facility] [address] [place] [address] Dr. Jonh BolivarHematocrit (Bld) [Volume fraction]46.7 %Tpuovt97.0-54.0The [facility] TroyComment on above:Performed By: #### CBC #### [facility] [address] [place] [address] Dr. Jonh BolivarHemoglobin (Bld) [Mass/Vol]15.2 g/eXWpqlud69.0-18.0The [facility] TroyComment on above:Performed By: #### CBC #### [facility] [address] [place] [address] Dr. Jonh Hurtado #0.02 10e3/ulNormal0.00-0.03The [facility] TroyComment on above:Performed By: #### CBC #### [facility] [address] [place] [address] Dr. Jonh Hurtado %0.3 %Normal0.0-0.5The [facility] TroyComment on above: Performed By: #### CBC #### [facility] [address] [place] [address] Dr. Jonh Stark #1.5 103/ulNormal1.2-3.8The [facility] TroyComment on above:Performed By: #### CBC #### [facility] [address] [place] [address] Dr. Jonh Phanmphocytes/100 WBC (Bld)21.4 %Luplrb83.5-60.0The [facility] TroyComment on above:Performed By: #### CBC #### [facility] [address] [place] [address] Dr. Jonh [place] DIFF REQNONormalThe [facility] TroyComment on above: Performed By: #### CBC #### [facility] [address] [place] [address] Dr. Jonh Cameron (RBC) [Entitic mass]29.1 wqDynjxn94.9-34.0The [facility] TroyComment on above:Performed By: #### CBC #### [facility] [address] [place] [address] Dr. Jonh Salguero (RBC) [Mass/Vol]32.5 g/zLTgovbu96.9-35.2The [facility] TroyComment on above:Performed By: #### CBC #### [facility] [address] [place] [address] Dr. Jonh Salguero (RBC) [Entitic vol]89.5 eRGguqtq67.0-94.0The [facility] TroyComment on above:Performed By: #### CBC #### [facility] [address] [place] [address] Dr. Jonh Barry #0.6 103/ulNormal0.3-0.8The [facility] TroyComment on above:Performed By: #### CBC #### [facility] [address] [place] [address] Dr. Jonh Hendricksonocytes/100 WBC (Bld)8.6 %Normal1.7-12.0The [facility] Comment on above:Performed By: #### CBC #### [facility] [address] [place], [place] [address] Dr. Jonh Mcneil #4.3 103/ulNormal1.4-6.5The [facility] TroyComment on above:Performed By: #### CBC #### [facility] [address] [place] [address] Dr. Jonh Woodsutrophils/100 WBC (Bld)63.5 %Cotyax70.0-75.0The [facility] TroyComment on above:Performed By: #### CBC #### [facility] [address] [place] [address] Dr. Jonh BolivarPlatelet mean volume (Bld) [Entitic vol]10.2 fLNormal9.5-13.5The [facility] TroyComselect [facility] on above:Performed By: #### CBC #### [facility] [address] [place] [address] Dr. Jonh KayeT242 103/klIliedz421-270Dzc [facility] TroyComment on above: Performed By: #### CBC #### [facility] [address] [place] [address] Dr. Jonh BolivarRBC5.22 106/ulNormal4.70-6.10The [facility] TroyComselect [facility] on above:Performed By: #### CBC #### [facility] [address] [place] [address] Dr. Jonh BolivarWBC6.8 103/ulNormal4.0-11.0The [facility] TroyComselect [facility] on above: Performed By: #### CBC #### [facility] [address] [place] [address] Dr. Jonh BolivarLIPID PROFILEon 28-76-9094BQNZ-HDL RATIO [facility] CenterComselect [facility] on above:Result Comment: 3.3 - 4.4 LOW RISK 4.4 - 7.1 AVERAGE RISK 7.1 - 11.0 MODERATE RISK >11.0 HIGH RISKPerformed By: #### BMP, ALT, LIPID #### [facility] [address] [place] [address] Dr. Jonh BolivarCholesterol [Mass/Vol]188 mg/dLNormal<=200[facility] Comment on above:Performed By: #### BMP, ALT, LIPID #### [facility] [address] [address] [address] Jonh Byersesterol in HDL [Mass/Vol]60 mg/pTGxxhqp86-08Ibp [facility] TroyComment on above:Performed By: #### BMP, ALT, LIPID #### [facility] [address] [address] [address] Jonh BolivarCholesterol in LDL [Mass/Vol]114.8 mg/dLNoProMedica Flower HospitalComment on above:Performed By: #### BMP, ALT, LIPID #### [facility] [address] [place] [address] Dr. Jonh Vogt.total/Cholesterol in HDL [Mass ratio]3.1 {ratio} NormalThe [facility] TroyComment on above:Performed By: #### BMP, ALT, LIPID #### [facility] [address] [address] [address] Jonh Grossman NORMAL> or = 60 mg/dl - LOW CARDIOVASCULAR RISK <40 mg/dl - HIGH CARDIOVASCULAR RISKHolzer HospitalComment on above:Performed By: #### BMP, ALT, LIPID #### [facility] [address] [place] [address] Dr. Jonh Krishnan CALC NORMALSEE BELOWHolzer HospitalComment on above:Result Comment: <100 mg/dl OPTIMAL 100 - 129 mg/dl NEAR OR ABOVE OPTIMAL 130 - 159 mg/dl BORDERLINE HIGH 160 - 189 mg/dl HIGH >190 mg/dl VERY HIGH Performed By: #### BMP, ALT, LIPID #### [facility] [address] [address] [address] Jonh BolivarTriglyceride [Mass/Vol]66 mg/dLNormal<=150The [facility] Comment on above:Performed By: #### BMP, ALT, LIPID #### [facility] [address] [address] [address] Jonh StubbsLDL CALC13.2 mg/dLNormalThe Yelena HospitalComment on above: Performed By: #### BMP, ALT, LIPID #### [facility] [address] [address] [address] Jonh BolivarPROF CHEM 8 (BAS METB)on 58-87-7815Nspcd gap [Moles/Vol]10.8 mmol/LNormalThe [facility] TroyComment on above:Performed By: #### BMP, ALT, LIPID #### [facility] [address] [address] [address] Jonh BolivarCalcium [Mass/Vol]8.9 mg/dLNormal8.5-10.1The [facility] Comment on above:Performed By: #### BMP, ALT, LIPID #### [facility] [address] [place] [address] Dr. Jonh BolivarChloride [Moles/Vol]103 mmol/KNkyofw99-245Uit [facility] Comment on above:Performed By: #### BMP, ALT, LIPID #### [facility] [address] [place] [address] Dr. Jonh BolivarCO2 [Moles/Vol]28.9 mmol/WTdxcnc50.0-32.0The [facility] Comment on above:Performed By: #### BMP, ALT, LIPID #### [facility] [address] [place] [address] Dr. Jonh BolivarCreatinine [Mass/Vol]0.94 mg/dLNormal0.70-1.30The [facility] TroyComment on above:Performed By: #### BMP, ALT, LIPID #### [facility] [address] [place] [address] Dr. Borja ChangEGFR-AF ESTONIAN>60Normal>=60The [facility] TroyComment on above:Performed By: #### BMP, ALT, LIPID #### [facility] [address] [place] [address] Dr. Jonh DiamondGFR-NON AF ESTONIAN>60Normal>=60The [facility] TroyComment on above:Performed By: #### BMP, ALT, LIPID #### [facility] [address] [address] [address] Jonh BolivarGlucose [Mass/Vol]125 mg/dLCritically shmn43-901Grq [facility] TroyComment on above:Performed By: #### BMP, ALT, LIPID #### [facility] [address] [place] [address] Dr. Jonh BolivarPotassium [Moles/Vol]4.7 mmol/LNormal3.5-5.1The [facility] Comment on above:Performed By: #### BMP, ALT, LIPID #### [facility] [address] [address] [address] Jonh BolivarSodium [Moles/Vol]138 mmol/APagmab498-919Coo [facility] Comment on above:Performed By: #### BMP, ALT, LIPID #### [facility] [address] [place] [address] Dr. Jonh BolivarUrea nitrogen [Mass/Vol]16.0 mg/dLNormal7.0-18.0The [facility] TroyComment on above:Performed By: #### BMP, ALT, LIPID #### [facility] [address] [place] [address] Dr. Jonh Epperson nitrogen/Creatinine [Mass ratio]17.0 mg/mgNormalThe [facility] TroyComment on above:Performed By: #### BMP, ALT, LIPID #### [facility] [address] [place] [address] Dr. Jonh Hidalgo 68-05-4012CKA [Catalytic activity/Vol]23 U/FMyowtq46-88Bwb [facility] TroyComment on above:Performed By: #### BMP, ALT, LIPID #### [facility] [address] [place] [address] Dr. Jonh aKminskiCARCHAI M/2D COMPLETEon 42-51-5159DDUKMVCIZC M/2D COMPLETE Patient: CARO HECTOR Exam Date: 10/13/2021 : 1945 Gender:M Ordering : DR BRAEDEN ORELLANA D.O. Admission #: [id number] Family : Order #: [id number] CLICK HERE TO VIEW EXAM ECHOCARDIOGRAM REPORT [...] by: Isaiah Marie M.D. on 10/13/2021 at 18:05[facility] Vital Signs Date TimeVital SignValuePerforming VnwdjhdqsNqiimfdc29-82-6989 13:56-0400Body cnqcwo899.6 Alondra Dillon MD Work Phone: [facility]06-02-2025 13:56-0400Body mass index (BMI) [Ratio]21.88 kg/c1VjumrSurinder Dillon MD Work Phone: [facility]06-02-2025 13:56-0400Body zawfva16.5 kgSurinder Dillon MD Work Phone: [facility]06-02-2025 13:56-0400Diastolic blood qnyzkwmf82 mm[Hg]Surinder Dillon MD Work Phone: [facility]06-02-2025 13:56-0400Heart rate68 /min Surinder Dillon MD Work Phone: [facility]06-02-2025 13:56-0400Systolic blood tmrgeztz983 mm[Hg]Surinder Dillon MD Work Phone: [facility]05-13-2025 10:10-0400Body gidnxg198.56 [facility]20[facility] 10:10-0400Body mass index (BMI) [Ratio]24.1 kg/f1LfnpgaggoOhio State [facility] Hospital05-13-2025 10:10-0400Body txzaed69.72 [facility]05-13-2025 10:10-0400Diastolic blood kxxhxuzg97 mm[Hg][facility]05-13-2025 10:10-0400 Heart rate83 /[facility]05-13-2025 10:10-0400 Respiratory rate12 /[facility]05-13-2025 10:10-0400 Systolic blood dfimgbzu885 mm[Hg][facility]11-19-2024 14:00-0500Body mutvqq954.56 [facility]11-19-2024 14:00-0500Body mass index (BMI) [Ratio]23.8 kg/d6UzhncpsqxOhio [facility] Hospital11-19-2024 14:00-0500Body .82 kg[facility] 01-24-2024 14:00-0500Diastolic blood bcqsdmna32 mm[Hg][facility]11-19-2024 14:00-0500Heart rate76 /[facility] 01-24-2024 14:00-0500Respiratory rate12 /[facility] 01-24-2024 14:00-0500Systolic blood bmkdfqap088 mm[Hg][facility]09-17-2024 14:50-0400Body pekdxa23.2 kgSurinder Dillon MD Work Phone: [facility]09-17-2024 14:50-0400Diastolic blood qmctuyue65 mm[Hg]Surinder Dillon MD Work Phone: [facility]09-17-2024 14:50-0400Heart rate60 /min Surinder Dillon MD Work Phone: [facility]09-17-2024 14:50-9547OpM3% (BldA) [Mass fraction]98 %Surinder Dillon MD Work Phone: [facility]09-17-2024 14:50-0400Systolic blood dzubepxw111 mm[Hg]Surinder Dillon MD Work Phone: [facility]06-17-2024 13:39-0400Body cvoxfd188.56 cm[facility]06-17-2024 13:39-0400Body mass index (BMI) [Ratio]23.1 kg/s1MidvswehtOhio State East Hospital06-17-2024 13:39-0400Body ecirdx45.29 kgOhio [facility] Hospital06-17-2024 13:39-0400Diastolic blood hovhsdfj94 mm[Hg][facility]06-17-2024 13:39-0400 Heart rate85 /[facility]06-17-2024 13:39-0400 Respiratory rate16 /[facility]06-17-2024 13:39-0400 Systolic blood dkgcdolj710 mm[Hg][facility]04-09-2024 09:46-0400Body awyfqj151.56 cmOhio [facility]04-09-2024 09:46-0400Body mass index (BMI) [Ratio]23.9 kg/u8QuxqwxyxiOhio State [facility] Hospital04-09-2024 09:46-0400Body tympwt23.21 kg[facility] 06-14-2023 09:46-0400Diastolic blood ledhphni67 mm[Hg][facility]04-09-2024 09:46-0400Heart rate80 /minOhio State East Hospital 06-14-2023 09:46-0400Respiratory rate12 /[facility] 06-14-2023 09:46-0400Systolic blood ibzlgqgf809 mm[Hg][facility]02-20-2024 12:59-0500Body .4 kgSurinder Dillon MD Work Phone: [facility]02-20-2024 12:59-0500Diastolic blood odisbjeq22 mm[Hg]Surinder Dillon MD Work Phone: [facility]02-20-2024 12:59-0500Heart rate77 /min Surinder Dillon MD Work Phone: [facility]02-20-2024 12:59-0500Systolic blood fejdafua514 mm[Hg]Surinder Dillon MD Work Phone: [facility]10-31-2023 09:09-0400Body dwirwe377.56 cmBenjamin Ball Other [employer] Other 10-09-2023 10:00-0400Body .56 cmBenjamin Ball Other [employer] Other 10-09-2023 10:00-0400Body mass index (BMI) [Ratio] 23.86 kg/z8Figonomt Ball Other [employer] Other 10-09-2023 10:00-0400Body fhzcqa85.05 kgBenjamin Ball Other [employer] Other 10-09-2023 10:00-0400Diastolic blood vhsftosk13 mm[Hg] Braeden Ball Other [employer] Other 10-09-2023 10:00-0400Respiratory rate12 /minBenjamin Ball Other [facility] [employer] Other 10-09-2023 10:00-0400Systolic blood dltnrehu565 mm[Hg] Braeden Ball Other [facility] [employer] Other 04-19-2023 11:00-0400Body koqhxh023.56 cmBenjamin Ball Other [employer] Other 04-19-2023 11:00-0400Body mass index (BMI) [Ratio] 24.51 kg/r8Elqbhiow Ball Other [employer] Other 04-19-2023 11:00-0400Body .77 kgBenjamin Ball Other [employer] Other 04-19-2023 11:00-0400Diastolic blood odwuvtbf66 mm[Hg] Braeden Ball Other [employer] Other 04-19-2023 11:00-0400Respiratory rate12 /minBenjamin Ball Other [employer] Other 04-19-2023 11:00-0400Systolic blood bsewsoly503 mm[Hg] Braeden Ball Other [employer] Other Encounters Encounter DateEncounter [facility] ProviderFacilityStart: 08-06-2024 End: 19-81-1149Pohtqi outpatient visit 25 minutesSurinder Dillon MD Work Phone: CardiologyComment on above:Nonrheumatic aortic valve stenosis (Primary Dx); Primary hypertensionStart: 08-06-2024 End: 76-64-3816jjvsdlsaxlKXVGR PATTISAPUFacility:[facility]art: 07-17-2024 End: 06-34-6140otcbcqqtzwRknhndvvfCherrington Hospital Work Phone: Start: 07-17-2024 End: 58-60-1193Gqiymdl encounter procedureReplaced By [facility] Work Phone: Start: 03-13-2024 End: 49-01-1318Krwrhe [employer]Nely Reed ChemiSensemarlys DO Work Phone: noms OPHTStart: 03-13-2024 End: 77-72-2138Xahvym [employer] Brianna ChemiSensemarlys DO Work Phone: noms OPHTStart: 03-13-2024 End: 67-07-3549ZshhmpTrrucaj Leahyannalee HERNANDEZMER[facility] OPHTStart: 01-24-2024 End: 24-46-6107zwjdjreipnKlqstbjokMarion Hospital Work Phone: Start: 01-24-2024 End: 01-77-3223Jdolnoz encounter procedureReplaced By [facility] Work Phone: Start: 05-78-4610Lhskksd encounter procedureMetroHealth Main Campus Medical Centertart: 30-51-2171Uyh-patient / Non-visitReplaced By [facility] Work Phone: Start: 14-31-3953Tvj-patient / Non-visitReplaced By [facility] Work Phone: Start: 25-52-9609qbcbsxxuxzGQLOWChucho DILLON [facility]: 12-02-2023 End: 43-43-3729Lpxiaiigqu hospital visit by physicianMfi Injection [facility] RADIO [facility] HOSPComment on above:Nonrheumatic aortic valve stenosis [I35.0]Start: 12-01-2023 End: 73-89-6252Tsmxmmgjv encounterSurinder Dillon MD Work Phone: CardiologyComment on above:Fax over Records to PCP Start: 08-95-5540Krb-patient / Non-visitFirmountain view regional [facility] Work Phone: Start: 11-24-2023 End: 42-02-4987qkjwkkptwhLMWKS PATTISAPUFacility:[facility] Hospitaltart: 11-22-2023 End: 22-63-5537Qixgmjq encounter Beverly Dillon MD Work Phone: CardiologyComment on above:Nonrheumatic aortic valve stenosis (Primary Dx); Primary hypertension; Abnormal echocardiogramStart: 11-22-2023 End: 16-55-4044aicncatlmoKNVZY PATTISAPUFacility:[facility] Hospitaltart: 08-22-2023 End: 55-87-6821ypmexcxyjhPbaoedljjCherrington Hospital Work Phone: Start: 08-22-2023 End: 24-62-6516Gjxsfzv encounter procedureReplaced By [facility] Work Phone: Start: 08-41-1757Ljq-patient / Non-visitReplaced By [facility] Work Phone: Start: 54-98-7602Ytp-patient / Non-visitFireveretts Physician Group-[facility] Work Phone: Start: 06-14-2023 End: 66-19-4417nsfvrvrymiFtudpynbaCherrington Hospital Work Phone: Start: 06-14-2023 End: 24-21-6138Enpkqxe encounter procedureFireveretts Physician Group-[facility] Work Phone: Start: 04-26-2023 End: 81-15-8965Qnreyoc encounter Beverly Dillon MD Work Phone: CardiologyComment on above:Nonrheumatic aortic valve stenosis (Primary Dx)Start: 02-14-2023 End: 20-84-0039hinpcgflrzFbphnlqc Ball Other [employer] Other Start: 55-83-4273Garolxnwd encounterBenjamin BallFPG Referral CoordinatorStart: 38-77-4366Fpfilnolj encounterJanes Barnes MD Work Phone: CardiologyComment on above:AppointmentStart: 01-31-2023 End: 73-04-6753brppcnnwjdQddlqydc Ball Other [employer] Other Start: 15-48-6499Tvlnaipao encounterBenjamin BallFPG [facility] ClinicStart: 80-02-0947Qgvdreesz encounterNo Pcp APRNReferring PhysicianComment on above:External Referrals/resourcesStart: 01-10-2023 End: 69-31-4883eqwdgqrvtkNjuymzly Ball Other [employer] Other Start: 28-44-2708Etdywrsct encounterBenjamin BallFPG [facility] ClinicStart: 01-04-2023 End: 14-71-8430jymjnmhzhdRpxlehwe Ball Other [employer] Other Start: 18-63-0559Bwhhydvzc encounterBenjamin BallFPG [facility] ClinicStart: 12-13-2022 End: 79-24-2860qxihlvvykaXqsefqar Ball Other [employer] Other Start: 29-39-0995Lctlhah encounter procedureBenjamin BallFPG [facility] ClinicStart: 81-80-2639Cqfttwajl encounterBenjamin BallFPG [facility] ClinicStart: 12-03-2022 End: 23-54-6311eomtkgaqfvXottrtsk Ball Other [employer] Other Start: 76-34-4538Prwqqobkn encounterBenjamin BallFPG [facility] ClinicStart: 11-24-2022 End: 86-92-1539snkwbqlxmfChnztbri Ball Other [employer] Other Start: 27-44-3925Tereqwnwf encounterBenjamin BallFPG [facility] ClinicStart: 11-22-2022 End: 75-76-7893gqoogvaqeiPafalt J NEWTONFacility:FTMCStart: 11-22-2022 End: 37-94-3912Dcrikda encounter procedureBENJAMIN BALL [facility] Start: 11-09-2022 End: 12-74-7583psduahmetkNchvlgey Ball Other [facility] [employer] Other Start: 25-15-5929Rxiuxauyy encounterBenjamin BallFPG [facility] ClinicStart: 06-23-2022 End: 61-49-3179zoenaltyudEawslver Ball Other [facility] [employer] Other Start: 92-40-5653Okophj outpatient visit 15 minutes Braeden BallFPG [facility] ClinicStart: 05-03-2022 End: 50-45-2286fwqimiylgrKnlpybmr Ball Other [facility] [employer] Other Start: 07-14-1607Uceglydsk encounterBenjamin BallFPG [facility] ClinicStart: 41-10-7173Ljmzf health examinationBenjamin Ball Other [employer] Other Start: 12-08-2021 End: 08-57-4012qcpqfarrgsNY BRAEDEN BALLFacility:P9Gxqvr: 10-13-2021 End: 91-92-2036zfrohiyimlAS BRAEDEN BALLFacility:E5Mkcql: 06-21-2017 End: 50-45-2209PgbkzyqgksIGGKZDQ PHYSICIANFacility:[facility] Procedures DateProcedureProcedure DetailPerforming ClinicianStart: 71-73-0492Evd bmtry prtl coher intrfrmtry io lens pwr calNely Reed Abdulazizmarlys DO Work Phone: Start: 03-13-2024 End: 77-64-7697Msvbj medical xm&eval compre new pt 1/> vstAge-related nuclear cataract of right eyeNely Reed Galijody DO Work Phone: comment on above:Age-related nuclear cataract of right eye (Primary Dx)Start: 21-40-8216Vp loclzj carmen spect w/ct 1 area 1 day imaging Surinder Dillon MD Work Phone: Start: 81-35-4990SOH screeningDR BRAEDEN BALLComment on above:Performed By: #### PSASC #### [facility] [address] [place] [address] Dr. Jonh BolivarStart: 19-02-3738Rsmrwahbk cataract xtrj insj io lens prsth 1 stg BRAEDEN BALL Start: 32-40-2282Nzeasekni for malignant neoplasm of colonBenjamin Ball Other Start: 32-04-1461Eiubivif mellitus screeningBenjamin Ball Other Start: 19-63-1264Dvwjwczzeajeoh screeningBenjamin Ball Other Start: 84-28-2640Zsovtenbw for malignant neoplasm of prostateBenjamin Ball Other Depression screeningBenjamin Ball Other Screening for malignant neoplasm of prostateBenjamin Ball Other TonsillectomyBENJAMIN BALL Plan of Treatment DateCare ActivityDetailAuthorStart: 41-04-4820Uzmem microalbumin profile DTaP,Tdap,Td Vaccine (2 - Tdap)[facility]: 52-39-0499Hmxxoarm ScreeningDiabetes ScreeningC[facility] Clinic Lutheran Hospitaltart: 03-12-2025 End: 23-32-4313Ivedoan encounter jrhesmtjo12/06/2026 1:00 PM EST Office Visit Cardiology [address] [place] [address] [place] [address] [place] [address] Return in about 7 months (around 03/08/2025).Cardiology Comment on above:Return in about 7 months (around 03/08/2025).Start: 11-05-2024 Influenza vaccinationInfluenza Vaccine (Season Ended)[facility]art: 08-13-2024 End: 36-50-2238Zxvssvn encounter procedureCardiologyComment on above:echo Schedule echocardiogram same day as f/up with me in ~ 9 monthsStart: 03-13-2024 End: 46-30-5429Uvtexif encounter csmtfyaem78/07/2025 10:45 AM EST Office Visit [facility] [address] [place] [id number] Nely Nelson DO [address] [place] [address] ArrivedNOMS NB OPHTComment on above:ArrivedStart: 07-34-2414Lbsqnch Directive DiscussionAdvance Directive DiscussionCleveland Clinic Lutheran Hospitaltart: 12-02-2023 End: 44-14-4664Yywifiq encounter procedureRADIO AGATA RODRIGUEZSELECT MEDICAL SPECIALTY HOSPITAL - TRUMBULL HOSPComment on above:Weight 140 / Patient not Diabetic / Order in EPIC // DX: Nonrheumatic aortic valve stenosis [I35.0]Start: 11-24-2023 End: 05-14-3234lpxvbtnbtr44/19/2024 8:30 AM EDT Results Only [facility] [address] [place] [address] Nonrheumatic aortic valve stenosis [I35.0][facility] LaboratoryComment on above:Nonrheumatic aortic valve stenosis [I35.0]Start: 11-22-2023 End: 21-97-4961Qvcqs metabolic 2000 panel - Serum or PlasmaBASIC METABOLIC PANEL Lab Routine Nonrheumatic aortic valve stenosis Primary hypertension Abnormal e chocardiogram Expected: 11/22/2023, Expires: 02/21/2024leveland ClinicComment on above:Expected: 11/22/2023, Expires: 02/21/2024Start: 11-22-2023 End: 24-06-6088SRKDZANCRRXSDJ SCREEN, SERUMIMMUNOFIXATION SCREEN, SERUM Lab Routine Nonrheumatic aortic valve stenosis Primary hypertension Abnormal echocardiogram Expected: 11/22/2023, Expires: 02/21/2024leveland ClinicComment on above:Expected: 11/22/2023, Expires: 02/21/2024Start: 11-22-2023 End: 39-57-5827OAHYC/KIMBLE,FREE,SERKAPPA/KIMBLE,FREE,SER Lab Routine Nonrheumatic aortic valve stenosis Primary hypertension Abnormal echocardiogram Expected: 11/22/2023, Expires: 02/21/2024[facility] Work Phone: Comment on above:Expected: 11/22/2023, Expires: 02/21/2024Start: 11-22-2023 End: 18-91-0036Iuaot 1996 panel - Serum or PlasmaLIPID PANEL BASIC Lab Routine Nonrheumatic aortic valve stenosis Primary hypertension Expected: 11/22/2023, Expires: 02/21/2024leveland ClinicComment on above:Expected: 11/22/2023, Expires: 02/21/2024Start: 11-22-2023 End: 37-67-4223URUIYZQRLG PROT UR W/INTERPMONOCLONAL PROT UR W/INTERP Lab Routine Nonrheumatic aortic valve stenosis Primary hypertension Abnormal echocardiogram Expected: 11/22/2023, Expires: 02/21/2024leveland ClinicComment on above:Expected: 11/22/2023, Expires: 02/21/2024Start: 11-22-2023 End: 27-30-1098Rvwkgbhbpiu peptide.B prohormone N-Terminal [Mass/volume] in Serum or PlasmaNT PRO BNP Lab Routine Nonrheumatic aortic valve stenosis Primary hypertension Abnormal echocardiogram Expected: 11/22/2023, Expires: 02/21/2024 [facility]Comment on above:Expected: 11/22/2023, Expires: 02/21/2024Start: 11-22-2023 End: 97-91-9357Usprtay/Creatinine [Mass Ratio] in UrinePROTEIN / CREATININE RATIO Lab Routine Nonrheumatic aortic valve stenosis Primary hypertension Abnor mal echocardiogram Expected: 11/22/2023, Expires: 02/21/2024[facility] Comment on above:Expected: 11/22/2023, Expires: 02/21/2024Start: 11-06-2023 Covid-19 Vaccine ( season)Covid-19 Vaccine () [facility]: 67-94-2478Omlou-19 Vaccine ( season)Covid-19 Vaccine ( season)[facility]: 06-97-7109Iyjkqboxx vaccinationInfluenza Vaccine (#1)[facility]: 13-72-7995Taqtybt Directive DiscussionAdvance Directive DiscussionC[facility] Clinic Luther[facility] Hospitaltart: 00-82-4616Wjzngxkuxi AssessmentDepression AssessmentC[facility] Clinic Luther[facility] Hospitaltart: 43-61-8786Phuxj-19 Vaccine ( season)Covid-19 Vaccine ( season)[facility]: 34-05-9077Tlgso-19 Vaccine () Covid-19 Vaccine ()[facility]: 87-15-2898Mduaskgls vaccinationInfluenza Vaccine (#1)[facility]: 21-86-1277VTY Vaccine (1 - 1-dose 75+ series)RSV Vaccine (1 - 1-dose 75+ series)[facility]: 39-11-0567Zxakbbx Directive DiscussionAdvance Directive DiscussionCleveland Clinic Union Hospitalrt: 77-26-4360Mscaiwyzix AssessmentDepression AssessmentC[facility] Clinic [facility] Hospitaltart: 54-95-3604Mjatocdd ScreeningDiabetes ScreeningPremier Health [facility] Start: 68-10-4221RQF Vaccine (1 - 1-dose 60+ series)RSV Vaccine (1 - 1-dose 60+ series)[facility]: 75-12-8026Btmmvwef Vaccine (1 of 2)Shingrix Vaccine (1 of 2)[facility]: 43-40-7052Rwrsnsetc (FIT-DNA)Cologuard (FIT-DNA)[facility]: 54-01-8183BpqcokywiddExdphnljubbVmkpgyolv Clinic Start: 23-98-2582Ikaaerlnzg Cancer ScreeningColorectal Cancer ScreeningC[facility] Clinic Luther[facility] Hospitaltart: 47-93-5521VF ColonographyCT ColonographyC[facility] Clinic Luther[facility] Hospitaltart: 25-72-3249Hqmxh Occult BloodFecal Occult BloodC[facility] Clinic Luther[facility] Hospitaltart: 07-15-1992 Screening for malignant neoplasm of colonC[facility] Clinic Luther[facility] Hospitaltart: 07-15-1992 SigmoidoscopySigmoidoscopyC[facility] Clinic [facility] Hospitaltart: 67-70-0256Pglfn 1996 panel - Serum or PlasmaLipid ScreeningC[facility] Clinic Luther[facility] Hospitaltart: 36-84-7709Wyost panelLipid ScreeningC[facility] Clinic Luther[facility] Hospitaltart: 02-38-2154Rwjam microalbumin profileDTaP,Tdap,Td Vaccine (1 - Tdap)[facility]: 63-58-0092Jsyabn PCP Team Chronic Disease VisitAnnual PCP Team Chronic Disease VisitCleveland Clinic Lutheran Hospitaltart: 61-06-3903Qwdhjff ScreeningAnxiety ScreeningC[facility] Clinic Luther[facility] Hospitaltart: 29-56-8548SV Controlled (<130/80)BP Controlled (<130/80)[facility]: [birth year]15[birth year]1965 Depression ScreeningDepression ScreeningC[facility] Clinic Luther[facility] Hospitaltart: 07[birth year]15-1965 Hepatitis C ScreeningHepatitis C ScreeningC[facility] Clinic Lutheran Hospitaltart: 07[birth year]15-1963 Hepatitis C screeningHepatitis C ScreeningPremier Health [facility] NorthECG COMPLETEECG COMPLETE ECG Routine Nonrheumatic aortic valve stenosis Ordered: 04/26/2023 [facility] Work Phone: Comment on above:Ordered: 04/26/2023ECG COMPLETEECG COMPLETE ECG Routine Nonrheumatic aortic valve stenosis Primary hypertension Ordered: 5C[facility] Work Phone: Comment on above:Ordered: 08/06/2024 End: 53-46-2498QdjigpfiegyxwtpcURWV Cardiology Routine Nonrheumatic aortic valve stenosis 1 Occurrences starting 04/26/2023 until 04/26/2024[facility] Work Phone: Comment on above:1 Occurrences starting 04/26/2023 until 04/26/2024 End: 48-41-1174KsakqgqoogpbewfkCHIP Cardiology Routine Nonrheumatic aortic valve stenosis Primary hypertension Abnormal echocardiogram 1 Occurrences starting 11/22/2023 until 11/21/2024[facility]Comment on above:1 Occurrences starting 11/22/2023 until 11/21/2024 End: 95-63-3067EEECJ Heart for infarct W Tc-99m PYP IVNM SPECT/CT CARDIAC AMYLOID Radiology Routine Nonrheumatic aortic valve stenosis Primary hypertensio n Abnormal echocardiogram 1 Occurrences starting 11/22/2023 until 12/21/2024 [facility] NorthComment on above:1 Occurrences starting 11/22/2023 until 12/21/2024XR Chest 2 [facility] Immunizations Immunization DateImmunizationNotesCare LjhdyanzEsyhyaqz38-58-1816djyjpxbqa virus vaccine, unspecified formulation[facility]10-09-2023 influenza, high dose seasonal, preservative-freeBraeden Orellana Other [employer] Other [id number] virus vaccine, split virus (incl. purified surface antigen)Braeden Orellana Other [employer] Other [id number] virus vaccine, unspecified formulationOhio [facility] Hospital09-27-2021influenza virus vaccine, split virus (incl. purified surface antigen)Braeden Orellana Other [employer] Other [id number] virus vaccine, unspecified formulationOhio State [facility] Hospital10-08-2020influenza virus vaccine, split virus (incl. purified surface antigen)Braeden Orellana Other [employer] Other [id number] virus vaccine, unspecified formulationOhio [facility] Hospital10-23-2019influenza virus vaccine, split virus (incl. purified surface antigen)Braeden Orellana Other [employer] Other [id number] virus vaccine, unspecified formulationOhio State East Hospital04-17-2019pneumococcal polysaccharide vaccine, 23 valentBenchuyita Orellana Other [facility]10-17-2018influenza virus vaccine, split virus (incl. purified surface antigen)Braeden Orellana Other [facility] [employer] Other [id number] virus vaccine, unspecified formulationNo Pcp [facility]04-09-2018diphtheria, tetanus toxoids and acellular pertussis vaccine, unspecified formulationBenchuyita Orellana Other [facility]04-09-2018 pneumococcal conjugate vaccine, 13 valentBenchuyita Reyna Other [facility] Payers DatePayer CategoryPayerPolicy ID2018Medicare (Managed Care) [id number] Social History DateTypeDetailFaclarinda regional health centerStart: 12-09-2020 End: [id number] [facility] At [facility] Main Campustart: 11-14-2019 End: 00-31-3292Jmvhend smoking statusEx-smoker (finding)[facility] End: 66-39-1454Ygaitgx of tobacco useCurrent smokerCleveland Clinic Lutheran Hospitaltart: 03-10-1960 End: 51-84-9626Hvpqqih of tobacco useCigarette SmokerCleveland Clinic Lutheran Hospitaltart: 03-16-2006 End: 69-32-4498Msdkgcf intakeCurrent drinker of alcohol (finding)[facility]: 03-16-2006 End: 40-94-2864Kkekjvc intakePremier Health Miami Valley Hospital NorthNational Score (1-100), lower number is lower riskNot on [facility] Foundationtart: 39-45-0935Chs Assigned At [facility]Not on [facility] Foundationtart: 18-43-8381Tgryqao CommentoccCleveland Clinic Lutheran Hospitaltart: 03-26-5931Mgx Assigned At [facility] HospitalTobacco smoking status NHISUnknown if ever smokedCedar County Memorial HospitalStart: 01-24-2024 End: 46-14-9804FyyPfub (finding)[facility] Clinical Notes 06-23-2022 to 08-06-2024 Note Date & [id number] History of Present illness Narrative* Surinder Dillon MD - 08/06/2024 2:00 PM EDT Images from the original note were not included. [facility] Department of Cardiovascular Medicine SECTION OF CARDIOLOGY OUTPATIENT VISIT DATE 08/06/2024 OUTPATIENT VISIT TYPE Established CHIEF COMPLAINT: CV HISTORY OF PRESENT ILLNESS: Mr. Hector is a pleasant 79 year old male here for cardiovascular follow-up. Initial consultation 04/26/2023. Symptom-adames, BP at home 112-132/DBP 58-72 No CP/dyspnea/leg swelling/major bleeding. CURRENT MEDICATIONS: gabapentin (NEURONTIN) 300 mg capsule Take 300 mg by mouth daily at bedtime. rosuvastatin (CRESTOR) 20 mg tablet Take 20 mg by mouth once daily. amLODIPine (NORVASC) 2.5 mg tablet Take 2.5 mg by mouth twice daily. lisinopril (ZESTRIL, PRINIVIL) 20 mg tablet Take 20 mg by mouth twice daily. pramipexole (MIRAPEX) 0.25 mg tablet TAKE 1 & 1 2 (ONE HALF) TABLET BY MOUTH ONCE DAILY IN THE EVENING I have personally interviewed, confirmed and edited the above information if obtained by others. Physical Exam BP 142/67 (BP Site: Left Arm, BP Position: Sitting, BP Cuff Size: Regular Adult) Pulse 68 Ht 167.6 cm (5' 6 ) Wt 61.5 kg (135 lb 9.3 oz) BMI 21.88 kg/m Gen: alert, no acute distress, with HEENT: normocephalic, atraumatic, no rinorrhea, no congestion, normal hearing, EOMI, no eye discharge Heart: 3/6 mid peaking systolic murmur, S1/S2+, regular rate and rhythm Lungs: no wheezing, no rales, symmetric expansion, nonlabored Abdomen: soft, nontender, nondistended Musculoskeletal: no edema, nontender Neurological: no focal deficits, alert, oriented Psychatric: cooperative, appropriate Last 20 Encounter BP Readings: Date: BP: 08/06/2024 142/67 11/22/2023 146/60 04/26/2023 160/76 12/09/2020 144/74 03/16/2006 134/91] Pertinent Diagnostics/Labs/Data reviewed (ECGs and echo listed personally reviewed today or prior) and include: 12/02/2023 Tc-PYP Scan: not consistent with TTR TTE 08/06/2024: LVEF 65%, mild LVH, sinus 3.8cm, mild chordal PADMINI; normal LA/RA size, normal RVSF/size, G1DD (Mitral E 50cm/s), 1+ AR, negative apical sparring pattern, AV Peak V 3.49m/s, AV mean 29mmHg, DVI 0.29, RENETTA 0.91cm2, TTE 11/22/2023: LVEF ~65%, mild LVH, , G1DD, low-normal LA pressures, normal LA/RA size, 1+ AR, Moderate aortic stenosis: AV peak V 3.34m/s, AV mean 25mmHg, DVI 0.29, RENETTA 0.89cm2, relative regional strain 0.7 some apical sparring pattern TTE report only 11/22/2022: LVEF 60-65%, normal LA/RA size, normal RVSF; mod , mild AI, trileafletAV - RENETTA 1.5cm2, 08/06/2024 ECG: NSR, nonspecific ST changes, normal HI/QT interval 04/26/23 ECG: NSR, cannot exclude septal infarct pattern; nonspecific ST changes Nt ProBNP 11/24/2023: 122 11/24/2023: TC 167, TG 100, HDL 67, LDL 80, K/L 1.22, UMPA negative 12/04/2022: LDL 110, HDL 75, TG 65 Assessment & Plan Aortic Stenosis - mostly moderate aortic stenosis, RENETTA in severe range visually restricted; mild-mod calcified Other: HTN, HLD, OA, minimal smoking in past as teenager, other Impression: New to me 04/26/2023: BP at home per their report; active lifestyle; continue lovastatin; discussed AV, suspect mild-moderate. 11/22/2023: BP at home better. Increase water hydration. Reviewed echocardiogram. Borderline apical sparring. Now on rosuvastatin lipids improved with Dr. Orellana. TC-PYP scan, Lp(a), lipids, BMP/BNP forvalve hemodynamic changes. 08/07/2024: mild increase in peak AV velocity but DVI similar. BP at home better. Plan: Rosuvastatin 20mg every day , Lisinopril 20mg bid, Amlodipine 2.5mg bid Increase water hydration based on inflows RTC ~ 7 months, can repeat echo after that Thank you, CONTACT INFORMATION: Surinder Dillon M.D. Cardiovascular Medicine Staff [facility] Mail Code [id number] [facility] [place] [address] documented in this encounterPremier Health Miami Valley Hospital North06-02-2025 NoteHNO ID: [id number] Author: SURINDER DILLON MD Service: ? Author Type: Physician Type: Progress Notes Filed: 08/06/2024 14:15 Note Text: [facility] Department of Cardiovascular Medicine SECTION OF CARDIOLOGY OUTPATIENT VISIT DATE 08/06/2024 OUTPATIENT VISIT TYPE Established CHIEF COMPLAINT: CV HISTORY OF PRESENT ILLNESS: Mr. Hector is a pleasant 79 year old male here for cardiovascular follow-up. Initial consultation 04/26/2023. Symptom-adames, BP at home 112-132/DBP 58-72 No CP/dyspnea/leg swelling/major bleeding. CURRENT MEDICATIONS: gabapentin (NEURONTIN) 300 mg capsule Take 300 mg by mouth daily at bedtime. rosuvastatin (CRESTOR) 20 mg tablet Take 20 mg by mouth once daily. amLODIPine (NORVASC) 2.5 mg tablet Take 2.5 mg by mouth twice daily. lisinopril (ZESTRIL, PRINIVIL) 20 mg tablet Take 20 mg by mouth twice daily. pramipexole (MIRAPEX) 0.25 mg tablet TAKE 1 AND 1 2 (ONE HALF) TABLET BY MOUTH ONCE DAILY IN THE EVENING I have personally interviewed, confirmed and edited the above information if obtained by others. Physical Exam BP 142/67 (BP Site: Left Arm, BP Position: Sitting, BP Cuff Size: Regular Adult) Pulse 68 Ht 167.6 cm (5' 6 ) Wt 61.5 kg (135 lb 9.3 oz) BMI 21.88 kg/m? Gen: alert, no acute distress, with HEENT: normocephalic, atraumatic, no rinorrhea, no congestion, normal hearing, EOMI, no eye discharge Heart: 3/6 mid peaking systolic murmur, S1/S2+, regular rate and rhythm Lungs: no wheezing, no rales, symmetric expansion, nonlabored Abdomen: soft, nontender, nondistended Musculoskeletal: no edema, nontender Neurological: no focal deficits, alert, oriented Psychatric: cooperative, appropriate Last 20 Encounter BP Readings: Date: BP: 08/06/2024 142/67 11/22/2023 146/60 04/26/2023 160/76 12/09/2020 144/74 03/16/2006 134/91] Pertinent Diagnostics/Labs/Data reviewed (ECGs and echo listed personally reviewed today or prior) and include: 12/02/2023 Tc-PYP Scan: not consistent with TTR TTE 08/06/2024: LVEF 65%, mild LVH, sinus 3.8cm, mild chordal PADMINI; normal LA/RA size, normal RVSF/size, G1DD (Mitral E 50cm/s), 1+ AR, negative apical sparring pattern, AV Peak V 3.49m/s, AV mean 29mmHg, DVI 0.29, RENETTA 0.91cm2, TTE 11/22/2023: LVEF ~65%, mild LVH, , G1DD, low-normal LA pressures, normal LA/RA size, 1+ AR, Moderate aortic stenosis: AV peak V 3.34m/s, AV mean 25mmHg, DVI 0.29, RENETTA 0.89cm2, relative regional strain 0.7 some apical sparring pattern TTE report only 11/22/2022: LVEF 60-65%, normal LA/RA size, normal RVSF; mod , mild AI, trileaflet AV - RENETTA 1.5cm2, 08/06/2024 ECG: NSR, nonspecific ST changes, normal HI/QT interval 04/26/23 ECG: NSR, cannot exclude septal infarct pattern; nonspecific ST changes Nt ProBNP 11/24/2023: 122 11/24/2023: TC 167, TG 100, HDL 67, LDL 80, K/L 1.22, UMPA negative 12/04/2022: LDL 110, HDL 75, TG 65 Assessment AND Plan Aortic Stenosis - mostly moderate aortic stenosis, RENETTA in severe range visually restricted; mild-mod calcified Other: HTN, HLD, OA, minimal smoking in past as teenager, other Impression: New to me 04/26/2023: BP at home per their report; active lifestyle; continue lovastatin; discussed AV, suspect mild-moderate. 11/22/2023: BP at home better. Increase water hydration. Reviewed echocardiogram. Borderline apical sparring. Now on rosuvastatin lipids improved with Dr. Orellana. TC-PYP scan, Lp(a), lipids, BMP/BNP for valve hemodynamic changes. 08/07/2024: mild increase in peak AV velocity but DVI similar. BP at home better. Plan: Rosuvastatin 20mg every day , Lisinopril 20mg bid, Amlodipine 2.5mg bid Increase water hydration based on inflows RTC ~ 7 months, can repeat echo after that Thank you, CONTACT INFORMATION: Surinder Dillon M.D. Cardiovascular Medicine Staff Jonathan GillespieMatilde [facility] Mail Code [id number] [facility] [place] [address] [facility]Hol[facility]01-07-2025 History of Present illness Narrative* Nely Nelson, - 03/13/2024 10:45 AM EST Subjective Patient ID: Caro Hector is a 78 y.o. male. Chief Complaint Cataract HPI Cataract In right eye. Associated symptoms include blurred vision, glare, haloes, starburst and a need for brighter lights. Severity is moderate. Onset was gradual. Duration of 6 months. Frequency is constant. Context: distance vision, mid-range vision, near vision, reading, watching TV, computer work, driving, night driving and dim lighting. Since onset it is gradually worsening. Affected activities include reading, working on the computer, driving, night driving, watching TV and daily activities. Treatments tried include glasses. Response to treatment was no improvement. Comments Pt was referred by Dr. Sullivan for cataract Evaluation right eye (OD) only. Left eye (OS) cataract extraction (CE)was preformed by Dr. Nelson in 2019 No pain, dryness, vision has declined right eye (OD), seeing occasional floaters, seeing glare, light sensitivity, using OTC drops (gtts) PRN. -latex -pm.df -flomax Last edited by CURTIS Rodriguez on 03/13/2024 11:48 AM. Current Outpatient Medications (Ophthalmic Agents) Medication Sig Dispense Refill ketorolac (Acular) 0.5 % ophthalmic solution Administer 1 drop into affected eye(s) in the morning and 1 drop before bedtime. 5 mL 1 ofloxacin (Ocuflox) 0.3 % ophthalmic solution Administer 1 drop into affected eye(s) 5 (five) timesa day for 1 day Starting 1 day before surgery, continue after surgery as directed 5 mL 1 prednisoLONE acetate (Pred-Forte) 1 % ophthalmic suspension Administer 1 drop into affected eye(s) in the morning and 1 drop at noon and 1 drop in the evening and 1 drop before bedtime. Do all this for 14 days. 5 mL 1 No current facility-administered medications for this visit. (Ophthalmic Agents) Current Outpatient Medications (Other) Medication Sig Dispense Refill amLODIPine (Norvasc) 2.5 MG tablet Take 2.5 mg by mouth in the morning and 2.5 mg before bedtime. lisinopril 20 MG tablet Take 20 mg by mouth in the morning and 20 mg before bedtime. pramipexole (Mirapex) 0.5 MG tablet Take 0.5 mg by mouth at bedtime No current facility-administered medications for this visit. (Other) Past Medical History: Diagnosis Date Cataract Hypercholesteremia (CMS/HCC) Hypertension (CMS/HCC) Allergies Allergen Reactions Doxycycline GI intolerance Review of Systems Constitutional: Negative. HENT: Negative. Eyes: Negative. Respiratory: Negative. Cardiovascular: Negative. Gastrointestinal: Negative. Genitourinary: Negative. Musculoskeletal: Negative. Skin: Negative. Neurological: Negative. Psychiatric/Behavioral: Negative. Hematological: Negative. Endocrine: Negative. Allergic/Immunologic: Negative. Objective Base Eye Exam Visual Acuity (Snellen - Linear) Right Left Dist cc 20/60 20/20 -1 Correction: Glasses Pupils Pupils Right PERRL Left PERRL Visual Dorsey Left Right Full Full Extraocular Movement Right Left Full Full Neuro/Psych Oriented x3: Yes Dilation Both eyes: 1.0% Mydriacyl @ 11:50 AM Additional Tests Keratometry K1 Darlington K2 Darlington Right 42.00 102 42.25 012 Left 42.25 180 42.25 090 Glare Testing High Right 20/400 Left Slit Lamp and Fundus Exam External Exam Right Left External Rosacea Rosacea Slit Lamp Exam Right Left Lids/Lashes Blepharitis Blepharitis Conjunctiva/Sclera White and quiet White and quiet Cornea Decreased tear film Decreased tear film Anterior Chamber Deep and quiet Deep and quiet Iris Round and reactive Round and reactive Lens 3+ Nuclear sclerosis, 1+ Cortical cataract, 3+ Posterior subcapsular cataract Posterior chamber intraocular lens Anterior Vitreous Normal Normal Fundus Exam Right Left Disc Hazy view Normal Macula Normal Normal Vessels Normal Normal Periphery Normal Normal Refraction Wearing Rx Sphere Cylinder Darlington Add Right +2.75 -0.75 094 +3.00 Left +0.50 -0.50 079 +3.00 Manifest Refraction (Auto) Sphere Cylinder Darlington Right Left +0.75 -0.50 082 Unable to auto refract right eye (OD) Final Rx Sphere Cylinder Darlington Dist VA Add Right +1.50 -0.75 095 20/60 +3.00 Left Expiration Date: 03/13/2025 Assessment/Plan Age-related nuclear cataract of right eye - Visually Significant Cataract, OU: I discussed the risks, benefits, alternatives, and expectations of cataract surgery. A complete ophthalmic exam was performed and it was determined that the cataracts were a primary source of vision decline, affecting activities of daily living, necessitating removal. Limited vision post-surgery may occur with pre-existing conditions affecting other areas of the eye or the brain was explained and the patient displayed an understanding. The overall objective is to improve ADLs, not eliminate glasses or restore vision to 20/20. Tests were reviewed - the different lens options were explained including the yom-tq-dwznco fees for any upgrades. Intraocular lens (IOL) selection may be altered either prior to or during the procedure based on the doctor's discretion including reverting to a traditional intraocular lens (IOL). They understood that there will exist the potential of glasses prescription need post surgery for near, distance or possibly both. The patient stated a full understanding and a desire to proceed with the procedure. The patient received cataract measurements and had any additional questions answered. - A complete exam was performed including a physical exam: General: AAOx3 and NAD, Lungs: Clear, Heart: RRR, Abdomen: S/NT/ND, Extremities: no pitting edema. - Coordination of care will be shared with Dr. Sullivan. Cataract Surgery for OD - 03/19. documented in this encounterCedar County Memorial [id number] History of Present illness Narrative* Susanne Pratt, RT(R) - 12/02/2023 3:00 PM EDT RADIOLOGY SERVICE PROGRESS NOTE SERVICE DATE: 12/02/2023 [...] PATIENT PRESENTS WITH AN IMPLANTABLE OR ATTACHED WEAPONS SPECIALIST: No CREATININE: Creatinine Date Value Ref Range [...] creatinine assay has traceable calibration to isotope dilution- mass spectrometry. Refer to KDIGO guidelines for clinical interpretation. In patients with unstable renal function, e.g. those with acute kidney injury, the eGFRmay not accurately reflect actual GFR. P.O.C.T. RESULTS: N/A December 02, [address] PERFORMED: No IV SITE: Ambulatory: A peripheral IV was started in the Left antecubital site with a Angio cath: 24gauge. POST EXAM PIV STATUS: Discontinued PROCEDURE TYPE: NM INJECT: CARDIAC AMYLOID SPECT/CT. 22.6 mCi Tc99m HDP. No other medications given.. ADMINISTRATION TIME: 11:36 PATIENT DISCHARGED TO: Ambulatory patient, left NH department area. A Diagnostic radioactive procedure has taken place, with no further precautions necessary other than routine body substance precautions. More information regarding radiation safety can be found usingthis link: [email or web address]%20Nuclear%20Medicine%[email or web address] SIGNATURE: MARCELLA [place]) PATIENT NAME: Caro Hector DATE: December 02, 2023 TIME: 12:21 PM PAGER/CONTACT #: documented in this encounterPremier Health Miami Valley Hospital North09-27-2024 NoteHNO ID: [id number] Author: SUSANNE PRATT RT (R) Service: Nuclear Medicine Author Type: [...] PATIENT PRESENTS WITH AN IMPLANTABLE OR ATTACHED WEAPONS SPECIALIST: No CREATININE: Creatinine Date Value Ref Range [...] 11:36 PATIENT DISCHARGED TO: Ambulatory patient, left NH department area. A Diagnostic radioactive procedure has taken place, with no further precautions necessary other than routine body substance precautions. More information regarding radiation safety can be found using this link: [email or web address] 20Diagnostic%20Nuclear%20Medicine%[email or web address] SIGNATURE: RT Bonita(R) PATIENT NAME: Caro Hector DATE: December 02, 2023 TIME: 12:21 PM PAGER/CONTACT #:[facility] [phone] Telephone encounter Note* Telephone Encounter - Deborah Meraz RN - 12/01/2023 3:05 PM EDT Printed and faxed to number provided. Confirmation received. [facility]09-26-2024 Miscellaneous Notes* Telephone Encounter - Deborah Meraz RN - 12/01/2023 3:05 PM EDT Printed and faxed to number provided. Confirmation received. * Telephone Encounter - Priscilla Odell - 12/01/2023 2:02 PM EDT Patient would like his records and testings from Dr Dillon faxed over to his PCP please fax to: [phone] Attn: Braeden Orellana. Please send over. Patient has been identified by name and birthdate. Duration of symptoms: N/A Person calling: spouse: Hilaria Call patient at: on cell [phone] (cell) Was an appointment scheduled: No Closing statement: Results or non-symptom based questions: Thank you for calling [facility], your call will be returned within the next business day. Priscilla Denney documented in this encounterPremier Health Miami Valley Hospital North09-26-2024 Telephone encounter Note * Telephone Encounter - Priscilla Odell - 12/01/2023 2:02 PM EDT Patient would like his records and testings from Dr Dillon faxed over to his PCP please fax to: [phone] Attn: Braeden Orellana. Please send over. Patient has been identified by name and birthdate. Duration of symptoms: N/A Person calling: spouse: Hilaria Call patient at: on cell [phone] (cell) Was an appointment scheduled: No Closing statement: Results or non-symptom based questions: Thank you for calling [facility], your call will be returned within the next business day. Priscilla Denney [facility]09-17-2024 History of Present illness Narrative* Surinder Dillon MD - 11/22/2023 3:00 PM EDT Images from the original note were not included. [facility] Department of Cardiovascular Medicine SECTION [...] size, normal RVSF; mod , mild AI, trileafletAV - RENETTA 1.5cm2, Assessment & Plan Aortic [...] Now on rosuvastatin lipids improved with Dr. Orellana. Plan: Rosuvastatin 20mg every day , Lisinopril 20mg bid, Amlodipine 2.5mg bid -Re-eval aortic valve disorder in ~ 9 months -Tc-PYP scan and UPEP, KUN, FLC ordered today for amyloid work-up as well as Lp(a) and repeat lipids and BNP/BMP hemodynamics for -Echocardiogram ~ 9 months with follow-up Thank you, CONTACT INFORMATION: Surinder Dillon M.D. Cardiovascular Medicine Staff [facility] Mail Code [id number] [facility] [place] [address] documented in this encounterPremier Health Miami Valley Hospital North09-17-2024 NoteHNO ID: [id number] Author: SURINDER DILLON MD Service: ? Author Type: Physician Type: Progress Notes Filed: 11/22/2023 15:11 Note Text: [facility] Department of Cardiovascular Medicine SECTION [...] Now on rosuvastatin lipids improved with Dr. Orellana. Plan: Rosuvastatin 20mg every day , Lisinopril 20mg bid, Amlodipine 2.5mg bid -Re-eval aortic valve disorder in ~ 9 months -Tc-PYP scan and UPEP, KUN, FLC ordered today for amyloid work-up as well as Lp(a) and repeat lipids and BNP/BMP hemodynamics for -Echocardiogram ~ 9 months with follow-up Thank you, CONTACT INFORMATION: Sruinder Dillon M.D. Cardiovascular Medicine Staff [facility] Mail Code [id number] [facility] [place] [address] [facility]vbrcdhHol[facility]02-20-2024 History of Present illness Narrative* Surinder Dillon MD - 04/26/2023 1:00 PM EST Images from the original note were not included. [facility] Department of Cardiovascular Medicine SECTION [...] size, normal RVSF; mod , mild AI, trileafletAV - RENETTA 1.5cm2, Assessment & Plan Aortic [...] Dillon M.D. Cardiovascular Medicine Staff Jonathan [facility] Mail Code AVW2-1 [id number] [facility] [place] [address] documented in this encounterPremier Health Miami Valley Hospital North11-29-2023 Miscellaneous Notes* Telephone Encounter - Jackie Doran - 02/02/2023 1:01 PM EST Attempted to reach patient to schedule. Mail box was full and patient does not have my chart. * Telephone Encounter - Giselle Silverman MA - 02/02/2023 9:58 AM EST Received notes and referral request from [facility] requesting for pt to establish with Dr. Barnes for Moderate Aortic Stenosis. Will route to scheduling. Sent to scanning. documented in this encounterPremier Health Miami Valley Hospital North11-16-2023 Miscellaneous Notes* Telephone Encounter - Shavonne Reid - 01/20/2023 1:06 PM EST 1st attempt, tried to reach pt via phone, pt did not answer, vm box full. No mc * Telephone Encounter - Swati Doss - 01/15/2023 11:43 AM EST Patient: Caro Hector Date of : 1945 Patient phone number: [phone] Referring Provider for the encounter: Braeden Orellana Requesting Provider: Janes Barnes Reason for requesting visit (RFV/signs and symptoms/diagnosis): Moderate aortic stenosis, non rheumatic aortic valve stenosis Person calling: self Return call to: self Medical Records/Insurance Card scanned into [employer]: Yes Comments: n/a documented in this encounterPremier Health Miami Valley Hospital North10-09-2023 Evaluation note* Encounter Date Diagnosis Assessment Notes Treatment Notes Treatment Clinical Notes Dec, Medicare annual wellness visit, subsequent [...] reviewed and amended by provider signed below. Dec,Nonrheumatic aortic (valve) stenosis (ICD-10 - I35.0)He is asymptomatic I reviewed the past 3 years of Echocardiogram - RENETTA, Velocities and Gradients reviewed - he has moderatae He understands importance of controlling BP I suggested becoming established w/ a Launch Manager but he declined at this time Dec,Hypertension (ICD-10 - I10)This patient is instructed to consume a healthy, low-fat, low-salt diet. They are also encouraged to continue exercise to achieve/maintain a normal BMI. Dec,Hyperlipidemia type II (ICD-10 - E78.01)Instructed on diet and exercise with continued statin therapy.Discussed the beneficial effects of lo wering cholesterol in reducing the risk for cerebrovascular and cardiovascular disease. Dec,IFG (impaired fasting glucose) (ICD-10 - R73.01)Healthy diet and exercise. Monitor A1C in 6mo Dec,Restless leg syndrome (ICD-10 - G25.81)Continue medical treatment Much improved, occasionally will take 1/2 in afternoon Dec,LMD (periodic limb movement disorder) (ICD-10 - G47.61)Doesn't interfere w/ sleep, noticed by . Dec,Screening PSA (prostate specific antigen) (ICD-10 - Z12.5)Continue yearly PSA - his results are < 1 - mild BPH symptoms Dec,Screening for malignant neoplasm of colon declined (ICD-10 - Z53.20) [facility] Other 09-29-2023 Evaluation note* Encounter Date Diagnosis Assessment Notes Treatment Notes Treatment Clinical Notes Nov, Hypertension (ICD-10 - I10) Nov,Hyperlipidemia type II (ICD-10 - E78.01) Nov,Screening PSA (prostate specific antigen) (ICD-10 - Z12.5) Nov,High risk medication use (ICD-10 - Z79.899) [facility] Other 09-18-2023 NoteEchocardiology Procedure Exam Date/Time Accession # Ordering Dr. Charlton Transthoracic 11/22/2022 10:10 EDT [id number] BRAEDEN ORELLANA DO CPT code [id number] Reason for Exam (Echo Transthoracic Complete) I35.0 Nonrheumatic aortic (valve) stenosis Report [facility] [address] [place] [address] Adult Echocardiogram Report Name: CARO HECTOR Study Date: 11/22/2022 09:11 AM BP: 171/82 mmHg Patient Location: [facility] HR: 66 : 1945 Gender: Male Height: 64 in Age: 77 yrs Ethnicity: T Weight: 140 lb Reason For Study: I35.0 Nonrheumatic aortic (valve) stenosis BSA: 1.7 m2 History: Murmur, Aortic stenosis, HTN Ordering Physician: BRAEDEN ORELLANA Referring Physician: BRAEDEN ORELLANA Performed By: Maricarmen Reyes [facility] Interpretation Summary No comparison study is available. [...] Bill RUBY MD Transcribed by: SONAL Technologist: [facility]09-05-2023 Evaluation note* Encounter Date Diagnosis Assessment Notes Treatment Notes Treatment Clinical Notes Nov, Nonrheumatic aortic (valve) sten osis (ICD-10 - I35.0) Merged With [facility] Other 04-19-2023 Evaluation note* Encounter Date Diagnosis Assessment Notes Treatment Notes Treatment Clinical Notes Jun, Hypertension (ICD-10 - I10) This patient is instructed to consume a healthy, low-fat, low-salt diet. They are also encouraged to continue exercise to achieve/maintain a normal BMI. - continue to monitor at home Jun,Nonrheumatic aortic (valve) stenosis (ICD-10 - I35.0)Denies CP, syncope or tachycardia Echocardiogram due in October w/ plans for Cardiology referral Jun,ental abscess (ICD-10 - K04.7)Planning extraction of entire mouth Merged With [facility] Other Evaluation + Plan note No data available for this section [facility] noteNo InformationNortGeisinger Community [facility] Other Evaluation note* Diagnosis Nonrheumatic aortic valve stenosis- Primary Aortic valve disorders documented in this encounter [facility] Diagnosis Onset Date Resolution Status Aortic stenosis acuteElevated cholesterolacuteHypertensionacuteIFG (impaired fasting glucose) acuteRLS (restless legs syndrome)acute [facility] Work Phone: Evaluation note* Diagnosis Onset Date Resolution Status Aortic stenosis acuteElevated cholesterolacuteHypertensionacuteIFG (impaired fasting glucose) acuteRLS (restless legs syndrome)acuteCoughacuteWheezing on exhalationacuteAcute bronchitis due to other specified organismsnoneactive [facility] Work Phone: Evaluation note* Diagnosis Nonrheumatic aortic valve stenosis- Primary Aortic valve disorders Primary hypertension Unspecified essential hypertension Abnormal echocardiogram Nonspecific (abnormal) findings on radiological and other examination of other intrathoracic organs [facility] Diagnosis Nonrheumatic aortic valve stenosis Aortic valve disorders Primary hypertension Unspecified essential hypertension Abnormal echocardiogram Nonspecific (abnormal) findings on radiological and other examination of other intrathoracic organs [facility]* Diagnosis Onset Date Resolution Status Admit Date Aortic stenosis acuteNov2023 1:52pmColon cancer screening declinedacuteJanuary 24, 2024 1:52pmMedicare annual wellness visit, subsequentacuteJanuary 24, 2024 1:52pmRLS (restless legs syndrome)acuteJanuary 24, 2024 1:52pmScreening PSA (prostate specific antigen)acuteNov2023 1:52pm [facility] Work Phone: Evaluation note* Diagnosis Age-related nuclear cataract of right eye- Primary [facility] Diagnosis Onset Date Resolution Status Admit Date Hypercholesterolemia acuteMay 2024 9:55amHypertensionacuteMay 2024 9:55amIFG (impaired fasting glucose)acuteMay 2024 9:55amNonrheumatic aortic (valve) stenosis acuteMay 2024 9:55amRLS (restless legs syndrome)acuteMay 2024 9:55am [facility] Work Phone: Evaluation note* Diagnosis Nonrheumatic aortic valve stenosis- Primary Aortic valve disorders Primary hypertension Unspecified essential hypertension documented in this encounter [facility] general Narrative - Reported* Type Description Date Medical History IFG (impaired fasting glucose) Medical HistoryRestless leg syndromeMedical HistoryErectile dysfunction due to arterial insufficiencyMedical HistoryNonrheumatic aortic (valve) stenosisMedical HistoryHypertensionMedical HistoryPeyronie diseaseMedical HistoryHyperlipidemia type IISurgical HistoryLIPOMA [id number] HistorySEE SURGICAL [facility] Other Hospital Discharge instructions No data available for this section [facility] No data available for this section [facility] (narrative)* Outpatient Procedure (Routine) - AuthorizedSpecialtyDiagnoses / ProceduresReferred By ContactReferred To [facility] Diagnoses Nonrheumatic aortic valve stenosis Procedures ECHO ECHO TTHRC R-T 2D W/WOM-MODE COMPL SPEC&[place] [address] [place] [address] [address] Referral IDStatSloanasonStart DateExpiration DateVisits RequestedVisits [id number] Auto-Generated Referral * Outpatient Procedure (Routine) - Pending ReviewSpecialtyDiagnoses / Procedures Referred By ContactReferred To [facility] Diagnoses Nonrheumatic aortic valve stenosis Procedures ECG COMPLETE ECG ROUTINE ECG W/LEAST 12 LDS W/I&R Surinder Dillon [place] [id number] [place] [address] [address] [address] [address] Referral IDStatReinaStraymondville DateExpiration DateVisits RequestedVisits [id number] Auto-Generated Referral [facility] (narrative)* Outpatient Procedure (Routine) - AuthorizedSpecialtyDiagnoses / ProceduresReferred By ContactReferred To [facility] Diagnoses Nonrheumatic aortic valve stenosis Primary hypertension Abnormal echocardiogram Procedures ECHO ECHO TTHRC R-T 2D W/WOM-MODE COMPL SPEC&[place] [address] [place] [address] [facility] [address] [place] [address] Referral IDStatusReasonStart DateExpiration DateVisits RequestedVisits [id number] Auto-Generated Referral / * Diagnostic Procedure Only (Routine) - AuthorizedSpecialtyDiagnoses / ProceduresReferred By ContactReferred To ContactMOLECULAR & [facility]AG[facility] Diagnoses Nonrheumatic aortic valve stenosis Primary hypertension Abnormal echocardiogram Procedures NM SPECT/CT CARDIAC AMYLOID RP LOCLZJ CARMEN SPECT W/CT 1 AREA 1 DAY IMAGING Surinder Dillon [place] [id number] [place] [address] [facility] [address] [place] [address] Referral IDStatusReasonStart DateExpiration DateVisits RequestedVisits [id number] Auto-Generated Referral [facility] for referral (narrative)* Diagnostic Procedure Only (Routine) - ClosedSpecialtyDiagnoses / ProceduresReferred By ContactReferred To ContactMOLECULAR & FUNCTIONAL IMAGING Diagnoses Nonrheumatic aortic valve stenosis Primary hypertension Abnormal echocardiogram Procedures NM SPECT/CT CARDIAC AMYLOID RP LOCLZJ CARMEN SPECT W/CT 1 AREA 1 DAY IMAGING Surinder Dillon [place] [id number] [place] [address] [facility] [address] [place] [address] Referral IDStatusReasonStart DateExpiration DateVisits RequestedVisits [id number] Auto-Generated Referral [facility] for visit Narrative* Diagnostic Procedure Only (Routine) - ClosedSpecialtyDiagnoses / ProceduresReferred By ContactReferred To Contact [facility] Diagnoses Nonrheumatic aortic valve stenosis Primary hypertension Abnormal echocardiogram Procedures NM SPECT/CT CARDIAC AMYLOID RP LOCLZJ CARMEN SPECT W/CT 1 AREA 1 [place] [address] [place] [address] [facility] [address] [phone] Referral IDStatusReasonStart DateExpiration DateVisits RequestedVisits [id number] Auto-Generated Referral [facility] Summary Purpose Family History No Family History Records FoundNo Family History Records FoundNo Family History Records FoundNo Family History Records FoundNo Family History Records FoundNo Family History Records Found Advance Directives No Advanced Directives Records Found Advance Directive Response Recorded Date/ Time Advance Directives No March 30, 2023 12:58pm Advance Directive Response Recorded Date/ Time Advance Directives No March 30, 2023 11:58am Chief Complaint and Reason for Visit Chief Complaint 6 month follow up Reason for Visit Aortic stenosis Elevated cholesterol Hypertension IFG (impaired fasting glucose) RLS (restless legs syndrome) Chief Complaint 6 month follow up Amb Documentation coughReason for VisitAortic stenosis Elevated cholesterol Hypertension IFG (impaired fasting glucose) RLS (restless legs syndrome) Cough Wheezing on exhalation Acute bronchitis due to other specified organisms Chief Complaint Admit Date CC Adult Risk Stratification January 11:07am Medicare Wellness January 24, 2024 1:52pm Reason for Visit Admit Date Aortic stenosis January 24, 2024 1:52pm Colon cancer screening declined January 24, 2024 1:52pm Medicare annual wellness visit, subseque nt January 24, 2024 1:52pm RLS (restless legs syndrome) January 232023 1:52pm Screening PSA (prostate specific antigen ) January 24, 2024 1:52pm Chief Complaint Admit Date 6 month f/u July 17, 2024 9:55a m Reason for Visit Admit Date Hypercholesterolemia July 17, 2024 9:55 am Hypertension July 17, 2024 9:55a m IFG (impaired fasting glucose) July 17, 2024 9:55am Nonrheumatic aortic (valve) stenosis July 17, 2024 9:55am RLS (restless legs syndrome) July 17, 2 025 9:55am Additional Source Comments (unrecognized sect ion and content) No Status Records FoundNo Status Records FoundNo Status Records FoundNo Status Records FoundNo Status Records FoundNo Status Records Found INFORMATION SOURCE (unrecogn ized section and content) DATE CREATED AUTHOR 08/25/2017 [facility] DATE CREATED AUTHOR AUTHOR'S ORGANIZ ATION 12/11/2021 [facility] DATE CREATED AUTHOR AUTHOR'S ORGANIZ ATION 11/23/2022 [facility] DATE CREATED AUTHOR AUTHOR'S ORGANIZ ATION 12/03/2023 [facility] DATE CREATED AUTHOR AUTHOR'S ORGANIZ ATION 03/19/2024 [facility] DATE CREATED AUTHOR AUTHOR'S ORGANIZ ATION 08/08/2024 [facility] REASON FOR VISIT (unrecogniz ed section and content) ReasonCommentsExternal Referrals/resourcesReasonCommentsAppointmentReason CommentsNew PatientReasonCommentsEstablished PatientReasonCommentsFax over Records to PCPReasonOnset DateCommentsMed Txwayg4803/13/2024ReasonCommentsCataract ReasonCommentsEstablished Patient Patient Care team informatio n (unrecognized section and content) Team Status: Active Member Role Status Dates Braeden Orellana DO Primary Care Provider Active Team Status: Inactive Member Role Status Dates Braeden Orellana DO Primary Care Provide r, Attending Provider Active Start: July 17, 2024 End: July 17, 2024 Team Status: Active Member Role Status Dates Braeden Orellana DO Primary Care Provider Active Start: November 24, 2023 Martha Ritter ProviderActiveStart: November 24, 2023 Team Status: Active Member Role Status Dates Braeden Orellana DO Primary Care Provide r, Attending Provider Active Start: January 06, 2024 Team Status: Active Member Role Status Dates Braeden Orellana DO Primary Care Provide r, Attending Provider Active Start: January 19, 2024 Team Status: Inactive Member Role Status Dates Braeden Orellana DO Primary Care Provide r, Attending Provider Active Start: January 24, 2024 End: January 24, 2024Team MemberRelationshipSpecialtyStart DateEnd Date Braeden Orellana, DO [facility]02/15/06Team MemberRelationshipSpecialtyStart DateEnd Date Braeden Orellana DO [facility]02/15/06 Team Status: Inactive Member Role Status Dates Braeden Orellana DO Primary Care Provide r, Attending Provider Active Start: June 14, 2023 End: June 14, 2023 Team Status: Active Member Role Status Dates Braeden Orellana DO Primary Care Provider Active Start: June 15, 2023 KEKE AtkinsonAAttenmadue ProviderActiveStart: June 15, 2023 Team Status: Active Member Role Status Dates Braeden Orellana DO Primary Care Provide r, Attending Provider Active Start: August 10, 2023 Team Status: Inactive Member Role Status Dates Braeden Orellana DO Primary Care Provide r, Attending Provider Active Start: August 22, 2023 End: August 22, 2023Team MemberRelationshipSpecialtyStart DateEnd Date Braeden Orellana, DO [facility]02/15/06Team MemberRelationshipSpecialtyStart DateEnd Date Braeden Orellana DO [facility]02/15/06Team MemberRelationshipSpecialtyStart DateEnd Date Braeden Orellana, DO [facility]02/15/06Te MemberRelationshipSpecialtyStart DateEnd Date Braeden Orellana DO [facility]02/15/06Team MemberRelationshipSpecialtyStart DateEnd Date Braeden Orellana MD [address] [place] [address] PCP - GeneralInternal Medicine03/13/24Te MemberRelationshipSpecialtyStart Date End Date Braeden Orellana MD [address] [place] [facility] [place] [phone] PCP - GeneralInternal Medicine03/13/24Te MemberRelationshipSpecialtyStart Date End Date Braeden Orellana MD [address] [place] [address] PCP - GeneralInternal Medicine03/13/24 Topher Sullivan OD [address] [place] [phone] Referring PhysicianOptometry03/13/24Te MemberRelationshipSpecialtyStart DateEnd Date Braeden Orellana DO PCP - Hvoaiaz93/12/06 Source Comments (unrecognize d section and content) In the event this informatio n is protected by the Federal Confidentiality of Alcohol and Drug Abuse Patient Records regulations: The Federal rules restrict any use of the information to criminally investigate or prosecute any alcohol or drug abuse patient.[facility]In the event this information is protected by the Federal Confidentiality of Alcohol and Drug Abuse Patient Records regulations: The Federal rules restrict any use of the information to criminally investigate or prosecute any alcohol or drug abuse patient.[facility] NorthIn the event this information is protected by the Federal Confidentiality of Alcohol and Drug Abuse Patient Records regulations: The Federal rules restrict any use of the information to criminally investigate or prosecute any alcohol or drug abuse patient.[facility] NorthIn the event this information is protected by the Federal Confidentiality of Alcohol and Drug Abuse Patient Records regulations: The Federal rules restrict any use of the information to criminally investigate or prosecute any alcohol or drug abuse patient.[facility] NorthIn the event this information is protected by the Federal Confidentiality of Alcohol and Drug Abuse Patient Records regulations: The Federal rules restrict any use of the information to criminally investigate or prosecute any alcohol or drug abuse patient.[facility] NorthIn the event this information is protected by the Federal Confidentiality of Alcohol and Drug Abuse Patient Records regulations: The Federal rules restrict any use of the information to criminally investigate or prosecute any alcohol or drug abuse patient.[facility] NorthIn the event this information is protected by the Federal Confidentiality of Alcohol and Drug Abuse Patient Records regulations: The Federal rules restrict any use of the information to criminally investigate or prosecute any alcohol or drug abuse patient.[facility] NorthIn the event this information is protected by the Federal Confidentiality of Alcohol and Drug Abuse Patient Records regulations: The Federal rules restrict any use of the information to criminally investigate or prosecute any alcohol or drug abuse patient.[facility] Goals (unrecognized section and content) Goals may [...] BE BASED ON THE PRIMARY CLINICAL RECORDS. [facility]. provides no warranty or guarantee of the accuracy or completeness of information in this document.
[2025-01-22 08:50] LABS: Alanine Aminotransferase 28 U/L (16-63); Albumin Globulin Ratio 1.0; Albumin Level 3.6 g/dL (3.4-5.0); Alkaline Phosphatase 84 U/L (46-116); Anion Gap 11.7; Aspartate Amino Transferase 18 U/L (15-37); Blood Urea Nitrogen 13.0 mg/dL (7.0-18.0); Calcium 9.0 mg/dL (8.5-10.1); Carbon Dioxide 29.5 mmol/L (21.0-32.0); Chloride 103 mmol/L (98-107); Cholesterol 169 mg/dL (<=200); Estimated GFR (African America >60 (>=60 mL/min/1.73m^2); Estimated GFR (Non-African Ame >60 (>=60 mL/min/1.73m^2); Globulin 3.5 g/dL; Glucose 123 mg/dL (74-106); HDL Cholesterol 68 mg/dL (40-60); Potassium 4.2 mmol/L (3.5-5.1); Sodium 140 mmol/L (136-145); Total Protein 7.1 g/dL (6.4-8.2); Triglycerides 87 mg/dL (<=150); VLDL CHOLESTEROL 17.4 mg/dL
[2025-01-22 09:18] LABS: Hematocrit 44.8 % (42.0-54.0); Hemoglobin 14.8 g/dL (14.0-18.0); Immature Granulocytes Abs Auto 0.02 10^3/uL (0.00-0.03); Immature Granulocytes Pct Auto 0.3 % (0.0-0.5); Lymphocytes Absolute Auto 1.5 10^3/uL (1.2-3.8); Mean Corpuscular HGB Conc 33.0 g/dL (29.9-35.2); Mean Corpuscular Hemoglobin 29.8 pg (25.9-34.0); Mean Corpuscular Volume 90.1 fL (80.0-94.0); Platelet Count 211 10^3/uL (150-450); Red Blood Count 4.97 10^6/uL (4.70-6.10); White Blood Count 7.5 10^3/uL (4.0-11.0)
== END 2025-01-22 07:50 | disposition home or self-care (01) ==
LOC: LAB 07:51
PROVIDERS: PCP Internal Medicine; Visit Provider Internal Medicine
DX: Z12.5 Encounter for screening for malignant neoplasm of prostate (principal); E78.00 Pure hypercholesterolemia, unspecified; R73.01 Impaired fasting glucose; I10 Essential (primary) hypertension
CPT/HCPCS: 36415; 80053; 80061; 83036; 85025; G0103